=== PATIENT | male | born 1965 | race Caucasian/White ===

== ENCOUNTER 2018-03-23 08:33 | Day surgery (SDC) | payer OTHER, SELFPAY ==
--- NOTE | 2018-03-23 | COLBX_PTH ---
PATIENT: ROCKY COOLEY LOC: EN U#:[id number] AGE/SX: 52/M ROOM: RE03/23/[address]: Dr. Shade Toure MD : 1965 BED: DIS: 03/23/2018 SPEC #: [id number] RECD: 03/23/18 12:02 STATUS: ESTEE DARLYN #: [id number] STEFAN: 03/23/18 00:[address]: Shade Toure DEPT: SURGICAL PATHOLOGY RECD BY: Tyler Acharya ENTERED: 03/23/18 14:50 SP TYPE: COLON BX OTHR DR: Dr. Nnamdi Garcia MD Tissues: Rectum, NOS Procedures: Surgery Specimen Level IV HEADER OPERATION: Colonoscopy PRE-OP DIAGNOSIS: Screening TISSUE SUBMITTED: Rectal polyps (two) MICROSCOPIC DIAGNOSIS Rectal polyps, biopsy: Fragments of tubular adenoma. SJ:woody 03/29/18 MICROSCOPIC DESCRIPTION Slides are reviewed. GROSS DESCRIPTION Received in fixative is one container labeled with the patient's name and designated rectal polyps. The specimen consists of three irregular fragments of light power soft tissue that in aggregate measure 0.6 x 0.5 x 0.2 cm. The specimen is totally submitted in one cassette. / AM:woody 03/23/18 TC:1 CPT: 40226
[2018-03-23 09:01] VITALS: BP 133/85; PULSE 80; RESP 16; TEMP 36.7; O2SAT 99; BMI 31.1
--- NOTE | 2018-03-23 09:55 | H&P.OPEN ---
Past Medical/Surgical History - Planned Operation Planned Operative Procedure/s: cscope Date of Operative Procedure: 03/23/18 Permit Signed: No S.O.S: No Is This Patient Having a Total Joint: No - Previous Hospitalizations/Surgeries HX Hospitalizations: No HX of Surgeries: knee scope. vasectomy Any Problems With Anesthesia: No You/Your Family Experience Fever (Hyperthermia) With Anes: No Cholinesterase deficiency: No - Cardiovascular Hx Chest Pain within Last 2 months: No Hx of Irregular Heartbeat and/or Afib: Yes - pvc's occ Hx Heart Attack: No Hx Congestive Heart Failure: No Hx Rheumatic Fever: No Hx Hypertension: No Hx Internal Defibrillator: No Hx Pacemaker: No Hx Cardiac Catheterization: No Hx Cardiac Surgery/Stents/Etc.: No Hx Stress Test: No HX Edema: No Hx Pain in Legs when Walking/Leg Cramps: No - Respiratory Chronic Cough: No HX of Shortness of Breath: No Hoarseness: No Hx Chronic Obstructive Pulmonary Disease (COPD): No Hx Asthma: No Hx Emphysema: No Hx Sleep Apnea: Yes CPAP: Yes BIPAP: No Hx Oxygen Use at Home: No Hx Respiratory Tract Infection/Cold (presently): No Result (for STOP score): Positive Hx Smoking: No Smoking Status: Never smoker - Gastrointestinal Hx Gastroesophageal Reflux: No Hx Gastrointestinal Disorders: No Hx Gastrointestinal Bleed: No Hx Ulcer: No Hx Hiatal Hernia: No Difficulty Chewing/Swallowing: No Recent Onset of Swallowing Problems: No Special diet followed at home: No Hx Unplanned Weight Loss of 20#: No HX Unplanned Weight Gain of 20#: No - Neurological Hx Seizures: No HX Syncope/Blackout Spells/Unconsciousness: No Hx CVA/Stroke: No Hx Transient Ischemic Attacks (TIA): No Hx Multiple Sclerosis: No Hx Parkinson's Disease: No Hx Head/Neck Injury: No Hx Headaches: No Hx Back Injury/Pain: No Recent Onset of Speech Difficulty: No Restless Legs: Yes - occ Does patient have nerve stimulator: No Patient instructed to have device shut off: No Rep notified?: No - Blood Disorder Hx Leukemia: No Bleeding Tendencies: No Hx Deep Vein Thrombosis: No Hx High Cholesterol: Yes - on med Blood Transmitted Disease: No Hx Hepatitis: No Hx Cirrhosis: No Hx Anemia: No Hx Blood Disorders: No - Genitourinary Hx Renal Disease: No - Musculoskeletal Hx Arthritis: No Hx Rheumatoid Arthritis: No Hx Gout: No Recent Onset of an Orthopedic Problem: No - Endocrine Hx Diabetes: No Thyroid Disease: No Hx Steroid Therapy: No - Psycho/Social Hx Substance Use: No Hx Alcohol Use: Yes - socially Hx Anxiety: No Hx Depression: No Mental Illness: No Hx Dementia: No - Miscellaneous Hx Cancer: No Recent Exposure to Contagious Disease: No Active MRSA: No Hx of C-Diff: No Any Loose Teeth: No Allergies latex Allergy (Verified 03/20/18 14:47) Itching - Discharge Is Pt Admitted From a Assisted, or a Fpc: No Who Could Help: family After D/C, Where Do you Plan to Go: Return Home - Physical Exam General: Alert, Oriented x3, Cooperative Neck: No JVD Lungs: Normal air movement Cardiovascular: Regular rate, Regular Rhythm Abdomen: Soft, Non Tender, Non-Distended Vital Signs Temp Pulse Resp BP Pulse Ox 98.1 F 80 16 133/85 H 99 03/23/18 09:01 03/23/18 09:01 03/23/18 09:01 03/23/18 09:01 03/23/18 09:01 Oxygen Delivery Method Room Air Weight: 242 lb 15.19 oz Body Mass Index (BMI) 31.1 Assessment/Plan 52-year-old male for screening colonoscopy 1. Patient reports he has never had a colonoscopy in the past. He has no family history of colon cancer. He has no active issues at this time. He has no bleeding or abdominal pain. 2. I explained endoscopy in detail to the patient. I explained the risks including but not limited to stroke or heart attack with anesthesia, perforation of the GI tract, bleeding, infection. I explained that any of these could necessitate further emergency surgery. The patient understands and all questions were answered sufficiently. The patient wishes to proceed with procedure. Shade Toure MD Pager: [facility] [address] [place] [address] [address] [place] [address] Office: Surgery Risks - Colonoscopy Risks Include but are not Limited To: Risks include but are not limited to: Bleeding, perforation requiring further surgery, inability to complete colonoscopy requiring barium enema.
--- NOTE | 2018-03-23 10:28 | PCM.OPRPT ---
Problem List (1) Screen for colon cancer Status: Acute Report of Operation Date of Procedure: 03/23/18 Pre-Operative Diagnosis: Screening colon cancer Post-Operative Diagnosis: 2 rectal polyps Surgery/Procedure Performed:: Colonoscopy with snare polypectomy Description of Procedure: The major risks and benefits associated with the procedure were explained to the patient in detail. The patient verbalized understanding and agreement with the same. The patient was brought to the endoscopy suite. After adequate sedation was achieved, the patient was placed in the left lateral decubitus position and a digital rectal exam was performed. This examination was within normal limits. A well-lubricated colonoscope was then inserted into the rectum and advanced under direct visualization to the level of the cecum. The bowel prep was good. The cecum was identified by both visual and anatomic landmarks. A photograph was taken of the end of the cecum. The scope was then fully withdrawn while examining the color, texture, anatomy and integrity of the mucosa from the cecum to the anal canal. The patient did have 2 small polyps in the rectum. These were both removed with cautery snare. Hemostasis was good at both sites. Otherwise the findings were consistent with normal colonic mucosa. Over 6 minutes were taken to examine the colonic mucosa. Upon reaching the rectum the scope was retroflexed to examine the distal rectal vault. The scope was then straightened and was completely retrieved upon exiting the anal canal and the procedure was terminated. The patient was then transferred to the recovery room in stable condition. Recommendations for follow up: Dependent on pathology
[2018-03-23 10:31] VITALS: BP 133/85; BP 149/93; PULSE 86; RESP 18; TEMP 37.1; O2SAT 98
[2018-03-23 10:35] VITALS: BP 133/85; BP 143/100; PULSE 90; RESP 16; O2SAT 98
[2018-03-23 10:43] VITALS: BP 133/85; BP 137/94; PULSE 87; RESP 16; O2SAT 96
[2018-03-23 10:47] VITALS: BP 133/85; BP 153/92; PULSE 81; RESP 18; O2SAT 96
[2018-03-23 11:10] VITALS: BP 133/85
== END 2018-03-23 11:12 | disposition home or self-care (01) ==
LOC: EN 08:34
PROVIDERS: Family Provider Family Medicine; PCP Family Medicine; Visit Provider Surgery
PROC: 0DJD8ZZ Inspection of Lower Intestinal Tract, Via Natural or Artificial Opening Endoscopic (ICD-10-PCS; CPT 45378; principal; 2018-03-23 09:40)
DX: Z12.11 Encounter for screening for malignant neoplasm of colon (principal); D12.8 Benign neoplasm of rectum; Z79.899 Other long term (current) drug therapy; G47.30 Sleep apnea, unspecified; G25.81 Restless legs syndrome; E78.00 Pure hypercholesterolemia, unspecified
CPT/HCPCS: 45385; 88305; J7120

== ENCOUNTER → 2019-02-25 08:40 | Outpatient (CLI) | payer OTHER, SELFPAY ==
[2019-02-25 11:23] LABS: ALB/GLOB Ratio 1.4 RATIO (0.9-2.4); AST(SGOT) 20 U/L (15-37); Alanine Aminotransfer ALT/SGPT 28 U/L (16-61); Albumin, Serum 4.2 g/dL (3.2-5.0); Alkaline Phosphatase 42 U/L (45-117); Anion Gap 7 (5-15); BUN 14 mg/dL (7-18); BUN/Creat Ratio 14.5 RATIO (10-20); Chloride 108 mmol/L (98-107); Creatinine, Serum 0.96 mg/dL (0.70-1.30); EST Glomerular Filtration Rate 87 mL/min (>60); Est Glom Filt Rate - Afr Amer 105 mL/min (>60); Glucose 91 mg/dL (74-106); Potassium 4.6 mmol/L (3.5-5.1); Protein, Total 7.2 g/dL (6.4-8.2); Sodium Level 142 mmol/L (136-145)
== END ==
PROVIDERS: Family Provider Family Medicine; PCP Family Medicine; Referring Provider Family Medicine; Visit Provider Family Medicine
DX: E78.2 Mixed hyperlipidemia (principal)
CPT/HCPCS: 36415; 80053

== ENCOUNTER → 2019-05-17 12:13 | Outpatient (CLI) | payer OTHER, SELFPAY ==
[2019-05-17 15:58] LABS: Absolute Neutrophil Count 3.4 X10^3/uL (2.0-7.7); Basophil# 0.05 X10^3/uL; Basophil% 0.9 % (0-1); Eosinophil# 0.03 X10^3/uL; Eosinophils% 0.5 % (0-5); Hematocrit 44.6 % (40-54); Hemoglobin 15.1 g/dL (13.0-16.5); Lymphocyte % 32.4 % (19-41); Mean Corp Hgb Conc 33.9 g/dL (32-36); Mean Corpuscular Hgb 30.3 pg (27.0-32.0); Mean Corpuscular Volume 89.4 fL (80-94); Mean Platelet Vol. 10.9 fl (6.2-12.0); Monocyte# 0.52 X10^3/uL; Monocyte% 8.9 % (0-10); NRBC Flagged by Analyzer 0 % (0-5); Neutrophil # 3.36 X10^3/uL (2.7-7.7); Neutrophil % 57.1 % (47-70); Platelet Count 224 K/mm3 (150-450); RBC Distribution Width CV 12.2 % (11.6-14.6); RBC Distribution Width SD 39.8 fl (35.1-43.9); Red Blood Count 4.99 M/mm3 (4.6-6.2); White Blood Count 5.9 K/mm3 (4.4-11.0)
[2019-05-17 16:11] LABS: ALB/GLOB Ratio 1.5 RATIO (0.9-2.4); AST(SGOT) 14 U/L (15-37); Alanine Aminotransfer ALT/SGPT 27 U/L (16-61); Albumin, Serum 4.4 g/dL (3.2-5.0); Alkaline Phosphatase 45 U/L (45-117); Anion Gap 9 (5-15); BUN 12 mg/dL (7-18); Calcium,Total 9.2 mg/dL (8.5-10.1); Chloride 107 mmol/L (98-107); EST Glomerular Filtration Rate 83 mL/min (>60); Est Glom Filt Rate - Afr Amer 101 mL/min (>60); Globulin 2.9 g/dL (2.2-4.2); Glucose 90 mg/dL (74-106); Lipase 212 U/L (73-393); Potassium 4.6 mmol/L (3.5-5.1); Protein, Total 7.3 g/dL (6.4-8.2); Sodium Level 142 mmol/L (136-145)
== END ==
PROVIDERS: Family Provider Family Medicine; PCP Family Medicine; Referring Provider Family Medicine; Visit Provider Family Medicine
DX: R10.9 Unspecified abdominal pain (principal)
CPT/HCPCS: 36415; 80053; 83690; 85025

== ENCOUNTER → 2019-09-30 10:14 | Outpatient (CLI) | payer OTHER, SELFPAY ==
[2019-09-26 07:55] VITALS: BMI 31.1
--- NOTE | 2019-09-30 10:17 | US_ITS ---
STUDY: ABDOMINAL ULTRASOUND - RIGHT UPPER QUADRANT REASON FOR VISIT: Male, 53 years old abdominal pain. Right upper quadrant pain. TECHNIQUE: Ultrasound evaluation of the right upper quadrant was performed with real-time and static puente-scale imaging. TECHNICAL QUALITY: Adequate. COMPARISON: None. FINDINGS: Liver: The liver measures 16.5 cm. There is normal echogenicity of the liver. The bile ducts are within normal limits. There is hepatic color flow. The direction of portal flow is hepatopetal. There is no demonstrated mass lesion. Gallbladder: Normal distended gallbladder. The gallbladder wall measures 3 mm. There is a negative sonographic Rain''s sign. There is no pericholecystic fluid. There are no gallstones. Common Bile Duct (C.B.D.): The common bile duct measures 4 mm. Pancreas: Normal size of the head, body and tail of the pancreas. There is normal echogenicity of the pancreas. There is no demonstrated pancreatic mass or cyst. Right Kidney: Normal size of the right kidney. The right kidney measures 12.1 cm. Normal renal cortex. The right cortex measures 1.3 cm. There is no demonstrated renal mass or cyst. There is no right hydronephrosis. US/Abdomen Limited IMPRESSION: Normal right upper quadrant ultrasound examination. Electronically Signed: Leonid Naylor DO at 18:25 EST Tel [phone], Service support ,
== END ==
PROVIDERS: Family Provider Family Medicine; PCP Family Medicine; Referring Provider Surgery; Visit Provider Surgery
DX: R10.9 Unspecified abdominal pain (principal)
CPT/HCPCS: 76705

== ENCOUNTER 2019-10-08 05:22 | Day surgery (SDC) | payer OTHER, SELFPAY ==
[2019-09-26 07:55] VITALS: BMI 31.1
[2019-10-08] VITALS (7 sets, daily range): BP systolic 137–169; BP diastolic 75–104; PULSE 89–102; RESP 16; TEMP 36.3–37.4; O2SAT 95–100; BMI 31.9
--- NOTE | 2019-10-08 | IMM_PTH ---
PATIENT: ROCKY COOLEY LOC: [facility] U#:[id number] AGE/SX: 53/M ROOM: RE10/08/[address]: Dr. Sherman uHff MD : 1965 BED: DIS: 10/08/2019 SPEC #: [id number] RECD: 10/09/19 13:57 STATUS: ESTEE REQ #: [id number] STEFAN: 10/08/19 00:[address]: Sherman Huff DEPT: IMMUNOHISTOCHEMISTRY RECD BY: Cherry Lennon ENTERED: 10/09/19 13:57 SP TYPE: IMMUNO OTHR DR: Dr. Nnamdi Garcia MD Tissues: B - Stomach, NOS Procedures: P53 (initial) PHYSICIAN & INSTITUTION [place] [address] SPECIMEN INFORMATION: Tissue Source: B - Antral nodule, biopsy Clinical Info: Epigastric pain Specimen Number: [id number] CPT code: 17633 METHODOLOGY: Deparaffinized sections of prefer/formalin-fixed tissue or PAP/DQ stained slides are incubated with monoclonal/polyclonal antibodies/oligonucleotide probes. Localization is made via biotin free immunoperoxidase method. Appropriate controls are performed and reacted as expected. Results on target cell population are indicated in the following table: RESULTS: ANTIBODY / CLONE RESULT Block B P53 (DO-7) negative These tests were developed and their performance characteristics determined by [facility]. They may not have been cleared or approved by the U.S. Food and Drug Administration. The FDA has determined that such clearance or approval is not necessary. The above immunohistochemical/dualISH markers are ordered and reviewed by the Pathologist. INTERPRETATION: B. Antral nodule, biopsy: No evidence of dysplasia. SJ:woody 10/10/19
--- NOTE | 2019-10-08 | COLBX_PTH ---
PATIENT: ROCKY COOLEY LOC: EN U#:[id number] AGE/SX: 53/M ROOM: RE10/08/[address]: Dr. Sherman Huff MD : 1965 BED: DIS: 10/08/2019 SPEC #: [id number] RECD: 10/08/19 13:21 STATUS: ESTEE DARLYN #: [id number] STEFAN: 10/08/19 00:[address]: Sherman Huff DEPT: SURGICAL PATHOLOGY RECD BY: Saul Bell ENTERED: 10/08/19 13:22 SP TYPE: COLON BX OTHR DR: Dr. Nnamdi Garcia MD Tissues: A - Duodenum, NOS B - Gastric mucous membrane C - Esophagus, NOS D - Esophagus, NOS Procedures: Special Stain Group II Surgery Specimen Level IV Alcian Blue/PAS (control) HEADER OPERATION: EGD (MOD) PRE-OP DIAGNOSIS: Epigastric pain TISSUE SUBMITTED: A - Duodenal biopsy, B - Antral nodule biopsy, C - Distal esophageal biopsy, D - Mid esophageal biopsy MICROSCOPIC DIAGNOSIS A. Duodenum, biopsy: No pathologic change. B. Gastric antrum, biopsy: Mild chronic inflammation. Focal intestinal metaplasia. No evidence of dysplasia. See comment. C. Distal esophagus, biopsy: Fragments of benign squamous mucosa. No evidence of inflammation. D. Mid esophagus, biopsy: Fragments of benign squamous mucosa with changes of reflux. AM:woody 10/09/19 COMMENT B. Alcian blue/PAS stain with matched control supports the above diagnosis. Immunohistochemistry ([id number]) supports the above diagnosis. MICROSCOPIC DESCRIPTION Slides are reviewed. GROSS DESCRIPTION A - Received in fixative is one container labeled with the patient's name and designated duodenal biopsy. The specimen consists of one irregular fragment of light power soft tissue that measures 0.4 x 0.3 x 0.1 cm. The specimen is totally submitted in one cassette. B - Received in fixative is one container labeled with the patient's name and designated antral nodule biopsy. The specimen consists of multiple irregular fragments of light power soft tissue that in aggregate measure 1 x 0.3 x 0.1 cm. The specimen is totally submitted in one cassette. C - Received in fixative is one container labeled with the patient's name and designated distal esophageal biopsy. The specimen consists of multiple irregular fragments of light power soft tissue that in aggregate measure 1 x 0.3 x .1 cm. The specimen is totally submitted in one cassette. D - Received in fixative is one container labeled with the patient's name and designated mid esophageal biopsy. The specimen consists of two irregular fragments of light power soft tissue that in aggregate measure 0.8 x 0.2 x 0.1 cm. The specimen is totally submitted in one cassette. / SJ:rg 10/08/19 TC:3 CPT: 27861 x4, 14129
--- NOTE | 2019-10-08 05:51 | HP.PCM_ITS ---
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 Required: No Is patient in pain?: No Allergies latex Allergy (Verified 09/26/19 07:53) Itching Medications Loratadine [Claritin] 10 mg PO DAILY 03/20/18 [History Confirmed 09/26/19] Multivitamin [Multiple Vitamins] 1 ea PO DAILY 03/20/18 [History Confirmed 09/26/19] Pitavastatin Calcium [Livalo] 4 mg PO DAILY 03/20/18 [History Confirmed 09/26/19] amitriptyline 25 mg tablet PO #90 tab 09/26/19 [History Confirmed 09/26/19] omega-3 fatty acids 1,000 mg capsule 1,000 mg PO DAILY 09/26/19 [History Confirmed 09/26/19] omeprazole 40 mg capsule,delayed release PO #90 cap 09/26/19 [History Confirmed 09/26/19] [facility] Medical History (Updated 09/26/19 @ 08:11 by Sherman Huff MD) Epigastric pain (Acute) Anxiety (Acute) GERD (gastroesophageal reflux disease) (Acute) Sleep apnea (Acute) Surgical History (Updated 09/26/19 @ 07:50 by Alexandrea Boudreaux) History of colonoscopy (Acute ~2017) History of vasectomy (Acute) Family History (Updated 09/26/19 @ 07:51 by Alexandrea Boudreaux) Father Heart disease Myocardial infarction Cancer pancreas Mother Diabetes Social History (Updated 09/26/19 @ 08:13 by Sherman Huff MD) Smoking Status: Never smoker alcohol intake: current HPI HPI HPI: ROCKY COOLEY, is a 53 M who presents to the office today for surgical consultation regarding epigastric pain with radiation to the back and bloating. The patient was referred by Dr. Maynor Fine and his primary care physician is Dr. Nnamdi Garcia. Written copy of my consult will be returned to them. Since April the patient has been having this trouble. He occasionally has nausea as well. More recently had. Pizza watching a Monday football game and then for actually several days later did not feel well. Had increased bloating nausea epigastric pain some radiation of pain to the back. He strictly denies having any reflux symptoms. He has been placed on omeprazole 40 mg daily and he thought that that improved his condition. However when he dropped back to 20 mg a day his symptoms seem to worsen. In April he was taking a significant amount of ibuprofen and Aleve but that now has stopped. He utilizes acetaminophen for other discomforts. He had laboratory obtained May 17, 2019 at the [facility]. A complete metabolic profile was not remarkable. AST slightly low at 14. White blood cell count was 5.9 with a hemoglobin 15.1 radha tocrit 44.6 with a count 224,000 with a normal shift. He thought he ran a slight fever this past weekend. 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 HPI HPI HPI: ROCKY COOLEY, is a 53 M who presents to the office today for ROS General General: No weight change, appetite, fatigue, colon cancer, breast cancer or weakness HEENT HEENT: No difficulty swallowing, eye injury, eye surgery, swollen glands or hoarseness Endo Endocrine: No thyroid disease, diabetes mellitus, thyroid cancer, Hair loss, heat intolerance or cold intolerance Cardio Cardiovascular: No murmur, pacemaker, heart disease, atrial fibrillation, high blood pressure, heart attack, heart stent, palpitations, shortness of breat with exertion or chest pain Psych Psychiatric: Yes anxiety; no depression or hearing voices Resp Respiratory: No shortness of breath, Yes sleep apnea, No cough, No COPD, No asthma, No emphysema, No wheezing Gastro Gastrointestinal: Yes abdominal pain, No nausea or vomiting, No diarrhea, No constipation, No blood in stool, Yes acid reflux, No hemorrhoids, No ulcers, No gallbladder problem, No black,tarry stools Radha Hematologic: No blood thinners, No blood disorders, No bleeding, No anemia, No blood clots Neuro Neurologic: No weakness Exam Const General: cooperative, healthy appearing, comfortable Nutritional Appearance: obese Orientation: alert, awake [facility] Head: normal to inspection Chest Chest palpation & inspection: normal inspection of the chest Resp Effort & Inspection: normal respiratory effort Auscultation: clear to auscultation bilaterally Cardio Rate: regular rate Rhythm: regular rhythm Heart Sounds: no murmurs GI Palpation: soft, no hepatosplenomegaly Auscultation: normal bowel sounds Skin General: no rashes or lesions noted Neuro Cognition: normal cognition Extrem General: no calf tenderness bilaterally Psych Affect: normal affect Assessment & Plan Problems 1. Epigastric pain R10.13 Plan 53-year-old gentleman with postprandial epigastric pain. He absolutely denies reflux or heartburn symptoms. He was improved on omeprazole but symptoms worsened upon decreasing the dosage. His most recent episode occurred after eating pizza and beer. His symptoms then lingered for several days. He has had laboratory drawn April 2019 which did not demonstrate any liver function test abnormality. I proposed for him a gallbladder ultrasound. If that is notable for stones that I would suggest probable biliary colic, chronic cholecystitis, cholelithiasis. If that is unremarkable with a possible peptic ulcer disease and would recommend a esophagogastroduodenoscopy with appropriate matthew biopsies. If that was unremarkable then would pursue a third testing with hepatobiliary imaging. He has had an opportunity to ask and have questions answered. He is comfortable with starting with a noninvasive approach. We will schedule and proceed at his discretion. I very much appreciate the kind opportunity of assisting with surgical care. CC: Dr Maynor Gonzalez and Dr. Nnamdi Huff M.D., F.A.C.S. Orders Orders: Gallbladder Today R10.9 Coding Level of Care Code 81983 Diagnoses Epigastric pain R10.13 09/26/19 0814 <Electronically signed by Sherman gore MD> Date _ Sherman Huff MD I have re-examined the patient. There are no clinical changes since date of exam. The patient's gallbladder ultrasound was interpreted as normal. We will proceed with esophagogastroduodenoscopy with possible biopsy or polypectomy as noted above. Sherman Huff M.D., F.A.C.S.
[2019-10-08] MEDS: Lactated Ringers 1,000 ML 100 ML IV (06:07)
--- NOTE | 2019-10-08 06:50 | OP.EGD_ITS ---
Patient Name: Jose G Davila Procedure Date: 10/08/2019 6:12 AM Date of : 1965 Age: 53 Procedure: Upper GI endoscopy Indications: Epigastric abdominal pain Providers: Sherman Huff MD Referring MD: Sherman Huff MD Medicines: Midazolam 3.5 mg IV, Meperidine 100 mg IV Complications: No immediate complications. Procedure: Pre-Anesthesia Assessment: - Prior to the procedure, a History and Physical was performed, and patient medications and allergies were reviewed. The patient's tolerance of previous anesthesia was also reviewed. The risks and benefits of the procedure and the sedation options and risks were discussed with the patient. All questions were answered, and informed consent was obtained. Prior Anticoagulants: The patient has taken no previous anticoagulant or antiplatelet agents. ASA Grade Assessment: II - A patient with mild systemic disease. After reviewing the risks and benefits, the patient was deemed in satisfactory condition to undergo the procedure. After obtaining informed consent, the endoscope was passed under direct vision. Throughout the procedure, the patient's blood pressure, pulse, and oxygen saturations were monitored continuously. The gastroscope was introduced through the mouth, and advanced to the second part of duodenum. The upper GI endoscopy was accomplished without difficulty. The patient tolerated the procedure well. Moderate Sedation: Moderate (conscious) sedation was personally administered by the endoscopist. The following parameters were monitored: oxygen saturation, heart rate, blood pressure, and response to care. Total physician intraservice time was 15 minutes. Scope In: 6:33:30 AM Scope Out: 6:40:59 AM Total Procedure Duration Time 0 hours 7 minutes 29 seconds Findings: A medium-sized hiatal hernia was present. Biopsies were taken with a cold forceps for histology. Biopsies were taken with a cold forceps in the middle third of the esophagus for histology. Diffuse mildly erythematous mucosa without bleeding was found in the gastric antrum. There was a small lipoma, 10 mm in diameter, in the prepyloric region of the stomach. Biopsies were taken with a cold forceps for histology. The examined duodenum was normal. Biopsies were taken with a cold forceps for histology. Impression: - Medium-sized hiatal hernia. Biopsied. Z line at 43cm - Erythematous mucosa in the antrum with suspected gastric lipoma. Biopsied. - Normal examined duodenum. Biopsied. - Biopsies were taken with a cold forceps for histology in the middle third of the esophagus. Recommendation: - Discharge patient to home. - Resume previous diet. - Continue present medications. - Telephone my office for pathology results in 1 week. Findings do not correlated with significant abdominal pain. If patient remains improved then no further testing. If symptoms persist then will consider a HIDA scan Procedure Code(s): --- Professional --- 81489, Esophagogastroduodenoscopy, flexible, transoral; with biopsy, single or multiple 86022, 59, Moderate sedation services provided by the same physician or other qualified health healthcare network consultant performing the diagnostic or therapeutic service that the sedation supports, requiring the presence of an independent trained observer to assist in the monitoring of the patient's level of consciousness and physiological status; initial 15 minutes of intraservice time, patient age 5 years or older Diagnosis Code(s): --- Professional --- K44.9, Diaphragmatic hernia without obstruction or gangrene K31.89, Other diseases of stomach and duodenum D17.5, Benign lipomatous neoplasm of intra-abdominal organs R10.13, Epigastric pain CPT copyright 2017 [employer]. All rights reserved. The codes documented in this report are preliminary and upon pressure tank operator review may be revised to meet current compliance requirements. Sherman Huff MD 10/08/2019 6:49:24 AM This report has been signed electronically. Number of Addenda: 0 Note Initiated On: 10/08/2019 6:12 AM
== END 2019-10-08 07:41 | disposition home or self-care (01) ==
LOC: EN 05:23 → AC 05:24
PROVIDERS: Family Provider Family Medicine; PCP Family Medicine; Referring Provider Surgery; Visit Provider Surgery
PROC: (CPT 43239; principal; 2019-10-08 06:25)
DX: D17.5 Benign lipomatous neoplasm of intra-abdominal organs (principal); K21.9 Gastro-esophageal reflux disease without esophagitis; K44.9 Diaphragmatic hernia without obstruction or gangrene; K31.89 Other diseases of stomach and duodenum; G47.30 Sleep apnea, unspecified; F41.9 Anxiety disorder, unspecified; Z79.899 Other long term (current) drug therapy; Z91.040 Latex allergy status
CPT/HCPCS: 43239; 88305; 88313; 88342; 99152; 99153; J7120

== ENCOUNTER → 2019-10-17 07:52 | Outpatient (CLI) | payer OTHER, SELFPAY ==
[2019-10-08 05:42] VITALS: BMI 31.9
--- NOTE | 2019-10-17 07:52 | CT_ITS ---
STUDY: CT ABDOMEN AND PELVIS WITH CONTRAST REASON FOR EXAM: Male, 53 years old. Upper abdomen pain x years, worse in recent months, bloating. No prior surgery. RADIATION DOSAGE (If Supplied By Facility): CTDIvol = ( 21.10 ) mGy, DLP = ( 1241.63 ) mGycm TECHNIQUE: Transaxial images were obtained from the dome of the diaphragm to the symphysis pubis with oral contrast. Readi-CAT and amp; 100mL Isovue-300 was administered. Sagittal and coronal images were reconstructed. Individualized dose optimization techniques were used for this CT. COMPARISON: Ultrasound 09/30/2019 FINDINGS: The visualized lung bases are unremarkable. The visualized portions of the heart are within normal limits. Normal liver. Normal gallbladder and extrahepatic biliary system. Normal spleen. Normal pancreas. Normal bilateral adrenal glands. Nonrotated right kidney which is a normal variant. Normal left kidney. Normal visualized stomach. Normal small intestine. Normal colon. The appendix is visualized and appears normal. Normal abdominal aorta. Normal inferior vena cava. Normal retroperitoneum. Normal urinary bladder. Normal abdominal wall. Normal osseous structures. CT/Abdomen/Pelvis WITH Contrast IMPRESSION: Normal enhanced CT of the abdomen and pelvis. Electronically Signed: Tyler Bellamy MD at 8:55 EST Tel , Service support ,
== END ==
PROVIDERS: Family Provider Family Medicine; PCP Family Medicine; Referring Provider Surgery; Visit Provider Surgery
DX: R10.9 Unspecified abdominal pain (principal)
CPT/HCPCS: 74177; Q9967

== ENCOUNTER → 2019-12-03 09:53 | Outpatient (CLI) | payer OTHER, SELFPAY ==
[2019-10-22 10:35] VITALS: BMI 31.9
[2019-12-03 14:58] LABS: Free T3 3.1 pg/mL (2.18-3.98); T4 Free Direct 1.12 ng/dL (0.76-1.46); Thyroid Stim Hormone (TSH) 1.64 uIU/mL (0.358-3.74)
== END ==
PROVIDERS: PCP Family Medicine; Visit Provider Family Medicine
DX: Z13.29 Encounter for screening for other suspected endocrine disorder (principal)
CPT/HCPCS: 36415; 84439; 84443; 84481

== ENCOUNTER → 2020-02-28 08:40 | Outpatient (CLI) | payer OTHER, SELFPAY ==
[2019-10-22 10:35] VITALS: BMI 31.9
[2020-02-28 10:54] LABS: ALB/GLOB Ratio 1.3 RATIO (0.9-2.4); AST(SGOT) 15 U/L (15-37); Alanine Aminotransfer ALT/SGPT 30 U/L (16-61); Albumin, Serum 4.1 g/dL (3.2-5.0); Alkaline Phosphatase 43 U/L (45-117); Anion Gap 7 (5-15); BUN 14 mg/dL (7-18); BUN/Creat Ratio 13.9 RATIO (10-20); Calcium,Total 9.1 mg/dL (8.5-10.1); Chloride 109 mmol/L (98-107); Creatinine, Serum 1.01 mg/dL (0.70-1.30); EST Glomerular Filtration Rate 82 mL/min (>60); Est Glom Filt Rate - Afr Amer 99 mL/min (>60); Globulin 3.2 g/dL (2.2-4.2); Glucose 93 mg/dL (74-106); Potassium 4.5 mmol/L (3.5-5.1); Protein, Total 7.3 g/dL (6.4-8.2); Sodium Level 139 mmol/L (136-145)
== END ==
PROVIDERS: PCP Family Medicine; Visit Provider Family Medicine
DX: E78.5 Hyperlipidemia, unspecified (principal)
CPT/HCPCS: 36415; 80053

== ENCOUNTER → 2020-07-23 09:10 | Outpatient (CLI) | payer OTHER, SELFPAY ==
[2020-07-09 15:26] VITALS: BMI 31.1
[2020-07-23 10:15] LABS: AST(SGOT) 15 U/L (15-37); Alanine Aminotransfer ALT/SGPT 28 U/L (16-61); Alkaline Phosphatase 41 U/L (45-117); Bilirubin, Direct 0.13 mg/dL (0.00-0.30); Cholesterol 220 mg/dL (200); Globulin 3.7 g/dL (2.2-4.2); High Density Lipoprotein 52 mg/dL; Protein, Total 7.7 g/dL (6.4-8.2); Triglycerides 181 mg/dL; Very Low Density Lipoprotein 36 mg/dL (5-40)
== END ==
PROVIDERS: PCP Family Medicine; Referring Provider Internal Medicine Cardiovascular Disease; Visit Provider Internal Medicine Cardiovascular Disease
DX: E78.00 Pure hypercholesterolemia, unspecified (principal)
CPT/HCPCS: 36415; 80061; 80076

== ENCOUNTER 2020-08-17 08:43 | Outpatient (RCR) | payer OTHER, SELFPAY ==
[2020-07-09 15:26] VITALS: BMI 31.1
== END 2020-08-22 23:59 ==
LOC: NS 08:43
PROVIDERS: PCP Family Medicine; Visit Provider Internal Medicine Cardiovascular Disease
DX: Z71.3 Dietary counseling and surveillance (principal); E66.9 Obesity, unspecified; E78.00 Pure hypercholesterolemia, unspecified
CPT/HCPCS: 97802

== ENCOUNTER 2020-09-29 13:53 | Outpatient (RCR) | payer OTHER, SELFPAY ==
[2020-07-09 15:26] VITALS: BMI 31.1
== END 2020-10-22 23:59 ==
LOC: NS 13:53
PROVIDERS: PCP Family Medicine; Visit Provider Internal Medicine Cardiovascular Disease
DX: Z71.3 Dietary counseling and surveillance (principal); E66.9 Obesity, unspecified; E78.00 Pure hypercholesterolemia, unspecified
CPT/HCPCS: 97803

== ENCOUNTER 2020-11-16 13:30 | Outpatient (RCR) | payer OTHER, SELFPAY ==
[2020-07-09 15:26] VITALS: BMI 31.1
== END 2020-11-22 23:59 ==
LOC: NS 13:30
PROVIDERS: PCP Family Medicine; Visit Provider Internal Medicine Cardiovascular Disease
DX: Z71.3 Dietary counseling and surveillance (principal); E66.9 Obesity, unspecified; E78.00 Pure hypercholesterolemia, unspecified
CPT/HCPCS: 97803

== ENCOUNTER 2020-11-30 13:02 | Outpatient (RCR) | payer OTHER, SELFPAY ==
[2020-07-09 15:26] VITALS: BMI 31.1
== END 2020-12-20 23:59 ==
LOC: NS 13:02
PROVIDERS: PCP Family Medicine; Visit Provider Internal Medicine Cardiovascular Disease
DX: Z71.3 Dietary counseling and surveillance (principal); E66.9 Obesity, unspecified; E78.00 Pure hypercholesterolemia, unspecified
CPT/HCPCS: 97803

== ENCOUNTER 2020-12-28 14:52 | Outpatient (RCR) | payer OTHER, SELFPAY ==
[2020-07-09 15:26] VITALS: BMI 31.1
== END 2021-01-20 23:59 ==
LOC: NS 14:52
PROVIDERS: PCP Family Medicine; Visit Provider Internal Medicine Cardiovascular Disease
DX: Z71.3 Dietary counseling and surveillance (principal); E66.9 Obesity, unspecified; E78.00 Pure hypercholesterolemia, unspecified
CPT/HCPCS: 97803

== ENCOUNTER 2021-01-25 13:13 | Outpatient (RCR) | payer OTHER, SELFPAY ==
[2020-07-09 15:26] VITALS: BMI 31.1
== END 2021-01-25 23:59 | disposition home or self-care (01) ==
LOC: NS 13:13
PROVIDERS: PCP Family Medicine; Visit Provider Internal Medicine Cardiovascular Disease
DX: Z71.3 Dietary counseling and surveillance (principal); E66.9 Obesity, unspecified; Z68.30 Body mass index [BMI] 30.0-30.9, adult; E78.00 Pure hypercholesterolemia, unspecified
CPT/HCPCS: 97803

== ENCOUNTER → 2021-06-08 09:04 | Outpatient (CLI) | payer OTHER, SELFPAY ==
[2021-02-26 09:16] VITALS: BMI 30.9
[2021-06-08 11:00] LABS: AST(SGOT) 16 U/L (15-37); Alanine Aminotransfer ALT/SGPT 25 U/L (16-61); Alkaline Phosphatase 46 U/L (45-117); Bilirubin, Direct 0.12 mg/dL (0.00-0.30); Cholesterol 178 mg/dL (200); Globulin 3.8 g/dL (2.2-4.2); High Density Lipoprotein 67 mg/dL; Protein, Total 7.8 g/dL (6.4-8.2); Triglycerides 121 mg/dL; Very Low Density Lipoprotein 24 mg/dL (5-40)
== END ==
PROVIDERS: PCP Family Medicine; Referring Provider Internal Medicine Cardiovascular Disease; Visit Provider Internal Medicine Cardiovascular Disease
DX: I25.10 Atherosclerotic heart disease of native coronary artery without angina pectoris (principal); I25.84 Coronary atherosclerosis due to calcified coronary lesion; E78.00 Pure hypercholesterolemia, unspecified
CPT/HCPCS: 36415; 80061; 80076

== ENCOUNTER 2021-11-30 08:09 | Outpatient (CLI) | payer OTHER, SELFPAY ==
[2021-11-30 10:23] LABS: AST(SGOT) 15 U/L (15-37); Alanine Aminotransfer ALT/SGPT 30 U/L (16-61); Albumin, Serum 3.8 g/dL (3.2-5.0); Alkaline Phosphatase 47 U/L (45-117); Bilirubin, Direct 0.12 mg/dL (0.00-0.30); Cholesterol 194 mg/dL (200); Globulin 3.7 g/dL (2.2-4.2); High Density Lipoprotein 45 mg/dL; Protein, Total 7.5 g/dL (6.4-8.2); Triglycerides 249 mg/dL; Very Low Density Lipoprotein 50 mg/dL (5-40)
== END 2021-11-30 23:59 | disposition home or self-care (01) ==
LOC: MTLAB 08:09
PROVIDERS: PCP Family Medicine; Referring Provider Internal Medicine Cardiovascular Disease; Visit Provider Internal Medicine Cardiovascular Disease
DX: E78.00 Pure hypercholesterolemia, unspecified (principal)
CPT/HCPCS: 36415; 80061; 80076

== ENCOUNTER → 2022-03-01 | Outpatient (CLI) | payer OTHER, SELFPAY ==
[2022-03-01 10:51] LABS: AST(SGOT) 15 U/L (15-37); Alanine Aminotransfer ALT/SGPT 29 U/L (16-61); Alkaline Phosphatase 41 U/L (45-117); Anion Gap 8 (5-15); BUN 14 mg/dL (7-18); BUN/Creat Ratio 12.4 RATIO (10-20); Bilirubin, Direct 0.11 mg/dL (0.00-0.30); Calcium,Total 9.1 mg/dL (8.5-10.1); Chloride 107 mmol/L (98-107); Cholesterol 190 mg/dL (200); Creatinine, Serum 1.13 mg/dL (0.70-1.30); EST Glomerular Filtration Rate 72 mL/min (>60); Est Glom Filt Rate - Afr Amer 87 mL/min (>60); Globulin 3.5 g/dL (2.2-4.2); Glucose 109 mg/dL (74-106); High Density Lipoprotein 55 mg/dL; Potassium 4.4 mmol/L (3.5-5.1); Protein, Total 7.5 g/dL (6.4-8.2); Sodium Level 141 mmol/L (136-145); Triglycerides 154 mg/dL; Very Low Density Lipoprotein 31 mg/dL (5-40)
== END | disposition home or self-care (01) ==
LOC: MTLAB 08:31
PROVIDERS: Internal Medicine Cardiovascular Disease; PCP Family Medicine; Referring Provider Family Medicine; Visit Provider Family Medicine
DX: I10 Essential (primary) hypertension (principal)
CPT/HCPCS: 36415; 80048; 80061; 80076

== ENCOUNTER → 2022-07-20 | Outpatient (CLI) | payer OTHER, SELFPAY ==
[2022-07-20 10:26] LABS: Cholesterol 233 mg/dL (200); High Density Lipoprotein 56 mg/dL; Triglycerides 249 mg/dL; Very Low Density Lipoprotein 50 mg/dL (5-40)
== END | disposition home or self-care (01) ==
LOC: MTLAB 08:51
PROVIDERS: PCP Family Medicine; Referring Provider Family Medicine; Visit Provider Family Medicine
DX: E78.2 Mixed hyperlipidemia (principal)
CPT/HCPCS: 36415; 80061

== ENCOUNTER → 2022-09-30 | Outpatient (CLI) | payer OTHER, SELFPAY ==
[2022-09-30 10:30] LABS: AST(SGOT) 19 U/L (15-37); Alanine Aminotransfer ALT/SGPT 37 U/L (16-61); Alkaline Phosphatase 42 U/L (45-117); Bilirubin, Direct 0.12 mg/dL (0.00-0.30); Cholesterol 188 mg/dL (200); Globulin 3.2 g/dL (2.2-4.2); High Density Lipoprotein 45 mg/dL; Protein, Total 7.2 g/dL (6.4-8.2); Triglycerides 176 mg/dL; Very Low Density Lipoprotein 35 mg/dL (5-40)
== END | disposition home or self-care (01) ==
LOC: MTLAB 09:20
PROVIDERS: PCP Family Medicine; Referring Provider Internal Medicine Cardiovascular Disease; Visit Provider Internal Medicine Cardiovascular Disease
DX: E78.00 Pure hypercholesterolemia, unspecified (principal)
CPT/HCPCS: 36415; 80061; 80076

== ENCOUNTER 2022-10-04 11:45 | Inpatient (IN) | payer OTHER, SELFPAY ==
[2022-10-04] VITALS (9 sets, daily range): BP systolic 124–135; BP diastolic 75–85; PULSE 77–91; RESP 16–18; TEMP 36.4–37.2; O2SAT 93–98; BMI 31.1
--- NOTE | 2022-10-04 10:38 | ECHOD_ITS ---
Reason For Study: ARRYTHMIA Procedure This was a 2D Doppler, Color Flow transthoracic echocardiogram. The study was technically difficult. Exam performed portable in patient room. Left Ventricle Normal LV size. Apical false tendon noted. Left ventricular systolic function is normal. The estimated ejection fraction is 60 %. No evidence for diastolic dysfunction. No regional wall motion abnormalities noted. Right Ventricle Normal RV size. Normal systolic function. Atria Normal left atrium. Normal right atrium. No doppler evidence for ASD. Mitral Valve There is no mitral annular calcification. Normal mitral valve. Trivial mitral valve insufficiency. Tricuspid Valve Normal tricuspid valve. Trivial tricuspid valve insufficiency. Unable to estimate RV systolic pressure/pulmonary artery pressure due to technically difficult study. Aortic Valve Trisinus/trileaflet aortic valve. Mild focal aortic valve calcification. Pulmonic Valve The pulmonic valve is not well visualized. Great Vessels Normal sized aortic root. Pericardium/Pleural No pericardial effusion. MMode/2D Measurements & Calculations LVIDd: 5.0 cm IVSd: 0.76 cm Ao root diam: 3.1 cm LVIDs: 3.8 cm LVPWd: 1.1 cm RVDd: 3.0 cm FS: 24.3 % LAV(MOD-bp): 38.2 ml LVAd ap4: 24.2 cm2 SV(MOD-sp4): 31.1 ml LAV(MOD-bp) Indexed: 16.6 ml/m2 LVLd ap4: 7.5 cm LAV(MOD-sp2): 42.5 ml EDV(MOD-sp4): 63.7 ml LAV(MOD-sp4): 33.1 ml EDV(sp4-el): 65.9 ml LVAs ap4: 15.9 cm2 LVLs ap4: 6.5 cm ESV(MOD-sp4): 32.6 ml ESV(sp4-el): 32.7 ml EF(MOD-sp4): 48.8 % EF(sp4-el): 50.3 % SV(sp4-el): 33.2 ml LA A4 area: 14.8 cm2 LA dimension(2D): 4.1 cm RA A4 area: 17.7 cm2 Time Measurements MV dec time: 0.25 sec Doppler Measurements & Calculations MV E max horace: 74.4 cm/sec Lat Peak E' Horace: 8.0 cm/sec Med Peak E' Horace: 7.9 cm/sec MV A max horace: 63.2 cm/sec E/E' lat: 9.3 E/E' med: 9.5 MV E/A: 1.2 MV V2 max: 77.3 cm/sec Ao V2 max: 150.4 cm/sec MV max P.4 mmHg MV dec slope: 372.9 cm/sec2 Ao max P.1 mmHg MV V2 mean: 47.8 cm/sec Ao V2 mean: 100.7 cm/sec MV mean P.0 mmHg Ao mean P.8 mmHg MV V2 VTI: 18.4 cm Ao V2 VTI: 26.6 cm AV (velocity ratio): 0.69 LV V1 max: 100.0 cm/sec PA V2 max: 104.2 cm/sec LV V1 max P.0 mmHg PA V2 mean: 81.1 cm/sec LV V1 mean P.3 mmHg LV V1 mean: 70.2 cm/sec LV V1 VTI: 18.4 cm ECHO/Echo Complete Interpretation Summary The study was technically difficult. Left ventricular systolic function is normal. The estimated ejection fraction is 60 %. Apical false tendon noted. Trivial mitral valve insufficiency. Trivial tricuspid valve insufficiency. Mild focal aortic valve calcification. Unable to estimate RV systolic pressure/pulmonary artery pressure due to techni rene difficult study. No evidence for diastolic dysfunction. Ordering Physician: Jolynn Fu Referring Physician: Nnamdi Garcia Performed By: Jesenia Márquez RCS
--- NOTE | 2022-10-04 10:43 | HP.PCM.HOS_ITS ---
HPI - General General Date of Admission: 10/04/22 Date of Service: 10/04/22 Chief Complaint: Palpitations HPI Narrative ROCKY COOLEY, is a 56 M with a past medical history as outlined who presents as a transfer from outside hospital ED where he presented with a complaint of palpitations. Patient started having palpitations on the day of admission he said it woke him up from sleep. Palpitations did not seem to improve. He denied any associated chest pain or chest pressure, any shortness of breath, nausea or vomiting, dizziness or lightheadedness. He had not had palpitations like this in the past. Review of symptoms otherwise negative. When he arrived other outside hospital he was found to be in SVT and required several doses of adenosine. However SVT persisted so he was started on Cardizem drip and transferred to [facility]. On arrival at [facility], I reviewed patient. His was at his bedside. Palpitations had resolved and he said he had been taken off of the Cardizem drip after he arrived at the hospital. He denied any chest pain, palpitations, dizziness, nausea, vomiting or diarrhea. Review of symptoms otherwise negative. CBC and BMP were ordered. [facility] Medical History Anxiety Borderline systolic HTN Coronary artery calcification Epigastric pain Gastric mass GERD (gastroesophageal reflux disease) Pure hypercholesterolemia Sleep apnea Home Medications loratadine 10 mg tablet 10 mg PO DAILY Allergies 03/20/18 [History Last Taken 10/07/19] multivitamin 1 ea PO DAILY Supplement 03/20/18 [History Last Taken 10/07/19] amitriptyline 25 mg tablet 25 mg PO QHS 07/09/20 [History Last Taken Unknown] ascorbic acid (vitamin C) 500 mg tablet 500 mg PO DAILY 07/09/20 [History Last Taken Unknown] aspirin 81 mg tablet,delayed release (Adult Low Dose Aspirin) 81 mg PO DAILY 07/09/20 [History Last Taken Unknown] cholecalciferol (vitamin D3) 125 mcg (5,000 unit) capsule 125 mcg PO DAILY 07/09/20 [History Last Taken Unknown] magnesium 250 mg tablet 250 mg PO DAILY Supplement 07/09/20 [History Last Taken Unknown] dupilumab 300 mg/2 mL subcutaneous pen injector (ZappliixBib + Tuck) 300 mg subcut Q2W eczema 09/06/21 [History Last Taken Unknown] vitamin K2 100 mcg capsule 100 mcg PO DAILY Supplement 03/08/22 [History Last Taken Unknown] amlodipine 5 mg tablet 5 mg PO DAILY 10/04/22 [History Last Taken Unknown] evolocumab 140 mg/mL subcutaneous pen injector (Wanda ContrerasSydaily) 140 mg subcut Q2W Cholestrol 10/04/22 [History Last Taken Unknown] gemfibrozil 600 mg tablet 600 mg PO BID triglycerides 10/04/22 [History Last Ta kandice Unknown] pitavastatin calcium 4 mg tablet (Livalo) 4 mg PO DAILY Cholestrol 10/04/22 [History Last Taken Unknown] Allergy/AdvReac Type Severity Reaction Status Date / Time latex Allergy Itching Verified 03/08/22 09:03 atorvastatin AdvReac Severe Myalgias Verified 03/08/22 09:03 simvastatin AdvReac Severe myalgias Verified 03/08/22 09:03 lisinopril AdvReac Intermediate cough Verified 03/08/22 09:03 Family History Father Heart disease Myocardial infarction Cancer pancreas Mother Diabetes Cardiac pacemaker in situ Heart valve disorder Surgical History History of arthroscopy of left knee History of colonoscopy (~2018) History of vasectomy Social History Smoking Status: Former smoker how long ago did patient quit smokin alcohol intake: current alcohol intake frequency: a few times a week substance use type: does not use caffeine: Yes Type: coffee Number of servings: 3 ROS Review of Systems ROS Unobtainable: Denies due to encephalopathy Constitutional Constitutional: Denies anorexia, chills, fatigue, fever(s), malaise or weakness Eyes Eyes: Denies change in vision ENT HEENT: Denies dysphagia, headache(s) or sore throat Cardiovascular Cardiovascular: Reports palpitations and rapid heart rate; Denies chest pain, dyspnea on exertion, edema, lightheadedness, orthopnea, paroxysmal nocturnal dyspnea or syncope Respiratory/Chest Respiratory/Chest: Denies cough, dyspnea, productive cough, shortness of breath at rest, shortness of breath with exertion or wheezing Gastrointestinal Gastrointestinal: Denies abdominal pain, constipation, nausea or vomiting Genitourinary Genitourinary: Denies burning urination or dysuria Musculoskeletal Musculoskeletal: Denies arthralgias or back pain Neurologic Neurologic: Denies confusion, dizziness, focal weakness, headache(s), seizures, syncope or tingling Psychiatric Psychiatric: Denies anxiety Endocrine Endocrinology: Denies change in body appearance Hematologic/Lymphatic Hematologic/Lymphatic: Denies anemia Vital Signs Vital Signs Vital Signs: 10/04/22 09:56 Temperature 97.5 F L Temperature Source Temporal Pulse Rate 91 Respiratory Rate 16 Blood Pressure 130/85 H Blood Pressure Mean 100 Blood Pressure Source Monitor Blood Pressure Position Semi-Fowlers Blood Pressure Location Left Arm Pulse Ox 95 Oxygen Delivery Method Room Air Weight Weight: 236 lb Body Mass Index (BMI) 31.1 Physical Exam Const alert, oriented x3 and no apparent distress General Appearance: cooperative HEENT normocephalic, head/scalp atraumatic, hearing grossly normal bilaterally and moist oral mucous membranes Mouth: oral and palatal mucosa normal Eyes PERRL, EOMs intact bilaterally and conjunctivae normal Neck no lymphadenopathy, supple and no JVD Resp normal respiratory effort, no retractions, no use of accessory muscles and clear to auscultation bilaterally Cardio regular rate, regular rhythm, S1 normal heart sound, S2 normal heart sound and no murmurs GI normal to inspection, nondistended, normoactive bowel sounds, soft to palpation, non-tender and non-distended Extremity normal to inspection, full ROM and no clubbing, cyanosis or edema Neuro oriented x3, CN's II-XII intact bilaterally and moves all extremities Sensorium / Orientation: awake and alert Motor Exam: strength 5/5 throughout Psych affect normal Results Lab / Micro Data Result Diagrams: 10/04/22 10:45 10/04/22 10:45 Assessment & Plan Assessment/Plan (1) SVT (supraventricular tachycardia): PLAN: Plan #SVT * Was in normal sinus rhythm at time of review. He had been weaned off of Cardizem drip after he arrived at [facility]. * CBC and BMP showed no abnormalities. * TSH was 1.62 and free T4 was 1.25. Initial troponin was 109 and trended down slightly to 107. This may be due to troponin leak from SVT. * Cardiology consulted. Will benefit from p.o. Cardizem or beta-shon. Will defer to cardiology. * 2D echo ordered. * Potassium and magnesium within normal limits. * #Hyperlipidemia: On statin and evolocumab injection #Hypertension: On amlodipine History of eczema: On dupilumab subcu injection every 2 weekly. #History of anxiety: On amitriptyline DVT prophylaxis: Lovenox CODE STATUS: Full code * Patient and counseled extensively about different types of CODE STATUS including full code, DNR CCA and DNR CCA. Patient elects to be full code. * Total [id number]-[id number] time 17 minutes. Charges/Coding Visit Charges Inpatient E&M: 60431 Init Hosp L3 Procedures Hospitalists Procedures: 91080 Advncd Care Plan 30 Min
[2022-10-04 11:00] LABS: Hematocrit 44.8 % (40-54); Mean Corp Hgb Conc 35.7 g/dL (32-36); Mean Corpuscular Volume 86.8 fL (80-94); Mean Platelet Vol. 9.8 fl (6.2-12.0); Platelet Count 257 K/mm3 (150-450); RBC Distribution Width CV 11.6 % (11.6-14.6); RBC Distribution Width SD 37.2 fl (35.1-43.9); Red Blood Count 5.16 M/mm3 (4.6-6.2); White Blood Count 7.5 K/mm3 (4.4-11.0)
[2022-10-04 11:17] LABS: Anion Gap 5 (5-15); BUN 13 mg/dL (7-18); BUN/Creat Ratio 14.1 RATIO (10-20); Calcium,Total 9.1 mg/dL (8.5-10.1); Chloride 112 mmol/L (98-107); Creatinine, Serum 0.92 mg/dL (0.70-1.30); EST Glomerular Filtration Rate 90 mL/min (>60); Est Glom Filt Rate - Afr Amer 109 mL/min (>60); Estimated Creatinine Clearance 102.53 ml/min; Glucose 109 mg/dL (74-106); Magnesium 2.5 mg/dL (1.6-2.6); Potassium 4.2 mmol/L (3.5-5.1); Sodium Level 141 mmol/L (136-145)
[2022-10-04 11:30] LABS: T4 Free Direct 1.25 ng/dL (0.76-1.46); Thyroid Stim Hormone (TSH) 1.62 uIU/mL (0.358-3.74)
[2022-10-04 11:34] LABS: Troponin-I HS 109 pg/mL (3.0-78.0)
[2022-10-04 13:31] LABS: Troponin-I HS 107 pg/mL (3.0-78.0)
--- NOTE | 2022-10-04 14:37 | EKG12_ITS ---
Test Reason : ADMISSION Blood Pressure : / mmHG Vent. Rate : 092 BPM Atrial Rate : 092 BPM P-R Int : 174 ms QRS Dur : 106 ms QT Int : 364 ms P-R-T Axes : 042 046 049 degrees QTc Int : 450 ms Normal sinus rhythm Incomplete right bundle branch block Borderline ECG Confirmed by EZEQUIEL HEART, ERNESTINE ([id number]), art editor OFELIA BARRIENTOS ([id number]) on 10/05/2022 11:16:36 AM Referred By: Confirmed By:ERNESTINE NIEVES MD
--- NOTE | 2022-10-04 14:40 | PCM.CONS.C ---
Assessment & Plan Assessment/Plan (1) SVT (supraventricular tachycardia): PLAN: The patient appears to demonstrate evidence compatible with an SVT. 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 It is unclear whether this is been triggered by his recent respiratory illness and use of [id number] decongestants. At the present time he is currently in sinus rhythm. His cardiac rhythm will be monitored as well as his electrocardiogram. He is already undergone additional noninvasive cardiovascular evaluation with a transthoracic echocardiogram. It may not be unreasonable to place him on medical therapy in the interim such as a beta-shon. He can also be considered for future EP evaluation for EPS/RFA. (2) Abnormal cardiac enzyme level: PLAN: The patient does have abnormal cardiac enzyme levels. These enzyme levels do not demonstrate a traditional peak and decline associated with an acute coronary syndrome event. These enzyme levels may be secondary to his SVT and subsequently be a type II non-ST segment elevation MA related event secondary to supply demand mismatch. At the present time it would not be unreasonable to further screen the patient for any obvious evidence of underlying CAD or myocardial ischemia. This would include an exercise tolerance test/imaging study barring a change in the patient's clinical course, etc. Depending upon his evaluation he may or may not need further evaluation in the cardiac catheterization laboratory. (3) Coronary artery calcification: PLAN: The patient has a previous abnormal coronary calcium score performed at an outside hospital stating his LAD calcium score was 1.89. The remainder of his vessels had a calcium score of 0. According to that report his annual risk was 0.4%. He has continued risk factor evaluation and care. He will undergo evaluation and care as noted above. (4) Pure hypercholesterolemia: PLAN: He does have a history of hyperlipidemia. He has been on medical management. His lipid labs will be followed. (5) Borderline systolic HTN: PLAN: There has been a concern of hypertension. He will continue antihypertensive therapy with adjustment as deemed appropriate. Addt'l Comments The above was discussed and reviewed with the patient with his spouse present. This note was generated using a voice recognition system and there may be incorrect words, spelling or punctuation that were not noted when reviewing the office note prior to saving. HPI Consult Data Date of Consult: 10/04/22 HPI Narrative HPI Narrative: ROCKY COOLEY, is a 56 year old white male who presents for cardiovascular consultation based upon concerns of SVT and abnormal cardiac enzymes superimposed upon a history of hyperlipidemia,hypertension, coronary artery calcification, and [place] treated with CPAP. He states that he recently has been recuperating from the flu . He notes that he has had coughing episodes and congestion with this. Yesterday evening he used Afrin nasal spray, which he states he has done in the past, as well as Mucinex to help relieve his congestion so that he could sleep with his CPAP device. He states he awoke early this morning as he did not feel well. He subsequently had his spouse take him to the [facility] emergency department in [place], [place]. There he was found to be in what was recorded as an SVT. He subsequently underwent evaluation with laboratory studies, ECGs, and chest x-rays. While there he was treated with IV adenosine. Initially the first dose of 6 mg was reported as unsuccessful. The second dose of 12 mg was reported as successful although only transiently. According to the medical records available for review it appears that he was going in and out of his SVT at ventricular rates in excess of 200 bpm. He received multiple doses of IV adenosine and was subsequently treated with IV diltiazem. He was to be admitted to their facility for further inpatient evaluation and care, however, they reported no beds available. Thus, he was subsequently transferred to [facility] for further evaluation and care. By the time he arrived at [facility] he had been noted to spontaneously return to sinus rhythm. His IV diltiazem infusion was subsequently discontinued. He states that he knows when he has a PVC because it leads to a cough. He notes this was a different sensation. It was a different sensation in his chest. He states when he arrived at the emergency department he felt transiently lightheaded. He did not lose consciousness. He states prior to his recent illness he had been feeling fine. He does not recall any other forms of chest discomfort or difficulty breathing. He has not had orthopnea or PND or peripheral pitting edema. He denies any history of syncope. At the present time he appears to be resting comfortably. His cardiac rhythm has remained sinus rhythm. He has undergone evaluation with cardiac enzymes. He has had 2 high-sensitivity troponin I levels that have been mildly elevated and without significant change with respect to an increase/decrease. He also underwent evaluation with a transthoracic echocardiogram. The results are as noted. He has not undergone any other cardiovascular testing in the past such as exercise tolerance test/imaging studies or diagnostic cardiac catheterization. [facility] Medical History Anxiety Borderline systolic HTN Coronary artery calcification Epigastric pain Gastric mass GERD (gastroesophageal reflux disease) Pure hypercholesterolemia Sleep apnea Home Medications loratadine 10 mg tablet 10 mg PO DAILY Allergies 03/20/18 [History Last Taken 10/07/19] multivitamin 1 ea PO DAILY Supplement 03/20/18 [History Last Taken 10/07/19] amitriptyline 25 mg tablet 25 mg PO QHS 07/09/20 [History Last Taken Unknown] ascorbic acid (vitamin C) 500 mg tablet 500 mg PO DAILY 07/09/20 [History Last Taken Unknown] aspirin 81 mg tablet,delayed release (Adult Low Dose Aspirin) 81 mg PO DAILY 07/09/20 [History Last Taken Unknown] cholecalciferol (vitamin D3) 125 mcg (5,000 unit) capsule 125 mcg PO DAILY 07/09/20 [History Last Taken Unknown] magnesium 250 mg tablet 250 mg PO DAILY Supplement 07/09/20 [History Last Taken Unknown] dupilumab 300 mg/2 mL subcutaneous pen injector (Dupixent) 300 mg subcut Q2W eczema 09/06/21 [History Last Taken Unknown] vitamin K2 100 mcg capsule 100 mcg PO DAILY Supplement 03/08/22 [History Last Taken Unknown] amlodipine 5 mg tablet 5 mg PO DAILY 10/04/22 [History Last Taken Unknown] evolocumab 140 mg/mL subcutaneous pen injector (Repatha SureSyick) 140 mg subcut Q2W Cholestrol 10/04/22 [History Last Taken Unknown] gemfibrozil 600 mg tablet 600 mg PO BID triglycerides 10/04/22 [History Last Taken Unknown] pitavastatin calcium 4 mg tablet (Livalo) 4 mg PO DAILY Cholestrol 10/04/22 [History Last Taken Unknown] Allergy/AdvReac Type Severity Reaction Status Date / Time latex Allergy Itching Verified 03/08/22 09:03 atorvastatin AdvReac Severe Myalgias Verified 03/08/22 09:03 simvastatin AdvReac Severe myalgias Verified 03/08/22 09:03 lisinopril AdvReac Intermediate cough Verified 03/08/22 09:03 Family History Father Heart disease Myocardial infarction Cancer pancreas Mother Diabetes Cardiac pacemaker in situ Heart valve disorder Surgical History History of arthroscopy of left knee History of colonoscopy (~2018) History of vasectomy Social History Smoking Status: Former smoker how long ago did patient quit smokin alcohol intake: current alcohol intake frequency: a few times a week substance use type: does not use caffeine: Yes Type: coffee Number of servings: 3 ROS Constitutional Constitutional: Reports as per HPI Eyes Eyes: Reports as per HPI ENT HEENT: Reports as per HPI Cardiovascular Cardiovascular: Reports chest pain, lightheadedness and palpitations Respiratory/Chest Respiratory/Chest: Reports chest congestion and cough Gastrointestinal Gastrointestinal: Reports as per HPI Genitourinary Genitourinary: Reports as per HPI Musculoskeletal Musculoskeletal: Reports as per HPI Integumentary Integumentary: Reports as per HPI Neurologic Neurologic: Reports as per HPI Physical Exam Const alert, oriented x3, no apparent distress and healthy appearing Orientation / Consciousness: awake HEENT normocephalic, head/scalp atraumatic and hearing grossly normal bilaterally Eyes PERRL, EOMs intact bilaterally, conjunctivae normal and no scleral icterus Neck full ROM, supple and no JVD Carotids: normal carotid upstroke Chest inspection of chest normal Resp normal respiratory effort and clear to auscultation bilaterally Cardio regular rate, regular rhythm, S1 normal heart sound and S2 normal heart sound GI normal to inspection, nondistended, normoactive bowel sounds Extremity full ROM and no pedal edema Skin no rashes or lesions noted Psych mental status grossly normal Risk Stratification Risk Stratification Applicable: Yes Age >/= 65: No >/= 3 CAD Risk Factors (HTN, HLD, DM, family hx of CAD, or current smoker): Yes Aspirin Use in the Past 7 Days: Yes Severe Angina (>/= episodes in 24 hours): No EKG ST Changes >/= 0.5mm: Yes Positive Cardiac Marker: Yes DEBRA Risk Stratification Score: 4 DEBRA % Risk: 20% Risk Procedure Criteria Type of Procedure Procedure Type: Elective Elective Risks - COVID COVID Risk Discussion: The surgeon/proceduralist and patient have discussed in detail the risk of exposure to and/or potential harm posed by the COVID-19 virus with having a surgery/procedure at this time versus the risk of delaying the surgery/procedure. It is not possible to know either the risk of delaying the surgery or procedure or chance of getting an infection with perfect accuracy, but a joint decision was made between the patient and the surgeon/proceduralist to proceed at this time with the scheduled surgery/procedure as indicated on the consent form. Objective Data Vital Signs: Vital Signs Temp Pulse Resp BP Pulse Ox O2 Del Method 97.5 F L 80 16 130/85 H 95 Room Air 10/04/22 09:56 10/04/22 11:31 10/04/22 09:56 10/04/22 09:56 10/04/22 09:56 10/04/22 09:56 Oxygen Delivery Method Room Air Weight: 236 lb Body Mass Index (BMI) 31.1 Lab / Micro Data Result Diagrams: 10/04/22 10:45 10/04/22 10:45 Labs: Laboratory Results - last 24 hr 10/04/22 10:45: TSH 1.62, Free T4 1.25 10/04/22 10:45: WBC 7.5, RBC 5.16, Hgb 16.0, Hct 44.8, MCV 86.8, MCH 31.0, MCHC 35.7, RDW Std Deviation 37.2, RDW Coeff of Reji 11.6, Plt Count 257, MPV 9.8 10/04/22 10:45: Sodium 141, Potassium 4.2, Chloride 112 H, Carbon Dioxide 24.0, Anion Gap 5, BUN 13, Creatinine 0.92, Estim Creat Clear Calc 102.53, Est GFR (MDRD) Af Amer 109, Est GFR (MDRD) Non-Af 90, BUN/Creatinine Ratio 14.1, Glucose 109 H, Calcium 9.1, Magnesium 2.5 10/04/22 10:45: Troponin I High Sens 109 H 10/04/22 12:45: Troponin I High Sens 107 H Cardiology Labs/Tests 10/04/22 10:45: WBC 7.5, RBC 5.16, Hgb 16.0, Hct 44.8, MCV 86.8, MCH 31.0, MCHC 35.7, Plt Count 257, MPV 9.8 10/04/22 10:45: Sodium 141, Potassium 4.2, Chloride 112 H, Carbon Dioxide 24.0, Anion Gap 5, BUN 13, Creatinine 0.92, Est GFR (MDRD) Af Amer 109, Est GFR (MDRD) Non-Af 90, BUN/Creatinine Ratio 14.1, Glucose 109 H, Calcium 9.1, Magnesium 2.5 Rhythm: Sinus rhythm EKG: Sinus rhythm; incomplete right bundle branch block; nonspecific ST/T wave abnormality ECHO: As noted below Radiography Diagnostic Testing: Radiology Impression Echocardiogram 10/04/22 10:38 Interpretation Summary The study was technically difficult. Left ventricular systolic function is normal. The estimated ejection fraction is 60 %. Apical false tendon noted. Trivial mitral valve insufficiency. Trivial tricuspid valve insufficiency. Mild focal aortic valve calcification. Unable to estimate RV systolic pressure/pulmonary artery pressure due to technically difficult study. No evidence for diastolic dysfunction. Ordering Physician: Jolynn Fu Referring Physician: Nnamdi Garcia Performed By: Jesenia Márquez RCS
[2022-10-04] MEDS: Metoprolol Tartrate 50 MG Tablet PO ×2 (15:10→21:07)
[2022-10-04 16:57] LABS: Troponin-I HS 87 pg/mL (3.0-78.0)
[2022-10-04] MEDS: Gemfibrozil 600 MG Tablet PO (18:35)
[2022-10-04] MEDS: Amitriptyline 25 MG Tablet PO (21:07)
[2022-10-04] MEDS: 0.9% Saline Lock 10 ML Syringe IV (21:07)
[2022-10-05] VITALS (9 sets, daily range): BP systolic 111–125; BP diastolic 70–85; PULSE 61–91; RESP 16; TEMP 36.4–36.7; O2SAT 93–98
[2022-10-05 05:12] LABS: Absolute Lymphocyte Count 3.45 X10^3/uL (0.83-4.51); Absolute Neutrophil Count 2.9 X10^3/uL (2.0-7.7); Basophil# 0.03 X10^3/uL; Basophil% 0.4 % (0-1); Eosinophil# 0.08 X10^3/uL; Eosinophils% 1.1 % (0-5); Hematocrit 46.4 % (40-54); Hemoglobin 15.8 g/dL (13.0-16.5); Lymphocyte # 3.45 X10^3/ul (0.83-4.51); Lymphocyte % 48.5 % (19-41); Mean Corp Hgb Conc 34.1 g/dL (32-36); Mean Corpuscular Hgb 30.7 pg (27.0-32.0); Mean Corpuscular Volume 90.1 fL (80-94); Mean Platelet Vol. 9.9 fl (6.2-12.0); Monocyte# 0.65 X10^3/uL; Monocyte% 9.1 % (0-10); NRBC Flagged by Analyzer 0 % (0-5); Neutrophil # 2.87 X10^3/uL (2.7-7.7); Neutrophil % 40.5 % (47-70); Platelet Count 273 K/mm3 (150-450); RBC Distribution Width CV 11.7 % (11.6-14.6); RBC Distribution Width SD 38.7 fl (35.1-43.9); Red Blood Count 5.15 M/mm3 (4.6-6.2); White Blood Count 7.1 K/mm3 (4.4-11.0)
[2022-10-05 05:37] LABS: Anion Gap 5 (5-15); BUN 13 mg/dL (7-18); BUN/Creat Ratio 12.7 RATIO (10-20); Calcium,Total 9.1 mg/dL (8.5-10.1); Chloride 109 mmol/L (98-107); Cholesterol 177 mg/dL (200); Creatinine, Serum 1.02 mg/dL (0.70-1.30); EST Glomerular Filtration Rate 80 mL/min (>60); Est Glom Filt Rate - Afr Amer 97 mL/min (>60); Estimated Creatinine Clearance 92.48 ml/min; Glucose 101 mg/dL (74-106); High Density Lipoprotein 42 mg/dL; Magnesium 2.6 mg/dL (1.6-2.6); Potassium 4.3 mmol/L (3.5-5.1); Sodium Level 139 mmol/L (136-145); Triglycerides 274 mg/dL; Very Low Density Lipoprotein 55 mg/dL (5-40)
--- NOTE | 2022-10-05 05:55 | EKG12_ITS ---
Test Reason : AM EKG Blood Pressure : / mmHG Vent. Rate : 075 BPM Atrial Rate : 075 BPM P-R Int : 174 ms QRS Dur : 110 ms QT Int : 392 ms P-R-T Axes : 058 071 057 degrees QTc Int : 437 ms Normal sinus rhythm Incomplete right bundle branch block Confirmed by EZEQUIEL HEART, ERNESTINE ([id number]), news videotape editor OFELIA BARRIENTOS ([id number]) on 10/05/2022 11:14:53 AM Referred By: Confirmed By:ERNESTINE NIEVES MD
[2022-10-05] MEDS: Aspirin E.C. 81 MG Tablet PO (05:59)
--- NOTE | 2022-10-05 08:35 | PN.CARD_ITS ---
Subjective Subjective The patient is awake and alert. He denies any ongoing concerns of chest discomfort, difficulty breathing, or palpitations. He states he slept well last night and has been resting comfortably. Objective Data Vital Signs: Vital Signs Temp Pulse Resp BP Pulse Ox O2 Del Method 97.7 F L 90 16 111/76 93 Room Air 10/05/22 05:56 10/05/22 07:00 10/05/22 05:56 10/05/22 05:56 10/05/22 05:56 10/05/22 05:56 Oxygen Delivery Method Room Air Weight: 236 lb Body Mass Index (BMI) 31.1 Lab / Micro Data Result Diagrams: 10/05/22 05:04 10/05/22 05:04 Labs: Laboratory Results - last 24 hr 10/04/22 10:45: TSH 1.62, Free T4 1.25 10/04/22 10:45: WBC 7.5, RBC 5.16, Hgb 16.0, Hct 44.8, MCV 86.8, MCH 31.0, MCHC 35.7, RDW Std Deviation 37.2, RDW Coeff of Reji 11.6, Plt Count 257, MPV 9.8 10/04/22 10:45: Sodium 141, Potassium 4.2, Chloride 112 H, Carbon Dioxide 24.0, Anion Gap 5, BUN 13, Creatinine 0.92, Estim Creat Clear Calc 102.53, Est GFR (MDRD) Af Amer 109, Est GFR (MDRD) Non-Af 90, BUN/Creatinine Ratio 14.1, Glucose 109 H, Calcium 9.1, Magnesium 2.5 10/04/22 10:45: Troponin I High Sens 109 H 10/04/22 12:45: Troponin I High Sens 107 H 10/04/22 16:17: Troponin I High Sens 87 H 10/05/22 05:04: WBC 7.1, RBC 5.15, Hgb 15.8, Hct 46.4, MCV 90.1, MCH 30.7, MCHC 34.1, RDW Std Deviation 38.7, RDW Coeff of Reji 11.7, Plt Count 273, MPV 9.9, Immature Gran % (Auto) 0.400, Neut % (Auto) 40.5 L, Lymph % (Auto) 48.5 H, [place] % (Auto) 9.1, Eos % (Auto) 1.1, Baso % (Auto) 0.4, Absolute Neuts (auto) 2.9, Absolute Lymphs (auto) 3.45, Nucleated RBC % 0 10/05/22 05:04: Sodium 139, Potassium 4.3, Chloride 109 H, Carbon Dioxide 25.0, Anion Gap 5, BUN 13, Creatinine 1.02, Estim Creat Clear Calc 92.48, Est GFR (MDRD) Af Amer 97, Est GFR (MDRD) Non-Af 80, BUN/Creatinine Ratio 12.7, Glucose 101, Calcium 9.1, Magnesium 2.6, Triglycerides 274 H, Cholesterol 177, LDL C holesterol 80, VLDL Cholesterol 55 H, HDL Cholesterol 42 Cardiology Labs/Tests 10/04/22 10:45: WBC 7.5, RBC 5.16, Hgb 16.0, Hct 44.8, MCV 86.8, MCH 31.0, MCHC 35.7, Plt Count 257, MPV 9.8 10/04/22 10:45: Sodium 141, Potassium 4.2, Chloride 112 H, Carbon Dioxide 24.0, Anion Gap 5, BUN 13, Creatinine 0.92, Est GFR (MDRD) Af Amer 109, Est GFR (MDRD) Non-Af 90, BUN/Creatinine Ratio 14.1, Glucose 109 H, Calcium 9.1, Magnesium 2.5 10/05/22 05:04: WBC 7.1, RBC 5.15, Hgb 15.8, Hct 46.4, MCV 90.1, MCH 30.7, MCHC 34.1, Plt Count 273, MPV 9.9, Immature Gran % (Auto) 0.400, Neut % (Auto) 40.5 L , Lymph % (Auto) 48.5 H, [place] % (Auto) 9.1, Eos % (Auto) 1.1, Baso % (Auto) 0.4, Absolute Neuts (auto) 2.9, Nucleated RBC % 0 10/05/22 05:04: Sodium 139, Potassium 4.3, Chloride 109 H, Carbon Dioxide 25.0, Anion Gap 5, BUN 13, Creatinine 1.02, Est GFR (MDRD) Af Amer 97, Est GFR (MDRD) Non-Af 80, BUN/Creatinine Ratio 12.7, Glucose 101, Calcium 9.1, Magnesium 2.6, Triglycerides 274 H, Cholesterol 177, LDL Cholesterol 80, VLDL Cholesterol 55 H, HDL Cholesterol 42 Rhythm: Sinus rhythm EKG: Sinus rhythm; no acute ECG changes Radiography Diagnostic Testing: Radiology Impression Echocardiogram 10/04/22 10:38 Interpretation Summary The study was technically difficult. Left ventricular systolic function is normal. The estimated ejection fraction is 60 %. Apical false tendon noted. Trivial mitral valve insufficiency. Trivial tricuspid valve insufficiency. Mild focal aortic valve calcification. Unable to estimate RV systolic pressure/pulmonary artery pressure due to technically difficult study. No evidence for diastolic dysfunction. Ordering Physician: Jolynn Fu Referring Physician: Nnamdi Garcia Performed By: Jesenia Márquez RCS Physical Exam Const alert, oriented x3, no apparent distress and healthy appearing Orientation / Consciousness: awake HEENT normocephalic, head/scalp atraumatic and hearing grossly normal bilaterally Eyes PERRL, EOMs intact bilaterally, conjunctivae normal and no scleral icterus Neck full ROM, supple and no JVD Carotids: normal carotid upstroke Chest inspection of chest normal Resp normal respiratory effort and clear to auscultation bilaterally Cardio regular rate, regular rhythm, S1 normal heart sound and S2 normal heart sound GI normal to inspection, nondistended, normoactive bowel sounds Extremity full ROM and no pedal edema Skin no rashes or lesions noted Psych mental status grossly normal Assessment & Plan Assessment/Plan (1) SVT (supraventricular tachycardia): PLAN: The patient appears to demonstrate evidence compatible with an SVT. 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 It is unclear whether this is been triggered by his recent respiratory illness and use of [id number] decongestants. At the present time he is currently in sinus rhythm. His follow-up ECG is demonstrated no acute changes. He has been started on beta-shon therapy without any obvious adverse event. He is continuing his noninvasive evaluation at this time. Over time he will be considered for EP consultation for EPS/RFA. (2) Abnormal cardiac enzyme level: PLAN: The patient does have abnormal cardiac enzyme levels. His initial 2 troponin I levels were without significant change. His third level has declined. These enzyme levels may be secondary to his SVT and subsequently be a type II non-ST segment elevation [place] related event secondary to supply demand mismatch. He will continue his noninvasive evaluation at this time. Depending upon the findings he may or may not need further invasive evaluation with respect to his coronary anatomy. (3) Coronary artery calcification: PLAN: The patient has a previous abnormal coronary calcium score performed at an outside hospital stating his LAD calcium score was 1.89. The remainder of his vessels had a calcium score of 0. According to that report his annual risk was 0.4%. He has continued risk factor evaluation and care. He will undergo evaluation and care as noted above. (4) Pure hypercholesterolemia: PLAN: He does have a history of hyperlipidemia. 3 His lipid labs were reviewed. His total cholesterol was 177 with an LDL of 80 and an HDL of 42. His triglycerides were 274 (of note they have been higher in the past). At the present time he will continue dietary therapy, exercise, and medical therapy. (5) Borderline systolic HTN: PLAN: There has been a concern of hypertension. He will continue antihypertensive therapy with adjustment as deemed appropriate. Addt'l Comments The patient's case has been discussed and reviewed with the patient with his spouse present. This note was generated using a voice recognition system and there may be incorrect words, spelling or punctuation that were not noted when reviewing the office note prior to saving. Procedure Criteria Type of Procedure Procedure Type: Elective Elective Risks - COVID COVID Risk Discussion: The surgeon/proceduralist and patient have discussed in detail the risk of exposure to and/or potential harm posed by the COVID-19 virus with having a surgery/procedure at this time versus the risk of delaying the surgery/procedure. It is not possible to know either the risk of delaying the surgery or procedure or chance of getting an infection with perfect accuracy, but a joint decision was made between the patient and the surgeon/proceduralist to proceed at this time with the scheduled surgery/procedure as indicated on the consent form.
--- NOTE | 2022-10-05 10:26 | STRESSREP_ITS ---
Stress Test Report Date: 10-05-2022 Procedure: Exercise tolerance test/imaging study Indications: Chest discomfort; SVT; abnormal cardiac enzymes Consent: Per the patient Procedure: The patient exercised on a Gian protocol for 8 minutes completing Stage II and 2 minutes of Stage III achieving a peak heart rate of 150 bpm (90% predicted maximal heart rate) with resting blood pressure of 122/84 mmHg and a peak blood pressure 178/72 mmHg and a peak MET capacity of 9 METs. The baseline ECG demonstrated normal sinus rhythm; incomplete right bundle branch block. The peak exercise ECG demonstrated no obvious ECG changes. There were no cardiac dysrhythmias pretest, during exercise, or recovery. The functional capacity was considered good. There was mild chest discomfort at peak exercise. The examination was discontinued secondary to mild chest discomfort and dyspnea. Impression: 1. Technically adequate (percent predicted maximal heart rate greater than 85%) exercise tolerance test 2. Peak exercise ECG with no obvious ECG change 3. There were no cardiac dysrhythmias pretest, during exercise, or recovery 4. Nuclear images pending Myocardial perfusion imaging study: Technique: The patient was injected with 14.9 mCi of technetium 99m Cardiolite and subsequently rest SPECT Cardiolite nuclear imaging was obtained in the horizont al long, vertical long, and short axis views. The patient exercised on a Gian protocol for 8 minutes completing Stage II and 2 minutes of Stage III achieving a peak heart rate of 150 bpm (90% predicted maximal heart rate) with resting blood pressure of 122/84 mmHg and a peak blood pressure 178/72 mmHg and a peak MET capacity of 9 METs. The patient was injected with 44.8 mCi of technetium 99m Cardiolite and subsequently stress SPECT Cardiolite nuclear imaging was obtained in the horizontal long, vertical long, and short axis views. A gated Cardiolite study at peak stress was obtained. Interpretation: Rest and stress SPECT Cardiolite nuclear imaging status post realignment, normalization, and attenuation correction, demonstrates a small area of subtle diminished tracer uptake near the apical segments without significant change between rest and stress. There is end systolic thickening and brightening. The gated Cardiolite study demonstrates myocardial thickening and inward wall thelma on. The reported LVEF is 66%. Impression: 1. Rest and stress SPECT Cardiolite nuclear imaging demonstrate a small area of subtle diminished tracer uptake near the apical segments without significant change between rest and stress appearing compatible with physiologic apical thinning with no myocardial perfusion changes considered diagnostic for associated stress-induced myocardial ischemia. 2. The gated Cardiolite study reports an LVEF of 66%. This note was generated with [employer] software. It may contain incorrect words, spelling, and punctuation that were not noted in checking the note before signing.
[2022-10-05] MEDS: Gemfibrozil 600 MG Tablet PO (11:04)
[2022-10-05] MEDS: Enoxaparin 40 MG/0.4 ML Syringe SC (11:04)
[2022-10-05] MEDS: Magnesium Chloride 64 MG Delay Rel.Tablet 128 MG PO (11:05)
[2022-10-05] MEDS: Cholecalciferol (Vit D3) 125 MCG CAPSULE (5,000 UNITS) PO (11:05)
[2022-10-05] MEDS: Ascorbic Acid 500 MG Tablet PO (11:05)
[2022-10-05] MEDS: amLODIPine 5 MG Tablet PO (11:05)
[2022-10-05] MEDS: Multivitamins,Therapeutic Tablet 1 TABLET PO (11:05)
[2022-10-05] MEDS: Metoprolol Tartrate 50 MG Tablet PO (11:05)
[2022-10-05] MEDS: Loratadine 10 MG Tablet PO (11:05)
--- NOTE | 2022-10-05 11:17 | DS.PCM_ITS ---
Providers Date of Admission: 10/04/22 Date of Discharge: 10/05/22 Primary Care Physician: Dr. Nnamdi Garcia MD Consultations 10/04/22 10:35 Consult: Cardiology Routine Consulting Provider: Nnamdi Maya Reason for Consult: SVT EMERGENT Consult: No MD Notified: Yes Date Notified: 10/04/22 Time Notified: 10:38 Method of Notification: Text Reason For Visit: SVT Diagnosis Discharge Diagnosis (1) SVT (supraventricular tachycardia): Status: Acute Code(s): I47.1 - Supraventricular tachycardia (2) Abnormal cardiac enzyme level: Status: Acute Code(s): R74.8 - Abnormal levels of other serum enzymes (3) Coronary artery calcification: Status: Acute Code(s): I25.10 - Atherosclerotic heart disease of [place] coronary artery without angina pectoris; I25.84 - Coronary atherosclerosis due to calcified coronary lesion (4) Pure hypercholesterolemia: Status: Chronic Code(s): E78.00 - Pure hypercholesterolemia, unspecified (5) Borderline systolic HTN: Status: Acute Code(s): R03.0 - Elevated blood-pressure reading, without diagnosis of hypertension Plan #SVT * Was in normal sinus rhythm at time of review. He had been weaned off of Cardizem drip after he arrived at [facility]. * CBC and BMP showed no abnormalities. * TSH was 1.62 and free T4 was 1.25. Initial troponin was 109 and trended down slightly to 107. This may be due to troponin leak from SVT. * Cardiology consulted. Will benefit from p.o. Cardizem or beta-shon. Will defer to cardiology. * 2D echo ordered. * Potassium and magnesium within normal limits. * #Hyperlipidemia: On statin and evolocumab injection #Hypertension: On amlodipine History of eczema: On dupilumab subcu injection every 2 weekly. #History of anxiety: On amitriptyline DVT prophylaxis: Lovenox CODE STATUS: Full code * Patient and counseled extensively about different types of CODE STATUS including full code, DNR CCA and DNR CCA. Patient elects to be full code. * Total [id number] time 17 minutes. Medications at Discharge Home Medications loratadine 10 mg tablet 10 mg PO DAILY Allergies 03/20/18 multivitamin 1 ea PO DAILY Supplement 03/20/18 amitriptyline 25 mg tablet 25 mg PO QHS 07/09/20 ascorbic acid (vitamin C) 500 mg tablet 500 mg PO DAILY 07/09/20 aspirin 81 mg tablet,delayed release (Adult Low Dose Aspirin) 81 mg PO DAILY 07/09/20 cholecalciferol (vitamin D3) 125 mcg (5,000 unit) capsule 125 mcg PO DAILY 07/09/20 magnesium 250 mg tablet 250 mg PO DAILY Supplement 07/09/20 dupilumab 300 mg/2 mL subcutaneous pen injector (Dupixent) 300 mg subcut Q2W eczema 09/06/21 vitamin K2 100 mcg capsule 100 mcg PO DAILY Supplement 03/08/22 amlodipine 5 mg tablet 5 mg PO DAILY 10/04/22 evolocumab 140 mg/mL subcutaneous pen injector (Repatha SureClick) 140 mg subcut Q2W Cholestrol 10/04/22 gemfibrozil 600 mg tablet 600 mg PO BID triglycerides 10/04/22 pitavastatin calcium 4 mg tablet (Livalo) 4 mg PO DAILY Cholestrol 10/04/22 metoprolol tartrate 50 mg tablet 50 mg PO BID #60 tabs 10/05/22 Hospital Course Operations None Procedures 2-D Echocardiogram and Stress test Summary of Care Provided Minutes Spent on Discharge: 45 Hospital Course: ROCKY COOLEY, is a 56 M with a past medical history as outlined who presents as a transfer from outside hospital ED where he presented with a complaint of palpitations.? Patient started having palpitations on the day of admission he said it woke him up from sleep.? Palpitations did not seem to improve.? He denied any associated chest pain or chest pressure, any shortness of breath, nausea or vomiting, dizziness or lightheadedness.? He had not had palpitations like this in the past.? Review of symptoms otherwise negative.? When he arrived other outside hospital he was found to be in SVT and required several doses of adenosine.? However SVT persisted so he was started on Cardizem drip and transferred to [facility]. On arrival at [facility], I reviewed patient.? His was at his bedside.? Palpitations had resolved and he said he had been taken off of the Cardizem drip after he arrived at the hospital.? He denied any chest pain, palpitations, dizziness, nausea, vomiting or diarrhea.? Review of symptoms other alvarez negative.? CBC and BMP didnt show any abnormalities. He was admitted and managed for SVT. Cardiology was consulted. He was started on metoprolol. He had a 2D echo which showed EF of 60%, with normal LVSF and no diastolic dysfunction and false apical tendon. He had a stress test on 10/05/2022 which showed no evidence of ischemia. He remained stable and was discharged home on 10/05/2022 on PO metoprolol. He is to follow up with cardiology for outpatient referral to [facility] electrophysiology for ablation. Patient seen and examined prior to discharge. He had no active complaints and had an uneventful night. Review of systems is otherwise negative. Labs and vitals reviewed, home meds reviewed and reconciled. Of note, thyroid function tests were WNL. Patient improved much more quickly than expected and was discharged home on 10/05/2022. Physical Exam Const alert, oriented x3 and no apparent distress General Appearance: cooperative and comfortable Orientation / Consciousness: awake Exam Limitations: no limitations HEENT normocephalic, head/scalp atraumatic, hearing grossly normal bilaterally and moist oral mucous membranes Eyes PERRL, EOMs intact bilaterally and conjunctivae normal Neck no lymphadenopathy, supple and no JVD Resp normal respiratory effort, no retractions, no use of accessory muscles and clear to auscultation bilaterally Cardio regular rate, regular rhythm, S1 normal heart sound, S2 normal heart sound and no murmurs GI normal to inspection, nondistended, normoactive bowel sounds, soft to palpation, non-tender and non-distended Extremity normal to inspection, full ROM and no clubbing, cyanosis or edema Neuro oriented x3, CN's II-XII intact bilaterally and moves all extremities Sensorium / Orientation: awake and alert Motor Exam: strength 5/5 throughout Psych affect normal Weight / BMI Weight Weight: 236 lb Body Mass Index (BMI) 31.1 ABG / Lab / Microbiology Data Result Diagrams: 10/05/22 05:04 10/05/22 05:04 Laboratory: Laboratory Results - last 24 hr 10/04/22 10:45: TSH 1.62, Free T4 1.25 10/04/22 10:45: Sodium 141, Potassium 4.2, Chloride 112 H, Carbon Dioxide 24.0, Anion Gap 5, BUN 13, Creatinine 0.92, Estim Creat Clear Calc 102.53, Est GFR (MDRD) Af Amer 109, Est GFR (MDRD) Non-Af 90, BUN/Creatinine Ratio 14.1, Glucose 109 H, Calcium 9.1, Magnesium 2.5 10/04/22 10:45: Troponin I High Sens 109 H 10/04/22 12:45: Troponin I High Sens 107 H 10/04/22 16:17: Troponin I High Sens 87 H 10/05/22 05:04: WBC 7.1, RBC 5.15, Hgb 15.8, Hct 46.4, MCV 90.1, MCH 30.7, MCHC 34.1, RDW Std Deviation 38.7, RDW Coeff of Reji 11.7, Plt Count 273, MPV 9.9, Immature Gran % (Auto) 0.400, Neut % (Auto) 40.5 L, Lymph % (Auto) 48.5 H, [place] % (Auto) 9.1, Eos % (Auto) 1.1, Baso % (Auto) 0.4, Absolute Neuts (auto) 2.9, Absolute Lymphs (auto) 3.45, Nucleated RBC % 0 10/05/22 05:04: Sodium 139, Potassium 4.3, Chloride 109 H, Carbon Dioxide 25.0, Anion Gap 5, BUN 13, Creatinine 1.02, Estim Creat Clear Calc 92.48, Est GFR (MDRD) Af Amer 97, Est GFR (MDRD) Non-Af 80, BUN/Creatinine Ratio 12.7, Glucose 101, Calcium 9.1, Magnesium 2.6, Triglycerides 274 H, Cholesterol 177, LDL Cholesterol 80, VLDL Cholesterol 55 H, HDL Cholesterol 42 Radiography Diagnostic Testing: Radiology Impression Echocardiogram 10/04/22 10:38 Interpretation Summary The study was technically difficult. Left ventricular systolic function is normal. The estimated ejection fraction is 60 %. Apical false tendon noted. Trivial mitral valve insufficiency. Trivial tricuspid valve insufficiency. Mild focal aortic valve calcification. Unable to estimate RV systolic pressure/pulmonary artery pressure due to technically difficult study. No evidence for diastolic dysfunction. Ordering Physician: Joylnn Fu Referring Physician: Nnamdi Garcia Performed By: Jesenia Márquez RCS D/C Instructions Discharge Diet: Low fat / Low cholesterol Discharge Activity: Return to Normal Activity Weight Bearing Status: Weight bearing as tolerated Call your doctor if you observe: Fever of 101 or Higher, Shortness of breath, Dizziness, Swelling in the ankles, Chest pain and Increased palpitations (irregular heartbeat) Meaningful Use Info Meaningful Use Diagnoses (Choose all that apply): None applicable Discharge Plan Admission Admit Date/Time: 10/04/22 11:45 Primary Reason for Your Visit: SVT Attending Provider: Jolynn Fu Primary Care Provider: Nnamdi Garcia Consulting Providers: Nnamdi Maya Instructions Patient Instructions: Supraventricular Tachycardia Discharge Orders/Prescriptions Prescriptions: New metoprolol tartrate 50 mg Tablet 50 mg PO BID Qty: 60 2RF Continued aspirin [Adult Low Dose Aspirin] 81 mg tablet,delayed release (DR/EC) 81 mg PO DAILY ascorbic acid (vitamin C) 500 mg tablet 500 mg PO DAILY magnesium 250 mg tablet 250 mg PO DAILY cholecalciferol (vitamin D3) 125 mcg (5,000 unit) capsule 125 mcg PO DAILY amitriptyline 25 mg tablet 25 mg PO QHS Dupixent Pen 300 mg/2 mL pen injector 300 mg subcut Q2W vitamin K2 100 mcg capsule 100 mcg PO DAILY multivitamin 1 EACH tablet 1 ea PO DAILY loratadine 10 MG tablet 10 mg PO DAILY amlodipine 5 mg tablet 5 mg PO DAILY Label Comments: TAKE 1 TABLET BY MOUTH EVERY DAY gemfibrozil 600 mg tablet 600 mg PO BID Livalo 4 mg tablet 4 mg PO DAILY Repatha SureClick 140 mg/mL pen injector 140 mg subcut Q2W Referrals / Follow Up: Nnamdi Maya MD [Med Staff - Active Staff] - Within 2 Weeks Nnamdi Garcia MD [Primary Care Provider] - Within 2 Weeks Disposition Disposition (needs filled in before D/C Order can be placed): Home, Self Care Charges/Coding Visit Charges Inpatient E&M: 00922 Disch Hosp
--- NOTE | 2022-10-05 11:41 | CASEMGMT ---
RN?CM?RN PRIMARY CARE?CM?to room to meet with patient for initial transition planning/care coordination?assessment.?RN?CM?introduced self and role at [facility].? Pt voices understanding and consents to?assessment?at this time.? Pt resting in bed in no distress at this time.? @ bedside. Pt is A/O at this time and answers all questions appropriately.?? Care providers, pharmacy, and demographics verified/updated at this time. PCP: Dr Garcia Specialists:Dr Maya-cardiology, Dr Rojas-dermatology, Dr Mora-pulmonology for [place] Preferred Pharmacy:[facility] Insurance: MMO til end of year. Then switching to different insurance. Prescription Benefit:?Yes Living Will/HPOA:?Has LW and HCPOA, who is his , Zenaida LNOK: , Zenaida Living Arrangements: Lives w/ in split-level home w/one step to enter. Independent. Transportation:?Pt states drives self and states no transportation concerns at this time.? also drives. DME: ?CPAP HHC/SNF: No hx of either. No needs identified. Pt wishes to return home and states has no concerns with going home at time of discharge.? Pt and voice no concerns/needs at this time.? PLAN:??[employer] BSN?RN?CM
== END 2022-10-05 12:48 | disposition home or self-care (01) | DRG 310 ==
PROVIDERS: Admitting Provider Student in an Organized Health Care Education/Training Program; PCP Family Medicine; Visit Provider Student in an Organized Health Care Education/Training Program
DX: I47.1 Supraventricular tachycardia (principal); E78.00 Pure hypercholesterolemia, unspecified; I10 Essential (primary) hypertension; I25.10 Atherosclerotic heart disease of native coronary artery without angina pectoris; L30.9 Dermatitis, unspecified; G47.33 Obstructive sleep apnea (adult) (pediatric); K21.9 Gastro-esophageal reflux disease without esophagitis; F41.9 Anxiety disorder, unspecified; R77.8 Other specified abnormalities of plasma proteins; Z79.82 Long term (current) use of aspirin; Z79.899 Other long term (current) drug therapy; Z87.891 Personal history of nicotine dependence
CPT/HCPCS: 36415; 78452; 80048; 80061; 83735; 84439; 84443; 84484; 85025; 85027; 93005; 93017; 93306; A9500; A4216

== ENCOUNTER 2022-10-15 08:46 | Emergency (ER) | payer OTHER, SELFPAY ==
[2022-10-15] VITALS (14 sets, daily range): BP systolic 113–149; BP diastolic 69–116; PULSE 80–172; RESP 10–18; TEMP 36.1; O2SAT 94–99; BMI 31.5
[2022-10-15] MEDS: Adenosine 6 MG/2 ML Syringe IV (09:03)
[2022-10-15] MEDS: Adenosine 6 MG/2 ML Syringe 12 MG IV (09:08)
[2022-10-15 09:42] LABS: Prothrombin Time (Protime)PT. 12.7 SECONDS (11.7-14.9)
[2022-10-15 09:43] LABS: Absolute Lymphocyte Count 3.66 X10^3/uL (0.83-4.51); Absolute Neutrophil Count 4.7 X10^3/uL (2.0-7.7); Basophil# 0.04 X10^3/uL; Basophil% 0.4 % (0-1); Eosinophil# 0.05 X10^3/uL; Eosinophils% 0.5 % (0-5); Hematocrit 49.2 % (40-54); Hemoglobin 16.2 g/dL (13.0-16.5); Lymphocyte # 3.66 X10^3/ul (0.83-4.51); Lymphocyte % 39.2 % (19-41); Mean Corp Hgb Conc 32.9 g/dL (32-36); Mean Corpuscular Hgb 29.9 pg (27.0-32.0); Mean Corpuscular Volume 90.8 fL (80-94); Mean Platelet Vol. 10.8 fl (6.2-12.0); Monocyte# 0.86 X10^3/uL; Monocyte% 9.2 % (0-10); NRBC Flagged by Analyzer 0 % (0-5); Neutrophil # 4.69 X10^3/uL (2.7-7.7); Neutrophil % 50.4 % (47-70); Partial Thromboplast Time 31.7 Seconds (24.1-36.2); Platelet Count 337 K/mm3 (150-450); RBC Distribution Width CV 12.1 % (11.6-14.6); RBC Distribution Width SD 39.8 fl (35.1-43.9); Red Blood Count 5.42 M/mm3 (4.6-6.2); White Blood Count 9.3 K/mm3 (4.4-11.0)
[2022-10-15 09:45] LABS: Anion Gap 6 (5-15); BUN 14 mg/dL (7-18); BUN/Creat Ratio 13.1 RATIO (10-20); Chloride 111 mmol/L (98-107); Creatinine, Serum 1.07 mg/dL (0.70-1.30); EST Glomerular Filtration Rate 76 mL/min (>60); Est Glom Filt Rate - Afr Amer 92 mL/min (>60); Estimated Creatinine Clearance 88.16 ml/min; Glucose 120 mg/dL (74-106); Potassium 4.2 mmol/L (3.5-5.1); Sodium Level 142 mmol/L (136-145)
--- NOTE | 2022-10-15 09:50 | EX.ED.DYSGE1 ---
HPI History of Present Illness Chief Complaint: Palpitations Informant: patient and spouse/S.O. Narrative Narrative: Presents for recurrent SVT symptoms. Initial symptoms 11 days ago was admitted to the hospital here. He was initially seen at [facility] and then he states adenosine did not work he was placed on a Cardizem drip. He was transported over here for admission. Parent had a troponin leak. Stress test and echocardiogram negative he was sent home on metoprolol 50 mg twice daily. He has been compliant with it. He had flulike symptoms early September and then use Afrin that may have stimulated the symptoms. History of hypertension. He states earlier this morning recurrent symptoms he went back to [facility]. They did adenosine twice put on a Cardizem drip, he converted. There was discussion with cardiology over here, they gave him Cardizem 120 decrease his metoprolol to 25 mg. As soon as he returned home recurrent symptoms with lightheaded symptoms. No recent vomiting or diarrhea. He was scheduled to see electrophysiology down to [facility] this coming November with (Thuan). Reviewing records negative echo and negative stress test from 11 days ago. Prior similar symptoms: Yes PFSH [facility] Medical History Anxiety Borderline systolic HTN Coronary artery calcification Epigastric pain Gastric mass GERD (gastroesophageal reflux disease) Pure hypercholesterolemia Sleep apnea SVT (supraventricular tachycardia) Home Medications loratadine 10 mg tablet 10 mg PO DAILY Allergies 03/20/18 [History Last Taken 10/14/22] multivitamin 1 ea PO DAILY Supplement 03/20/18 [History Last Taken 10/14/22] amitriptyline 25 mg tablet 25 mg PO QHS 07/09/20 [History Last Taken 10/14/22] ascorbic acid (vitamin C) 500 mg tablet 500 mg PO DAILY 07/09/20 [History Last Taken 10/14/22] aspirin 81 mg tablet,delayed release (Adult Low Dose Aspirin) 81 mg PO DAILY 07/09/20 [History Last Taken Unknown] cholecalciferol (vitamin D3) 125 mcg (5,000 unit) capsule 125 mcg PO DAILY 07/09/20 [History Last Taken 10/14/22] magnesium 250 mg tablet 250 mg PO DAILY Supplement 07/09/20 [History Last Taken 10/14/22] dupilumab 300 mg/2 mL subcutaneous pen injector (Dupixent) 300 mg subcut Q2W eczema 09/06/21 [History Last Taken 10/11/22] vitamin K2 100 mcg capsule 100 mcg PO DAILY Supplement 03/08/22 [History Last Taken 10/14/22] amlodipine 5 mg tablet 5 mg PO DAILY 10/04/22 [History Last Taken 10/14/22] evolocumab 140 mg/mL subcutaneous pen injector (Repphillip Caceresick) 140 mg subcut Q2W Cholestrol 10/04/22 [History Last Taken 10/08/22] gemfibrozil 600 mg tablet 600 mg PO BID triglycerides 10/04/22 [History Last Taken 10/14/22] pitavastatin calcium 4 mg tablet (Livalo) 4 mg PO DAILY Cholestrol 10/04/22 [History Last Taken 10/14/22] metoprolol tartrate 50 mg tablet 50 mg PO BID #60 tabs 10/05/22 [Rx Last Taken 10/14/22] Allergy/AdvReac Type Severity Reaction Status Date / Time latex Allergy Itching Verified 03/08/22 09:03 atorvastatin AdvReac Severe Myalgias Verified 03/08/22 09:03 simvastatin AdvReac Severe myalgias Verified 03/08/22 09:03 lisinopril AdvReac Intermediate cough Verified 03/08/22 09:03 Family History Father Heart disease Myocardial infarction Cancer pancreas Mother Diabetes Cardiac pacemaker in situ Heart valve disorder Surgical History History of arthroscopy of left knee History of colonoscopy (~2017) History of vasectomy Social History Smoking Status: Former smoker how long ago did patient quit smokin alcohol intake: current alcohol intake frequency: a few times a week substance use type: does not use caffeine: Yes Type: coffee Number of servings: 3 ROS ROS ED Constitutional Constitutional ED: Denies chills, fever(s) or sweats Eyes Eyes: Denies change in vision ENT ENT ED: Denies dysphagia or sore throat Cardiovascular Cardiovascular: Reports palpitations and racing heartbeat; Denies chest pain or leg edema Respiratory/Chest Respiratory/Chest: Denies cough, dyspnea or dyspnea on exertion Gastrointestinal Gastrointestinal: Denies abdominal pain, diarrhea, nausea or vomiting Genitourinary Genitourinary ED: Denies dysuria, hematuria or urinary frequency Musculoskeletal Musculoskeletal: Denies back pain, extremity pain or neck pain Integumentary Denies rash or wounds Neurologic Neurologic: Denies headache(s), paresthesias or weakness EXAM Physical Exam Const Vital Signs: 10/15/22 08:46 10/15/22 08:46 10/15/22 09:09 Temperature 96.9 F L Temperature Source Temporal Pulse Rate 99 156 H Respiratory Rate 18 18 Respiratory Pattern Blood Pressure 120/98 H 146/116 H Blood Pressure Mean 105 126 Pulse Ox 99 98 Oxygen Delivery Method Room Air Room Air 10/15/22 09:28 10/15/22 09:39 10/15/22 09:39 Temperature Temperature Source Pulse Rate 164 H 129 H Respiratory Rate 18 18 Respiratory Pattern Normal Blood Pressure 126/92 H 126/92 H Blood Pressure Mean 103 103 Pulse Ox 96 97 Oxygen Delivery Method Room Air 10/15/22 09:59 10/15/22 10:05 10/15/22 10:44 Temperature Temperature Source Pulse Rate 86 172 H 82 Respiratory Rate 18 18 18 Respiratory Pattern Blood Pressure 133/69 H 119/81 H 113/81 H Blood Pressure Mean 90 93 91 Pulse Ox 96 97 96 Oxygen Delivery Method Room Air Room Air 10/15/22 11:27 10/15/22 13:33 Temperature Temperature Source Pulse Rate 84 80 Respiratory Rate 18 14 Respiratory Pattern Blood Pressure 133/78 H 115/75 Blood Pressure Mean 96 88 Pulse Ox 98 94 Oxygen Delivery Method Room Air Room Air Positive well nourished and well developed General Appearance ED: well developed and NAD HEENT Reports moist mucous membranes normocephalic and atraumatic Eyes PERRL, EOMs intact bilaterally and conjunctivae normal General Eye ED: Yes normal appearance of both eyes Neck no lymphadenopathy and supple General: Negative for tenderness Chest Wall Chest: Negative for tenderness Resp normal respiratory effort and normal air movement Effort and Inspection: symmetric chest movement; Negative for respiratory distress Cardio regular rhythm and no murmurs Rate: tachycardic Peripheral Pulses: pulses 2+ throughout GI normal to inspection, nondistended, normoactive bowel sounds and non-tender Palpation: Negative for guarding or rebound tenderness present Back/Spine no CVA tenderness and no thoracic nor lumbar tenderness Extremity normal to inspection General Extremety ED: Negative for edema or tenderness General Extremity: Negative for edema Neuro oriented x3 and no sensory deficits noted Sensorium / Orientation: awake and alert Skin no rashes or lesions noted and no wounds MDM MDM MDM Narrative Medical decision making narrative: Patient concerned for SVT blood pressure stable attempted Valsalva maneuvers bedside transient improvement went down to 120s however would recur. Adenosine tried twice with 6 mg and 12 mg noting again transient improvement lasting a few seconds with the 12 mg. He is started on a Cardizem drip with improvement however had intermittent runs of SVT. Labs are stable. I discussed with hvac installation technician Dr. Ramos who discussed with the outside facility with treatment plan. At this time with no EP coverage here recommended transferring to [facility] for electrophysiology evaluation for further management. Discussed with patient and spouse who understands. 1215: Sinus rhythm on the monitor rate in the 80s on Cardizem 10 mg/h. Intermittent runs of SVT up to the 130s. Blood pressure sonam stable. I spoke with [facility] transfer line. Awaiting discussion with [facility] hospital team. 1353: Patient accepted to [facility] under hospitalist service Lab Data Attestation: I reviewed the patient's lab results. Labs: Laboratory Results - last 24 hr 10/15/22 10/15/22 10/15/22 08:55 08:55 08:55 WBC 9.3 RBC 5.42 Hgb 16.2 Hct 49.2 MCV 90.8 MCH 29.9 MCHC 32.9 RDW Std Deviation 39.8 RDW Coeff of Reji 12.1 Plt Count 337 MPV 10.8 Immature Gran % (Auto) 0.300 Neut % (Auto) 50.4 Lymph % (Auto) 39.2 [place] % (Auto) 9.2 Eos % (Auto) 0.5 Baso % (Auto) 0.4 Absolute Neuts (auto) 4.7 Absolute Lymphs (auto) 3.66 Nucleated RBC % 0 PT 12.7 INR 1.0 APTT 31.7 Sodium 142 Potassium 4.2 Chloride 111 H Carbon Dioxide 25.0 Anion Gap 6 BUN 14 Creatinine 1.07 Estim Creat Clear Calc 88.16 Est GFR (MDRD) Af Amer 92 Est GFR (MDRD) Non-Af 76 BUN/Creatinine Ratio 13.1 Glucose 120 H Calcium 9.0 EKG Initial EKG: Attestation: I personally reviewed and interpreted this EKG as follows: Comments: SVT rate of 178, no ST or T wave changes QTC 413. Discharge Plan Triage Chief Complaint: Palpitations ED Provider: Brad Ridley Dx/Rx/DC Orders Clinical Impression: SVT (supraventricular tachycardia), Palpitation Prescriptions: No Action aspirin [Adult Low Dose Aspirin] 81 mg tablet,delayed release (DR/EC) 81 mg PO DAILY ascorbic acid (vitamin C) 500 mg tablet 500 mg PO DAILY magnesium 250 mg tablet 250 mg PO DAILY cholecalciferol (vitamin D3) 125 mcg (5,000 unit) capsule 125 mcg PO DAILY amitriptyline 25 mg tablet 25 mg PO QHS Dupixent Pen 300 mg/2 mL pen injector 300 mg subcut Q2W vitamin K2 100 mcg capsule 100 mcg PO DAILY multivitamin 1 EACH tablet 1 ea PO DAILY loratadine 10 MG tablet 10 mg PO DAILY amlodipine 5 mg tablet 5 mg PO DAILY Label Comments: TAKE 1 TABLET BY MOUTH EVERY DAY gemfibrozil 600 mg tablet 600 mg PO BID Livalo 4 mg tablet 4 mg PO DAILY Repatha SureClick 140 mg/mL pen injector 140 mg subcut Q2W metoprolol tartrate 50 mg Tablet 50 mg PO BID Qty: 60 2RF Primary Care Provider: Nnamdi Garcia Referrals: Nnamdi Garcia MD [Primary Care Provider] - Disposition Disposition: DC/Tx to Another Type of HCF
--- NOTE | 2022-10-15 10:41 | NURSING ---
WAS ON HOLD WITH [facility] TRANSFER LINE FOR 50 MIN. FAXED FACESHEET.
--- NOTE | 2022-10-15 11:09 | NURSING ---
CALLED [facility], LOREE IS TALKING TO DR CHRISTIAN
--- NOTE | 2022-10-15 13:33 | ED.RN ---
Per Dr. Ridley pt. can eat
--- NOTE | 2022-10-15 13:43 | NURSING ---
[facility] [id number] NURSE TO NURSE [phone]
--- NOTE | 2022-10-15 13:51 | NURSING ---
CALLED [facility], ETA IS 2.5 HRS
== END 2022-10-15 18:46 | disposition other institution (70) ==
PROVIDERS: Emergency Provider Emergency Medicine; PCP Family Medicine; Visit Provider Emergency Medicine
DX: I47.1 Supraventricular tachycardia (principal); I25.10 Atherosclerotic heart disease of native coronary artery without angina pectoris; I10 Essential (primary) hypertension; E78.00 Pure hypercholesterolemia, unspecified; Z79.82 Long term (current) use of aspirin; Z79.899 Other long term (current) drug therapy; Z87.891 Personal history of nicotine dependence
CPT/HCPCS: 80048; 85025; 85610; 85730; 93005; 96365; 96366; 96375; 99285; J7030; A4216; J0153

== ENCOUNTER → 2023-09-29 | Outpatient (CLI) | payer OTHER, SELFPAY ==
[2023-09-29 13:12] LABS: Vitamin D,25 Hydroxy 48.3 ng/mL
[2023-09-29 13:56] LABS: Anion Gap 5 (5-15); BUN 12 mg/dL (7-18); BUN/Creat Ratio 12.3 RATIO (10-20); Calcium,Total 8.9 mg/dL (8.5-10.1); Chloride 109 mmol/L (98-107); Cholesterol 168 mg/dL (200); Creatinine, Serum 0.98 mg/dL (0.70-1.30); EST Glomerular Filtration Rate 84 mL/min (>60); Est Glom Filt Rate - Afr Amer 102 mL/min (>60); Glucose 97 mg/dL (74-106); High Density Lipoprotein 56 mg/dL; Potassium 4.3 mmol/L (3.5-5.1); Sodium Level 137 mmol/L (136-145); Triglycerides 180 mg/dL; Very Low Density Lipoprotein 36 mg/dL (5-40)
== END | disposition home or self-care (01) ==
LOC: MFPLAB 10:14
PROVIDERS: PCP Family Medicine; Visit Provider Family Medicine
DX: I10 Essential (primary) hypertension (principal); E55.9 Vitamin D deficiency, unspecified
CPT/HCPCS: 36415; 80048; 80061; 82306

== ENCOUNTER 2023-10-05 09:32 | Emergency (ER) | payer OTHER, SELFPAY ==
[2023-10-05 09:32] VITALS: BP 146/102; PULSE 93; RESP 16; TEMP 36.3; O2SAT 99; BMI 32.0
--- NOTE | 2023-10-05 09:55 | EX.ED.VISEXT ---
HPI History of Present Illness HPI Narrative: Right right thumb approximately 1 week ago last Monday night. Chief Complaint: Bite Informant: patient Onset/Context/Timing Onset: Days Context: Sudden Onset Timing: Continuous Current Severity: Mild Maximum Severity: Mild Associated Symptoms Associated Symptoms: Negative for Parasthesia, Weakness or Loss of Funtion Narrative Narrative: 57-year-old male history of prior SVT with cardiac ablation. Was at an [employer]. There was a bat he and others were able to get it out of the building and he caught it in like a wash rag as he was taken outside he believes it may have bit him in his right thumb. This occurred about a week ago. No other complaints. No swelling or redness to his hand. Tetanus is up-to-date. Tetanus Immunization: 5-10 years Prior similar symptoms: No Recent Illness/Hospitalization: No ROS ROS ED ROS Narrative Denies recent illness. Review of Systems ROS Unobtainable: Denies due to encephalopathy Constitutional Constitutional ED: Denies chills or fever(s) Eyes Eyes: Denies blurry vision ENT ENT ED: Denies ear pain Cardiovascular Cardiovascular: Denies chest pain Respiratory/Chest Respiratory/Chest: Denies cough or dyspnea Gastrointestinal Gastrointestinal: Denies abdominal pain Genitourinary Genitourinary ED: Denies dysuria or hematuria Musculoskeletal Musculoskeletal: Denies arthralgias Integumentary Denies abscess Neurologic Neurologic: Denies headache(s) Psychiatric Psychiatric: Denies anxiety or depression Hematologic/Lymphatic Hematologic/Lymphatic: Denies easy bleeding or easy bruising Allergic/Immunologic Allergic/Immunologic ED: Denies mouth swelling, tongue swelling or urticaria PFSH PFSH Medical History Anxiety Borderline systolic HTN Coronary artery calcification Epigastric pain Gastric mass GERD (gastroesophageal reflux disease) Pure hypercholesterolemia Sleep apnea SVT (supraventricular tachycardia) Home Medications loratadine 10 mg tablet 10 mg PO DAILY Allergies 03/20/18 [History Last Taken 10/14/22] multivitamin 1 ea PO DAILY Supplement 03/20/18 [History Last Taken 10/14/22] amitriptyline 25 mg tablet 25 mg PO QHS 07/09/20 [History Last Taken 10/14/22] ascorbic acid (vitamin C) 500 mg tablet 500 mg PO DAILY 07/09/20 [History Last Taken 10/14/22] cholecalciferol (vitamin D3) 125 mcg (5,000 unit) capsule 125 mcg PO DAILY 07/09/20 [History Last Taken 10/14/22] dupilumab 300 mg/2 mL subcutaneous pen injector (Dupixent) 300 mg subcut Q2W eczema 09/06/21 [History Last Taken 10/11/22] apixaban 5 mg tablet 5 mg PO BID #180 tabs 12/08/22 [Rx Last Taken Unknown] metoprolol tartrate 50 mg tablet 25 mg PO BID 01/26/23 [History Last Taken Unknown] omega-3 fatty acids 1,000 mg capsule 1,000 mg PO DAILY 01/26/23 [History Last Taken Unknown] pitavastatin calcium 4 mg tablet (Livalo) 4 mg PO DAILY Prior Auth approved through 02/10/2024 #90 tabs 02/13/23 [Rx Last Taken Unknown] gemfibrozil 600 mg tablet See Rx Instructions .Route .COMPLEX #180 TABLETS 03/16/23 [Rx Last Taken Unknown] evolocumab 140 mg/mL subcutaneous syringe (Repatha Syringe) See Rx Instructions .Route .COMPLEX #2 mL 08/01/23 [Rx Last Taken Unknown] Allergy/AdvReac Type Severity Reaction Status Date / Time latex Allergy Itching Verified 10/05/23 09:32 atorvastatin AdvReac Severe Myalgias Verified 10/05/23 09:32 simvastatin AdvReac Severe myalgias Verified 10/05/23 09:32 lisinopril AdvReac Intermediate cough Verified 10/05/23 09:32 Family History Father Heart disease Myocardial infarction Cancer pancreas Mother Diabetes Cardiac pacemaker in situ Heart valve disorder Surgical History History of arthroscopy of left knee History of colonoscopy (~2018) History of vasectomy S/P ablation of atrial fibrillation Social History Smoking Status: Former smoker how long ago did patient quit smokin alcohol intake: current alcohol intake frequency: a few times a week substance use type: does not use caffeine: Yes Type: coffee Number of servings: 3 EXAM Physical Exam Narrative Exam Narrative: Well-appearing 57-year-old male. Vital signs stable afebrile. HEENT exam normal. Lungs clear. Heart regular rhythm no murmur. Chest wall nontender. Abdomen soft nontender. Moving all 4 extremities. Right thumb palmar aspect there does appear to be a small bite larry. No redness or warmth. No swelling or bleeding. Otherwise exam normal. Const Vital Signs: 10/05/23 09:32 Temperature 97.4 F L Temperature Source Temporal Pulse Rate 93 Respiratory Rate 16 Blood Pressure 146/102 H Blood Pressure Mean 116 Pulse Ox 99 Oxygen Delivery Method Room Air Positive well nourished and well developed; Negative for cachectic, contractures or unkempt General Appearance ED: well developed and NAD; Negative for unkempt, cachectic or contractures Nutritional Appearance: Negative for cachectic HEENT Reports moist mucous membranes normocephalic and atraumatic; Negative for trauma or tenderness Eyes PERRL and EOMs intact bilaterally General Eye ED: Negative for other Neck full ROM and no lymphadenopathy General: Negative for tenderness Resp normal respiratory effort and clear to auscultation bilaterally Effort and Inspection: Negative for other Auscultation: Negative for rales, rhonchi or wheezes Cardio regular rate, regular rhythm, S1 normal heart sound and S2 normal heart sound Jugular Venous Distention: Negative for other Rate: Negative for bradycardia or tachycardic Rhythm: Negative for abnormal rhythm GI non-tender, non-distended and no masses Inspection: Negative for abdominal distention Auscultation: normoactive bowel sounds Palpation: soft; Negative for tender or guarding no CVA tenderness Bladder / Kidney Exam: No CVA tenderness Back/Spine no CVA tenderness General Back: Negative for CVA tenderness Cervical Spine: Negative for cervical spine tenderness Thoracic Spine / Upper Back: Negative for thoracic spinal tenderness Lumbar Spine / Lower Back: Negative for lumbar spinal tenderness Extremity normal to inspection and full ROM Extremity Narrative: Small bite larry palmar aspect right mid thumb. No swelling nor redness. No pain. Normal range of motion. General Extremety ED: Negative for deformity, edema or tenderness General Extremity: Negative for deformity or edema Neuro oriented x3 and CN's II-XII intact bilaterally Sensorium / Orientation: alert, oriented to person, oriented to place and oriented to time; Negative for orientation impaired, confused, lethargic or stuporous Motor Exam: strength 5/5 throughout Psych mental status grossly normal and thought process normal Appearance: Negative for unkempt Attitude: No agitated Mood & Affect: Negative for anxious Skin skin turgor normal General Skin Exam: Negative for other Lesions: no lesions Rashes: no rashes Trauma: Negative for abrasion or laceration MDM MDM MDM Narrative Medical decision making narrative: 57-year-old male that bite right thumb about a week ago. He will be started on rabies vaccination series. Also given immunoglobulin. Discharged home. Discharge Plan Triage Chief Complaint: Bite ED Provider: Gavin Horton Dx/Rx/DC Orders Clinical Impression: Bat bite of finger Instructions: ED Animal Bite (General) Prescriptions: No Action ascorbic acid (vitamin C) 500 mg tablet 500 mg PO DAILY cholecalciferol (vitamin D3) 125 mcg (5,000 unit) capsule 125 mcg PO DAILY amitriptyline 25 mg tablet 25 mg PO QHS Dupixent Pen 300 mg/2 mL pen injector 300 mg subcut Q2W omega-3 fatty acids 1,000 mg capsule 1,000 mg PO DAILY metoprolol tartrate 50 mg tablet 25 mg PO BID multivitamin 1 EACH tablet 1 ea PO DAILY loratadine 10 MG tablet 10 mg PO DAILY apixaban 5 mg tablet 5 mg PO BID Qty: 180 3RF Livalo 4 mg tablet 4 mg PO DAILY Qty: 90 3RF gemfibrozil 600 mg tablet See Rx Instructions .ROUTE .COMPLEX Qty: 180 3RF Dose Instruction: TAKE 1 TABLET BY MOUTH TWICE A DAY Rx Instructions: TAKE 1 TABLET BY MOUTH TWICE A DAY Repatha Syringe 140 mg/mL syringe See Rx Instructions .ROUTE .COMPLEX Qty: 2 11RF Dose Instruction: ADMINISTER 1 ML UNDER THE SKIN EVERY 2 WEEKS Rx Instructions: ADMINISTER 1 ML UNDER THE SKIN EVERY 2 WEEKS Primary Care Provider: Nnamdi Garcia Referrals: Nnamdi Garcia MD [Primary Care Provider] - As Needed Activity Restrictions/Additional Instructions: Watch your thumb does not get in suspected. Such as redness, swelling or increasing pain. Follow-up to get the rest of the rabies vaccine series. Disposition Disposition: Home, Self Care
[2023-10-05] MEDS: Rabies Immune Globulin/PF 300 UNIT/ML, 5 ML VIAL 2200 UNIT IM (11:25)
[2023-10-05] MEDS: Rabies Vaccine,Human Diploid 2.5 UNITS Vial IM (11:30)
[2023-10-05 11:39] VITALS: BP 138/74; PULSE 62; RESP 15; O2SAT 98
== END 2023-10-05 11:42 | disposition home or self-care (01) ==
LOC: ED 10:02
PROVIDERS: Emergency Provider Emergency Medicine; PCP Family Medicine; Visit Provider Emergency Medicine
DX: S61.051A Open bite of right thumb without damage to nail, initial encounter (principal); I25.10 Atherosclerotic heart disease of native coronary artery without angina pectoris; E78.00 Pure hypercholesterolemia, unspecified; K21.9 Gastro-esophageal reflux disease without esophagitis; F41.9 Anxiety disorder, unspecified; G47.30 Sleep apnea, unspecified; Z79.899 Other long term (current) drug therapy; Z87.891 Personal history of nicotine dependence; W55.81XA Bitten by other mammals, initial encounter; Z23 Encounter for immunization
CPT/HCPCS: 90675; 96372; 99283; 90375

== ENCOUNTER 2023-10-08 10:40 | Outpatient (CLI) | payer OTHER, SELFPAY ==
[2023-10-08] MEDS: Rabies Vaccine,Human Diploid 2.5 UNITS Vial IM (11:22)
[2023-10-08 11:27] VITALS: BP 156/95; PULSE 103; RESP 16; O2SAT 98
== END 2023-10-08 11:20 | disposition home or self-care (01) ==
PROVIDERS: PCP Family Medicine
DX: Z23 Encounter for immunization (principal)
CPT/HCPCS: 90675; 96372

== ENCOUNTER 2023-10-12 07:29 | Outpatient (CLI) | payer OTHER, SELFPAY ==
[2023-10-12] MEDS: Rabies Vaccine,Human Diploid 2.5 UNITS Vial IM (07:46)
[2023-10-12 07:53] VITALS: BP 147/89; PULSE 96; RESP 18; TEMP 35.9; O2SAT 94
== END 2023-10-12 08:10 | disposition home or self-care (01) ==
PROVIDERS: PCP Family Medicine; Visit Provider Emergency Medicine
DX: Z23 Encounter for immunization (principal)
CPT/HCPCS: 90675; 96372

== ENCOUNTER 2023-10-19 08:40 | Outpatient (CLI) | payer OTHER, SELFPAY ==
[2023-10-19 08:42] VITALS: BP 149/88; PULSE 83; RESP 14; O2SAT 100
--- OUTSIDE RECORDS SUMMARY | 2023-10-19 09:07 | XMS RPT_ITS | CCD ---
Author Name Unknown Address [address] [place] [address] Organization [facility] Care Team Providers Care Senior Telecommunications Engineer Name Role Phone Nnamdi Garcia Primary Care Provider [phone] Tyler Whiteside Unavailable Unavailable Shin Johns Unavailable Nnamdi Garcia MD Primary Care Provider DO Tyler Whiteside Attending Unavailab Dr. Shin Torres Attending Unavail able Nnamdi Garcia MD Primary Care Provider Nnamdi Garcia MD Primary Care Provider MOODY CHRISTINE Admitting Unavailable MOODY CHRISTINE Attending Unavailable CONSULT, NEUROLOGY-STROKE ALERT Consulting Unavailable NNAMDI GARCIA Primary Care Unavailable SOL RASCON Referring Unavailable HELENA OLIVA Admitting Unavailable CONSULT, CARDIOLOGY - EP Consulting Unavail able NNAMDI GARCIA Primary Care Unavailable MARTY TURNER Attending Unavailable CAROL ENRIQUEZ Attending Unavailable NNAMDI GARCIA Referring Unavailable NNAMDI GARCIA Primary Care Unavailable NNAMDI GARCIA Primary Care Unavailable NNAMDI GARCIA Primary Care Unavailable NNAMDI GARCIA Primary Care Unavailable ABDIAZIZ BRYAN Attending Unavailable ABDIAZIZ BRYAN Referring Unavailable MOODY CHRISTINE Attending Unavailable MOODY CHRISTINE Referring Unavailable NNAMDI GARCIA Primary Care Unavailable NNAMDI GARCIA Primary Care Unavailable ELBA MALAVE Attending Unavailable NNAMDI GARCIA Referring Unavailable NNAMDI GARCIA Primary Care Unavailable NNAMDI MAYA Attending Unavailable NNAMDI MAYA Referring Unavailable NNAMDI GARCIA Primary Care Unavailable LIZ BLACK Referring Unavailable LIZ BLACK Attending Unavailable Allergies Allergy Classification Reported Allergen(s) Allergy Type Date of Onset Reaction(s) Facility (6 sources) atorvastatin Drug Allergy 2 Myalgia [facility] Work Phone: (8 sources) Latex; Translations: [LATEX] Propensity to adverse reactions to drug 0 Itching, Rash [facility] (6 sources) Lisinopril Drug Allergy 2 Cough [facility] (8 sources) Cat Dander; Translations: [CAT DANDER] Propensity to adverse reactions to drug 0 Intolerance [facility] (6 sources) *Seasonal Propensity to adverse reactions to substance 2 [facility] (2 sources) Grass pollen; Translations: [GRASS POLLEN] Drug Intolerance 0 Intolerance [facility] Work Phone: Medications Current Medications Medication Drug Class(es) Dates Sig (Normalized) Sig (Original) amLODIPine 5 mg oral tablet (6 sources) Dihydropyridine Calcium Channel Shon Start: 04-06-2023 amLODIPine 5 MG tablet Completed/Discontinued Medications Medication Drug Class(es) Dates Sig (Normalized) Sig (Original) acetaminophen 325 mg oral tablet (2 sources) Start: 01-09-2023 End: 01-09-2023 take 1 tablet by mouth every six hours as needed Acetaminophen (TYLENOL) tablet 325 mg Problems Active Problems Problem Classification Problem Date Documented Date Episodic/Chronic Anxiety disorders (2 sources) Anxiety; Translations: [Anxiety disorder, unspecified] Onset: 10-31-2019 10-31-2019 Chronic Cardiac dysrhythmias (20 sources) Ventricular premature beats; Translations: [Paroxysmal supraventricular tachycardia] Onset: 10-31-2019 10-31-2019 Chronic Cardiac dysrhythmias (2 sources) John rhythm disorder; Translations: [Other specified cardiac dysrhythmias] Onset: 10-15-2022 10-15-2022 Episodic Disorders of lipid metabolism (7 sources) Hypercholesterolemia; Translations: [Pure hypercholesterolemia, unspecified] Onset: 10-31-2019 10-31-2019 Chronic Essential hypertension (7 sources) Essential (primary) hypertension; Translations: [Essential hypertension] Onset: 10-15-2022 04-11-2023 Chronic Nonspecific chest pain (1 source) Other chest pain; Translations: [Other chest pain] Onset: 10-15-2022 Episodic Other aftercare (1 source) Other fci (current) drug therapy; Translations: [Other fci (current) drug therapy] Onset: 10-15-2022 Episodic Other disorders of stomach and duodenum (1 source) Other diseases of stomach and duodenum; Translations: [Submucosal lesion of stomach] Onset: 07-18-2023 Episodic Other nutritional; endocrine; and metabolic disorders (2 sources) Obesity; Translations: [Other obesity due to excess calories] Onset: 10-31-2019 10-31-2019 Chronic Other nutritional; endocrine; and metabolic disorders (3 sources) Obese class I; Translations: [Obesity, unspecified] Onset: 04-11-2023 04-11-2023 Chronic Residual codes; unclassified (2 sources) Obstructive sleep apnea syndrome; Translations: [Obstructive sleep apnea (adult) (pediatric)] Onset: 10-31-2019 10-31-2019 Chronic Residual codes; unclassified (4 sources) History of radiofrequency ablation operation for arrhythmia; Translations: [Other specified postprocedural states] Onset: 04-11-2023 04-11-2023 Episodic Unclassified (2 sources) INCREASED HR AND BP 10-04-2022 Past or Other Problems Problem Classification Problem Date Documented Da te Episodic/Chronic Other gastrointestinal disorders (2 sources) Mass of stomach; Translations: [Other diseases of stomach and duodenum] Onset: 10-31-2019 10-31-2019 Episodic Other infections; including parasitic (1 source) Personal history of other infectious and parasitic diseases; Translations: [History of 2019 novel coronavirus disease (COVID-19)] Onset: 10-13-2020 10-13-2020 Episodic Screening and history of mental health and substance abuse codes (3 sources) Ex-smoker; Translations: [Personal history of nicotine dependence] Onset: 10-31-2019 10-31-2019 Episodic Results Test Name Value Interpretation Reference Range Facil ity Vital Signs Date Time Vital Sign Value Performing Clinician Facility 04-11-2023 14:41-0400 Body height 185.4 cm Carol Enriquez APRN-SAMPLE COLLECTOR Work Phone: [facility] 04-11-2023 14:41-0400 Body mass index (BMI) [Ratio] 32.26 kg/m2 Carol Enriquez ROCK CRUSHER OPERATOR-SAMPLE COLLECTOR Work Phone: [facility] 04-11-2023 14:41-0400 Body weight 110.9 kg Carol Enriquez ROCK CRUSHER OPERATOR-SAMPLE COLLECTOR Work Phone: [facility] 04-11-2023 14:41-0400 Diastolic blood pressure 78 mm[Hg] Carol Enriquez ROCK CRUSHER OPERATOR-SAMPLE COLLECTOR Work Phone: [facility] 04-11-2023 14:41-0400 Heart rate 86 /min Carol Enriquez ROCK CRUSHER OPERATOR-SAMPLE COLLECTOR Work Phone: [facility] 04-11-2023 14:41-0400 Respiratory rate 20 /min Carol Enriquez ROCK CRUSHER OPERATOR-SAMPLE COLLECTOR Work Phone: [facility] 04-11-2023 14:41-0400 Systolic blood pressure 132 mm[Hg] Carol Enriquez ROCK CRUSHER OPERATOR-SAMPLE COLLECTOR Work Phone: [facility] 04-11-2023 10:54-0400 Body mass index (BMI) [Ratio] 31.8 kg/m2 Nnamdi Maya MD Work Phone: [facility] 04-11-2023 10:54-0400 Body weight 109.32 kg Nnamdi Maya MD Work Phone: [facility] 04-11-2023 10:54-0400 Diastolic blood pressure 78 mm[Hg] Nnamdi Maya MD Work Phone: [facility] 04-11-2023 10:54-0400 Heart rate 73 /min Nnamdi Maya MD Work Phone: [facility] 04-11-2023 10:54-0400 Respiratory rate 14 /min Nnamdi Maya MD Work Phone: [facility] 04-11-2023 10:54-0400 SaO2% (BldA) [Mass fraction] 98 % Nnamdi Maya MD Work Phone: [facility] 04-11-2023 10:54-0400 Systolic blood pressure 134 mm[Hg] Nnamdi Maya MD Work Phone: [facility] 01-09-2023 14:30-0400 Heart rate 86 /min Moody Christine MD Work Phone: [facility] 01-09-2023 14:30-0400 Respiratory rate 21 /min oMody Christine MD Work Phone: [facility] 01-09-2023 14:15-0400 Diastolic blood pressure 66 mm[Hg] Moody Christine MD Work Phone: [facility] 01-09-2023 14:15-0400 SaO2% (BldA) [Mass fraction] 97 % Moody Christine MD Work Phone: [facility] 01-09-2023 14:15-0400 Systolic blood pressure 108 mm[Hg] Moody Christine MD Work Phone: [facility] 01-09-2023 10:24-0400 Body temperature 96.69 [degF] Moody Christine MD Work Phone: [facility] 01-09-2023 06:07-0400 Body height 185.4 cm Moody Christine MD Work Phone: [facility] 01-09-2023 06:07-0400 Body mass index (BMI) [Ratio] 31.66 kg/m2 Moody Christine MD Work Phone: [facility] 01-09-2023 06:07-0400 Body weight 108.86 kg Moody Christine MD Work Phone: [facility] 01-06-2023 10:36-0400 Body height 185.4 cm Whitlock Irvin MBBS Work Phone: [facility] 01-06-2023 10:36-0400 Diastolic blood pressure 83 mm[Hg] Whitlock Irvin MBBS Work Phone: [facility] 01-06-2023 10:36-0400 Heart rate 84 /min Whitlock Irvin MBBS Work Phone: [facility] 01-06-2023 10:36-0400 Systolic blood pressure 137 mm[Hg] Whitlock Irvin MBBS Work Phone: [facility] 10-18-2022 17:27-0500 Body temperature 98.01 [degF] Marty Turner DO, MPH Work Phone: [facility] 10-18-2022 17:27-0500 Diastolic blood pressure 73 mm[Hg] Marty Turner DO, MPH Work Phone: [facility] 10-18-2022 17:27-0500 Heart rate 66 /min Marty Turner DO, MPH Work Phone: [facility] 10-18-2022 17:27-0500 Respiratory rate 18 /min Marty Turner DO, MPH Work Phone: [facility] 10-18-2022 17:27-0500 SaO2% (BldA) [Mass fraction] 96 % Marty Turner DO, MPH Work Phone: [facility] 10-18-2022 17:27-0500 Systolic blood pressure 115 mm[Hg] Marty Turner DO, MPH Work Phone: [facility] 10-18-2022 07:40-0500 Body height 185.4 cm Marty Turner DO, MPH Work Phone: [facility] 10-18-2022 07:40-0500 Body mass index (BMI) [Ratio] 31.27 kg/m2 Marty Turnre DO, MPH Work Phone: [facility] 10-18-2022 07:40-0500 Body weight 107.5 kg Marty Turner DO, MPH Work Phone: [facility] 10-15-2022 08:30-0500 Diastolic blood pressure 92 mm[Hg] Shin Johns Other Phone: [facility] 10-15-2022 08:30-0500 Systolic blood pressure 122 mm[Hg] Shin Johns Other Phone: [facility] 10-15-2022 08:23-0500 Heart rate 98 /min Shin Johns Other Phone: [facility] 10-15-2022 08:23-0500 Respiratory rate 18 /min Shin Johns Other Phone: [facility] 10-15-2022 08:23-0500 SaO2% (BldA) [Mass fraction] 98 % Shin Johns Other Phone: [facility] 10-15-2022 04:00-0500 Body height 185.4 cm Shin Johns Other Phone: [facility] 10-15-2022 04:00-0500 Body temperature 95.9 [degF] Shin Johns Other Phone: [facility] 10-15-2022 04:00-0500 Body weight 107 kg Shin Johns Other Phone: [facility] 10-04-2022 10:58-0500 Diastolic blood pressure 89 mm[Hg] Tyler Whiteside [facility] 10-04-2022 10:58-0500 Heart rate 88 /min Tyler Whiteside [facility] 10-04-2022 10:58-0500 Respiratory rate 18 /min Tyler Whiteside [facility] 10-04-2022 10:58-0500 SaO2% (BldA) [Mass fraction] 98 % Tyler Whiteside [facility] 10-04-2022 10:58-0500 Systolic blood pressure 128 mm[Hg] Tyler Whiteside [facility] 10-04-2022 04:45-0500 Body height 185.4 cm Tyler Whiteside [facility] 10-04-2022 04:45-0500 Body temperature 98.96 [degF] Tyler Whiteside [facility] 10-04-2022 04:45-0500 Body weight 108 kg Tyler Whiteside [facility] Encounters Encounter Date Encounter Type Care Provider Facility Start: 07-18-2023 ambulatory [facility] Facility :[facility] Start: 04-12-2023 Telephone encounter Arely Guan RN [facility] [place] Procedures Date Procedure Procedure Detail Performing Clinician Start: 01-09-2023 Ephys evl trnsptl tx atrial fib isolat pulm vein Moody Christine MD Work Phone: Start: 01-09-2023 ACT* LOW RANGE, POC Yehuda Christine MD Work Phone: Start: 01-09-2023 End: 01-09-2023 ACT* LOW RANGE, POC Moody Christine MD Work Phone: Start: 01-09-2023 Prothrombin time Padma Morin ROCK CRUSHER OPERATOR-SAMPLE COLLECTOR Work Phone: Start: 01-06-2023 Ct heart contrast ev al cardiac structure&morph Abdiaziz RAHMAN Work Phone: Start: 10-18-2022 Cv strs tst xers&/or rx cont ecg trcg only Chris Ziegler MD Work Phone: Start: 10-18-2022 CONTINUOUS CARDIAC MONITORING STRIP Other Other Start: 10-18-2022 Assay of magnesium Benj poncho Quan MD Work Phone: Start: 10-17-2022 CONTINUOUS CARDIAC MONITORING STRIP Other Other Start: 10-17-2022 Assay of magnesium Benj poncho Quan MD Work Phone: Start: 10-17-2022 Hepatic function panel Chris Ziegler MD Work Phone: Start: 10-16-2022 CONTINUOUS CARDIAC MONITORING STRIP Other Other Start: 10-16-2022 Assay of magnesium Benj poncho Quan MD Work Phone: Start: 10-16-2022 CONTINUOUS CARDIAC MONITORING STRIP Other Other Start: 10-15-2022 Bilirubin direct Benjam raj Quan MD Work Phone: Start: 10-15-2022 CBC AND ELECTRONIC DIFF Juan Quan MD Work Phone: Start: 10-15-2022 Complete blood count with white cell differential, automated Juan Quan MD Work Phone: Start: 10-15-2022 End: 10-15-2022 EKG impression Shin Johns Start: 10-04-2022 End: 10-04-2022 EKG impression Tyler Whiteside Plan of Treatment Date Care Activity Detail Author Start: 02-24-2031 Tetanus vaccination TETANUS [facility] Start: 12-28-2023 End: 12-28-2023 Patient encounter procedure 12/28/2023 1:30 PM EST Office Visit [facility] [address] [place] [phone] Moody Christine MD [address] [place] [phone] [facility] Start: 04-18-2023 End: 04-18-2023 Patient encounter procedure 04/18/2023 Office Visit Electrophysiology Radha Emery APRN-MARILEE [address] [place] [phone] [facility] [place] Start: 02-20-2023 End: 01-10-2024 Cardiac telemetry MOBILE CARDIAC TELEMETRY ECG Routine Paroxysmal atrial fibrillation Expected: 02/20/2023, Expires: 01/10/2024 [facility] Payers Date Payer Category Payer Private Health Insurance [id number] 2021 Private Health Insurance [id number] 2019 Unknown MMO MMO [employer] [id number] 2019-Present PPO [id number] 2019 Unknown 2019 Unknown [id number] 1966 Unknown [id number] 1966 Unknown [id number] 069 1966 Unknown [id number] 94 1966 Unknown [id number] 94 1966 Unknown [id number] 94 1966 Unknown [id number] 94 1966 Unknown [id number] 94 1966 Unknown [id number] 94 1966 Unknown [id number] 94 1966 Unknown [id number] 94 1966 Unknown [id number] 94 1966 Unknown [id number] 94 Social History Date Type Detail Facility Start: 11-01-2019 End: 01-09-2023 Tobacco smoking status NHIS Former smoker [facility] End: 10-23-2004 History of tobacco use Current smoker [facility] End: 10-23-2004 History of tobacco use Cigarette Smoker [facility] Start: 11-01-2019 End: 04-11-2023 Cigarettes smoked current (pack per day) - Reported [facility] Start: 11-01-2019 End: 01-09-2023 Tobacco use and exposure Never used [facility] Start: 11-01-2019 End: 04-11-2023 Alcohol intake Current drinker of alcohol (finding) [facility] Start: 10-31-2019 End: 11-01-2019 History SDOH Alcohol Frequency 4 [facility] Start: 10-31-2019 End: 11-01-2019 History SDOH Alcohol Std Drinks 2 [facility] Start: 10-31-2019 End: 11-01-2019 History SDOH Alcohol Binge 3 [facility] Start: 1965 Sex Assigned At Not on file C [facility] Tobacco smoking consumption unknown [facility] Start: 10-15-2022 Alcohol Comment couple drinks daily (wine/beer/ or bourbon) [facility] Start: 10-05-2022 End: 01-09-2023 Exposure to SARS-CoV-2 (event) Not sure [facility] Start: 10-13-2020 Alcohol Comment maybe 3 drinks a day 3 times a week [facility] Start: 12-21-2022 End: 12-31-2022 Exposure to SARS-CoV-2 (event) Unable to assess [facility] Start: 04-11-2023 Tobacco use panel [facility] Clinical Notes 10-15-2022 to 04-11-2023 Carol Enriquez APRN-MARILEE - 04/11/2023 2:30 PM EDTPatient InstructionsAddendum Note - Avani Santiago RN - 04/11/2023 2:30 PM EDTAddendum Note - Christal Abreu RN - 04/11/2023 2:30 PM EDTAttachments Note Date & Type Note Facility 04-11-2023 History of Present illness Narrative It was my pleasure to see Jose G Davila for consultation on 04/11/2023. He presents with a history of HTN, HLD, PVC, MONROE on CPAP, SVT, and pAF s/p AF ablation on January 09, 2023. Follow up event monitor following ablation does not show any recurrent atrial fibrillation. He stopped his flecainide 2 weeks post ablation and continues on Eliquis for a [id number] score of 1 (HTN). He is feeling well, and has occasional palpitations. He monitors his HR with a (brand?) watch, and on some nights has an elevated HR in the 170's, but no strips are available for these episodes. Overall he feels well. He is compliant with his CPAP. He is working on his diet and exercise. ASSESSMENT/PLAN: Mr. Davila has done well post AF ablation on January 09, 2023. After a long discussion with he and his , he has decided to remain on Eliquis. He notes some anxiety around recurrence of tachycardia in the middle of the night, and I talked with him about the possibility of an ILR. He is going to think about this and follow up with in 1 year. He will contiue his CPAP compliance and diet/exercise regimen to lose weight. Once again, it was my pleasure to participate in the care of your patient Jose G Davila. Please feel free to contact me if any questions or problems arise. Sincerely, Carol Enriquez CNP Nurse Practitioner, Electrophysiology Service [facility] [address] [place] [address] [phone] Cardiac Testing Reviewed: EP procedure January 09, 2023 ECG Treadmill 10/18/22 Overall, stress ecg is non-diagnostic for assessing ischemia since patient did not achieve 85% of maximal predicted heart rate. No significant QRS widening with exercise. Resting baseline ECG is normal sinus rhythm. Patient exercised using Gian protocol. No chest pain with exercise. Incomplete RBBB. QRS at rest ~115 ms. On exercise, there are no diagnostic ECG changes. No significant QRS widening with stress. Normal heart rate and blood pressure response to stress. Good exercise capacity for age and gender. Patient achieved 79% of maximal predicted heart rate. Max METS: 10.1. Overall, the stress ECG is negative for ischemia. No chief complaint on file. Past Medical History: Diagnosis Date Anxiety and depression Arrhythmia Chronic eczema Gastric mass following with GI; monitoring (next EGD 10/2022) GERD (gastroesophageal reflux disease) High triglycerides HLD (hyperlipidemia) HTN (hypertension) Irritable bowel syndrome with constipation MONROE (obstructive sleep apnea) PVC's (premature ventricular contractions) S/P AV john ablation SVT (supraventricular tachycardia) Past Surgical History: Procedure Laterality Date AV NODE ABLATION 01/09/2023 ARTHROSCOPY KNEE W/ MENISCUS REPAIR Left 2005 Family History Problem Relation Age of Onset Other - Specify Mother valve replacement Diabetes Mother Coronary Artery Disease Father CABG, multiple stents Cancer- Other Father Current Outpatient Medications Medication Sig Amitriptyline 25 MG tablet Take 1 tablet by mouth At bedtime. amLODIPine 5 MG tablet apixaban 5 MG tablet Take 1 tablet by mouth every 12 hours. Dupilumab (Dupixent) 300 MG/2ML Solution Pen-injector Inject under the skin. Every 2 weeks injections- for eczema Evolocumab (Repatha) 140 MG/ML Solution Prefilled Syringe injection Inject under the skin. Every 2 weeks injections- high cholesterol Gemfibrozil 600 MG tablet Take 1 tablet by mouth 2 times daily. Loratadine 10 MG capsule Take by mouth. Metoprolol 50 MG tab regular release Take 0.5 tablets by mouth 2 times daily. Decreased dose Multiple Vitamins-Minerals (Complete) tablet Take 1 tablet by mouth daily. Pitavastatin Calcium 4 MG tablet Take by mouth. Review of Systems - General ROS: negative for - chills, fever. Positive for fatigue. Psychological ROS: negative for - anxiety or depression ENT ROS: negative for - headaches or sore throat Endocrine ROS: negative for - malaise/lethargy Respiratory ROS: no cough, shortness of breath, or wheezing Cardiovascular ROS: no chest pain or dyspnea on exertion Gastrointestinal ROS: negative for - abdominal pain or nausea/vomiting Musculoskeletal ROS: negative for - muscular weakness Neurological ROS: no TIA or stroke symptoms Dermatological ROS: negative for - rash Physical Exam ECG SR VR85 bpm BP 132/78 (BP Location: Left arm, BP Position: Sitting) Pulse 86 Resp 20 Ht 1.854 m (6' 1 ) Wt 110.9 kg (244 lb 8 oz) BMI 32.26 kg/m Smoking Status Former General appearance: alert, cooperative, appears stated age Head: Normocephalic, without obvious abnormality Eyes: conjunctivae/corneas clear. EOM's intact. Nose: Nares normal. Mucosa normal. Neck: supple, symmetrical, trachea midline, no adenopathy, thyroid: not enlarged, symmetric, no tenderness/mass/nodules, no carotid bruit and no JVD Lungs: clear to auscultation bilaterally Heart: RRR Abdomen: soft, non-tender. Bowel sounds normal. No masses, no organomegaly Extremities: extremities normal, atraumatic, no cyanosis or edema Pulses: 2+ and symmetric Skin: Skin color, texture, turgor normal. No rashes or lesions. Neurologic: Grossly normal documented in this encounter [facility] 04-11-2023 Instructions Avani Santiago RN - 04/11/2023 2:30 PM EDT Continue current medications Follow-up appointment may be scheduled/determined in December with Dr. Christine Thank you for choosing [facility] for your Heart Care. [employer] is an available tool to securely access your online medical information. Please ask to enroll during any [facility] appointment. Once enrolled, your MD reviewed test results will be available for you to review at your convenience. [facility] messaging is reserved for non urgent messages and responses may take a few days. Call the [facility] at [phone] option 6, option 3 for urgent EP questions/concerns M-F 8 to 4:00 Call Scheduling for any appointment/procedure verification or changes [phone] If we are sending you an Event monitor and you have not received it when expected, please call the office. For any questions/problems with your monitor please call Scott at [phone]. [facility] testing and procedure patient Instructions may be obtained at: [email or web address] Insurance Concerns: [email or web address] documented in this encounter [facility] 04-11-2023 Miscellaneous Notes Addended by: AVANI SANTIAGO on: 04/12/2023 03:33 PM Modules accepted: Orders Addended by: BARBIE ABREU on: 04/12/2023 05:05 PM Modules accepted: Orders documented in this encounter [facility] 04-11-2023 Note Addended by: AVANI SANTIAGO on: 04/12/2023 03:33 PM Modules accepted: Orders [facility] 04-11-2023 Note Addended by: Ade ABREU on: 04/12/2023 05:05 PM Modules accepted: Orders [facility] 04-11-2023 Evaluation + Plan note Associated Problem(s): Hyperlipidemia The patient has a history of hyperlipidemia. He states his recent lipid labs demonstrated his lipids to be under reasonably good control. He is on multiple lipid-lowering medications at this time which have included gemfibrozil at 600 mg p.o. b.i.d., had a vast a statin at 4 mg p.o. q.day, and evolocumab/repatha at 140 milligram/mL subcutaneous twice monthly. At the present time he will continue his current medical regimen. He is continuing to follow with his primary care physician with his lipid labs. [facility] 04-11-2023 Evaluation + Plan note Associated Problem(s): Essential hypertension The patient has a history of hypertension. At the moment he will continue his current medical therapy. He was asked to monitor his blood pressure at home for any concerns that would warrant further adjustment of his antihypertensive regimen. [facility] 04-11-2023 Miscellaneous Notes Associated Problem(s): Hyperlipidemia The patient has a history of hyperlipidemia. He states his recent lipid labs demonstrated his lipids to be under reasonably good control. He is on multiple lipid-lowering medications at this time which have included gemfibrozil at 600 mg p.o. b.i.d., had a vast a statin at 4 mg p.o. q.day, and evolocumab/repatha at 140 milligram/mL subcutaneous twice monthly. At the present time he will continue his current medical regimen. He is continuing to follow with his primary care physician with his lipid labs. Associated Problem(s): Essential hypertension The patient has a history of hypertension. At the moment he will continue his current medical therapy. He was asked to monitor his blood pressure at home for any concerns that would warrant further adjustment of his antihypertensive regimen. Associated Problem(s): PVC (premature ventricular contraction) The patient has a history of PVC s. He states he still notes intermittent palpitations. At the present time he will continue to monitor for any significant concerns. He will continue his low-dose beta-shon therapy with his metoprolol tartrate at 25 mg p.o. b.i.d.. Associated Problem(s): SVT (supraventricular tachycardia) The patient does have a history of SVT. His SVT was noninducible during his EPS study. He states he is still concerned about the possibility of recurrent SVT. Thus at the moment he will continue his medical therapy with his beta-shon unless otherwise directed by electrophysiology. If he has recurrent episodes of his tachycardia then he may need additional evaluation in attempt to correlate recurrent cardiac dysrhythmia such as SVT with his symptoms. This could, in the form of continued outpatient ambulatory monitoring or potentially an implantable loop recorder. Associated Problem(s): Paroxysmal atrial fibrillation The patient has a history of atrial fibrillation. He has undergone evaluation and care as noted. He presents for outpatient cardiovascular follow-up. He is pending outpatient electrophysiology follow-up as well. At the present time he is going to continue his current medical management. Depending upon his electrophysiology follow-up consideration will be given as to whether or not he will remain on his beta-shon therapy and his anticoagulant therapy. As noted above he may choose to remain on his beta-shon therapy based upon its positive impact on his concerns of his palpitations related to PVCs and his elevated heart rate. documented in this encounter [facility] 04-11-2023 Evaluation + Plan note Associated Problem(s): PVC (premature ventricular contraction) The patient has a history of PVC s. He states he still notes intermittent palpitations. At the present time he will continue to monitor for any significant concerns. He will continue his low-dose beta-shon therapy with his metoprolol tartrate at 25 mg p.o. b.i.d.. [facility] 04-11-2023 Evaluation + Plan note Associated Problem(s): SVT (supraventricular tachycardia) The patient does have a history of SVT. His SVT was noninducible during his EPS study. He states he is still concerned about the possibility of recurrent SVT. Thus at the moment he will continue his medical therapy with his beta-shon unless otherwise directed by electrophysiology. If he has recurrent episodes of his tachycardia then he may need additional evaluation in attempt to correlate recurrent cardiac dysrhythmia such as SVT with his symptoms. This could, in the form of continued outpatient ambulatory monitoring or potentially an implantable loop recorder. [facility] 04-11-2023 Evaluation + Plan note Associated Problem(s): Paroxysmal atrial fibrillation The patient has a history of atrial fibrillation. He has undergone evaluation and care as noted. He presents for outpatient cardiovascular follow-up. He is pending outpatient electrophysiology follow-up as well. At the present time he is going to continue his current medical management. Depending upon his electrophysiology follow-up consideration will be given as to whether or not he will remain on his beta-shon therapy and his anticoagulant therapy. As noted above he may choose to remain on his beta-shon therapy based upon its positive impact on his concerns of his palpitations related to PVCs and his elevated heart rate. [facility] 04-11-2023 History of Present illness Narrative Referring provider: Nnamdi Garcia MD (General) Primary care provider: Nnamdi Garcia MD (General) Dear Dr. Garcia, I had the pleasure of seeing your patient, Jose G Davila, at the [facility] on 04/11/2023. As you recall, you referred this 57 y.o. male to our attention for a new outpatient cardiovascular visit regarding a history of atrial fibrillation status post EPS/RFA, SVT, PVC s, superimposed on a history of hypertension hyperlipidemia.. I have personally reviewed pertinent outpatient and inpatient medical records available for review at this time regarding this patient. Chief Complaint Patient presents with Establish Care Previous pt. Would like to discuss SVT and previous treatments. Pt had an Ablation 01/09/2023 HPI: This is a 57-year-old white male who had been previously evaluated in both [place], [place] and [place] for concerns of palpitations and rapid heart rate being diagnosed with concerns of atrial fibrillation and SVT superimposed on a history of PVCs. He had been treated medically during those evaluations in the emergency department in both [place], [place] and [place] with agents such as adenosine and IV diltiazem. He had been placed on medical management with beta-shon therapy. However based upon recurrent concerns and a recurrent emergency department evaluation he was subsequently transferred to [facility] for further evaluation and care. He subsequently underwent inpatient evaluation which included an exercise tolerance test and medical management with the addition of an antiarrhythmic agent-flecainide/Tambocor. He was released home for continued outpatient follow-up with plans to return to electrophysiology. He did return for an electrophysiology evaluation during which she underwent an EP study. He underwent EPS/RFA for concerns of atrial fibrillation. He also underwent further evaluation in attempt to induce SVT by the administration of isoproterenol. The SVT was not inducible. He was released home for continued outpatient follow-up. He states as part of his outpatient follow-up he has subsequently undergone additional evaluation with an outpatient ambulatory event monitor. The results of the monitor are noted below. They were reviewed with him during his outpatient visit. He states overall he continues to note intermittent episodes of palpitations that he believes is compatible with his PVCs. He does note at times his heart rate does increase. He believes his heart rate does go above and beyond 100 beats per minute. There has been no documented recurrence of his atrial fibrillation or SVT. He states he otherwise remains active. He has had no other ongoing concerns of chest discomfort or difficulty breathing. He has had no near-syncope or syncope. He does have a follow-up appointment later this day with electrophysiology. At that time consideration may be given depending upon his clinical course as to whether not he needs to remain on his medical therapy with respect to his beta-shon and his anticoagulant. He states that he may want to remain on his beta-shon based upon its ability to assist with his PVCs and his heart rate. Separately, he states he has been following with his PCP. He states he has undergone further laboratory studies with respect to his lipid labs. His understanding is that his lipid labs are under good control. His laboratory studies are unavailable at this time for review. Historical information was reviewed in the medical record, as noted above. The following historical elements were reviewed by a provider in the specific [facility] and updated as appropriate: Review of Systems Cardiovascular: Positive for palpitations. Negative for chest pain, dyspnea on exertion, leg swelling, near-syncope, orthopnea, paroxysmal nocturnal dyspnea and syncope. Outpatient Medications Prior to Visit Medication Sig Dispense Refill Amitriptyline 25 MG tablet Take 1 tablet by mouth At bedtime. amLODIPine 5 MG tablet apixaban 5 MG tablet Take 1 tablet by mouth every 12 hours. 60 tablet 1 Dupilumab (Dupixent) 300 MG/2ML Solution Pen-injector Inject under the skin. Every 2 weeks injections- for eczema Evolocumab (Repatha) 140 MG/ML Solution Prefilled Syringe injection Inject under the skin. Every 2 weeks injections- high cholesterol Gemfibrozil 600 MG tablet Take 1 tablet by mouth 2 times daily. Loratadine 10 MG capsule Take by mouth. Metoprolol 50 MG tab regular release Take 0.5 tablets by mouth 2 times daily. Decreased dose 30 tablet 3 Multiple Vitamins-Minerals (Complete) tablet Take 1 tablet by mouth daily. Pitavastatin Calcium 4 MG tablet Take by mouth. aspirin 81 MG Chew Tab chewable tablet Chew 1 tablet daily. Take for 1 month and then stop (Patient not taking: Reported on 04/11/2023) Flecainide 100 MG tablet Take 1 tablet by mouth every 12 hours. Take for two weeks and then stop (Patient not taking: Reported on 04/11/2023) 60 tablet 1 methylPREDNIsolone 4 MG Tab Therapy Pack tablet Take 1 tablet by mouth See admin instructions. follow package directions (Patient not taking: Reported on 04/11/2023) 21 tablet 0 Pantoprazole [address] tablet DR Take 1 tablet by mouth daily. Take for 30 days and then stop. (Patient not taking: Reported on 04/11/2023) 30 tablet 0 No facility-administered medications prior to visit. Allergies Allergen Reactions Atorvastatin Myalgia Cat Dander Grass [*Seasonal] pollen Latex Lisinopril Cough Past Medical History: Diagnosis Date Anxiety and depression Arrhythmia Chronic eczema Gastric mass following with GI; monitoring (next EGD 10/2022) GERD (gastroesophageal reflux disease) High triglycerides HLD (hyperlipidemia) HTN (hypertension) Irritable bowel syndrome with constipation [place] (obstructive sleep apnea) PVC's (premature ventricular contractions) S/P AV john ablation SVT (supraventricular tachycardia) Past Surgical History: Procedure Laterality Date AV NODE ABLATION 01/09/2023 ARTHROSCOPY KNEE W/ MENISCUS REPAIR Left 2005 Family History Problem Relation Age of Onset Other - Specify Mother valve replacement Diabetes Mother Coronary Artery Disease Father CABG, multiple stents Cancer- Other Father Social History Socioeconomic History Marital status: Spouse name: Not on file Number of children: Not on file Years of education: Not on file Highest education level: Not on file Occupational History Not on file Tobacco Use Smoking status: Former Types: Cigarettes Quit date: 10/23/2004 Years since quittin.4 Smokeless tobacco: Never Vaping Use Vaping Use: Never used Substance and Sexual Activity Alcohol use: Yes Alcohol/week: 4.0 standard drinks of alcohol Types: 2 Glasses of wine, 2 Cans of beer per week Comment: couple drinks daily (wine/beer/ or bourbon) Drug use: Not Currently Sexual activity: Not on file Other Topics Concern Not on file Social History Narrative Not on file Social Determinants of Health Financial Resource Strain: Not on file Food Insecurity: Not on file Transportation Needs: Not on file Physical Activity: Not on file Stress: Not on file Social Connections: Not on file Intimate Partner Violence: Not on file Housing Stability: Not on file On physcial exam today, the vital signs are as follows: BP 134/78 (BP Location: Left arm, BP Position: Sitting) Pulse 73 Resp 14 Ht (P) 1.854 m (6' 1 ) Wt 109.3 kg (241 lb) SpO2 98% BMI (P) 31.80 kg/m Smoking Status Former Body mass index is 31.8 kg/m (pended).. Physical Exam Constitutional: Appearance: Normal appearance. HENT: Head: Normocephalic and atraumatic. Cardiovascular: Rate and Rhythm: Normal rate and regular rhythm. Pulses: Radial pulses are 2+ on the right side and 2+ on the left side. Posterior tibial pulses are 2+ on the right side and 2+ on the left side. Heart sounds: Normal heart sounds. No murmur heard. No friction rub. No gallop. Musculoskeletal: Cervical back: Normal range of motion and neck supple. Right lower leg: No edema. Left lower leg: No edema. Neurological: Mental Status: He is alert. Relevant diagnostic data includes the following: No results found for: CHOLESTEROL , TRIG , HDL , LDLCALC , LDLDIRECT , NHCHOL Lab Results Component Value Date SODIUM 142 01/06/2023 POTASSIUM 4.2 01/06/2023 CHLORIDE 105 01/06/2023 CO2 25 01/06/2023 BUN 15 01/06/2023 CREATSERUM 0.72 01/06/2023 GLUCOSE 97 10/18/2022 No results found for: HGBA1C I have reviewed each of the following unique test results as part of today's service: ECG: [facility] 10/17/2022 NSR Atrial Premature Beats Incomplete right bundle branch block Event Monitor: [facility] 02/23/2023 - 03/24/2023 Interpreting Physician: Electronically reviewed and confirmed by PALMA BAIN on 04/02/2023 2:32PM (CT). Physician Comments: sinus rhythm Summary: The patient's monitoring period was 02/23/2023 - 03/24/2023. Baseline sample showed Sinus Rhythm with a heart rate of 98.2 bpm. There were 0 critical, 0 serious, and 3 stable events that occurred. The report analysis of the critical, serious, stable and manually triggered events are listed below. Manually Detected Events: 1 Stable: Sinus Rhythm Flutter or Skipped Beats 1 Stable: Sinus Tachycardia w/Lead Loss None or Accidental Push Automatically Detected Events: 1 Stable: Sinus Rhythm Transthoracic Echocardiogram: [facility] 10/04/2022 Interpretation Summary: The study was technically difficult Left ventricular systolic function is normal. The estimated ejection fraction is 60%. Apical false tendon noted. Trivial mitral valve insufficiency. Trivial tricuspid valve insufficiency. Mild focal aortic valve calcification. Unable to estimated RV systolic pressure/pulmonary artery pressure due to technically difficult study. No evidence for diastolic dysfunction. Stress test: [facility] 10/05/2022 Nuc Stress 10/05/2022 Impression: 1. Technically adequate (percent predicted maximal heart rate greater than 85%) exercise tolerance test 2. Peak exercise ECG with no obvious ECG change 3. There were no cardiac dysrhythmias pretest, during exercise, or recovery 4. Nuclear images pending Myocardial Perfusion Study Impression: 1. Rest and stress SPECT Cardiolite nuclear imaging demonstrate a small area of subtle diminished tracer uptake near the apical segments without significant change between rest and stress appearing compatible with physiologic apical thinning with no myocardial perfusion changes considered diagnostic for associated stress-induced myocardial ischemia. 2. The gated Cardiolite study reports an LVEF of 66%. Stress Test: [facility] 10/18/2022 Interpretation Summary Overall, stress ecg is non-diagnostic for assessing ischemia since patient did not achieve 85% of maximal predicted heart rate. No significant QRS widening with exercise. Resting baseline ECG is normal sinus rhythm. Patient exercised using Gian protocol. No chest pain with exercise. Incomplete RBBB. QRS at rest ~115 ms. On exercise, there are no diagnostic ECG changes. No significant QRS widening with stress. Normal heart rate and blood pressure response to stress. Good exercise capacity for age and gender. Patient achieved 79% of maximal predicted heart rate. Max METS: 10.1. Overall, the stress ECG is negative for ischemia. EP Procedure - EPS/Ablation/Device: [facility] 01/09/2023 Conclusion FINDINGS: BASELINE NSR PROCEDURE: 1. AFIB ABLATION 2. ELECTROPHYSIOLOGY STUDY WITH AND WITHOUT DRUG INFUSION 3. INTRACARDIAC ECHOCARDIOGRAPHY ABLATION PROCEDURE: PATIENT UNDERWENT DOUBLE TRANSSEPTAL PUNCTURE UNDER ICE GUIDANCE WITH EXTENSIVE COMPLEX ELECTRO-ANATOMIC MAPPING OF THE PA, PV'S AND SVC. WE PERFORMED A SUCCESSFUL WIDE AREA CIRCUMFERENTIAL ABLATION (WACA) WITH CONFIRMATION OF PV ISOLATION WITH THE MULTIPOLAR MAPPING CATHETER. NO CHANGE IN PERICARDIAL SPACE PRE-, POST-PROCEDURE. CONFIRMATION OF LINES VIA PACING. ELECTROPHYSIOLOGY STUDY: 1. ABNORMAL SINUS NODE FUNCTION 2. NORMAL AVN AND INFRANODAL CONDUCTION 3. NORMAL DECREMENTAL-CONCENTRIC VA CONDUCTION WITHOUT AP CONDUCTION 4. INTACT ANTERGRADE CONDUCTION WITHOUT INDUCIBLE SVT ON ISUPREL. COMPLICATIONS: NONE RECOMMENDATIONS: 1. STOP FLECAINIDE IN TWO WEEKS 2. MEDROL DOSE ISABEL 3. NEXIUM FOR THIRTY DAYS 4. ROUTINE POST AF ABLATION FOLLOW UP 5. REMOVE SUTURES FROM GROIN IN 2 HOURS AND HOME TODAY IF MEETS CRITERIA In summary, Mr. Davila is managed today for the following issues: Paroxysmal atrial fibrillation The patient has a history of atrial fibrillation. He has undergone evaluation and care as noted. He presents for outpatient cardiovascular follow-up. He is pending outpatient electrophysiology follow-up as well. At the present time he is going to continue his current medical management. Depending upon his electrophysiology follow-up consideration will be given as to whether or not he will remain on his beta-shon therapy and his anticoagulant therapy. As noted above he may choose to remain on his beta-shon therapy based upon its positive impact on his concerns of his palpitations related to PVCs and his elevated heart rate. SVT (supraventricular tachycardia) The patient does have a history of SVT. His SVT was noninducible during his EPS study. He states he is still concerned about the possibility of recurrent SVT. Thus at the moment he will continue his medical therapy with his beta-shon unless otherwise directed by electrophysiology. If he has recurrent episodes of his tachycardia then he may need additional evaluation in attempt to correlate recurrent cardiac dysrhythmia such as SVT with his symptoms. This could, in the form of continued outpatient ambulatory monitoring or potentially an implantable loop recorder. PVC (premature ventricular contraction) The patient has a history of PVC s. He states he still notes intermittent palpitations. At the present time he will continue to monitor for any significant concerns. He will continue his low-dose beta-shon therapy with his metoprolol tartrate at 25 mg p.o. b.i.d.. Essential hypertension The patient has a history of hypertension. At the moment he will continue his current medical therapy. He was asked to monitor his blood pressure at home for any concerns that would warrant further adjustment of his antihypertensive regimen. Hyperlipidemia The patient has a history of hyperlipidemia. He states his recent lipid labs demonstrated his lipids to be under reasonably good control. He is on multiple lipid-lowering medications at this time which have included gemfibrozil at 600 mg p.o. b.i.d., had a vast a statin at 4 mg p.o. q.day, and evolocumab/repatha at 140 milligram/mL subcutaneous twice monthly. At the present time he will continue his current medical regimen. He is continuing to follow with his primary care physician with his lipid labs. I have ordered the following: No orders of the defined types were placed in this encounter. We will plan on Return in about 6 months (around 10/11/2023) for with me.. If I can be of any further assistance, please do not hesitate to contact me. Sincerely, Nnamdi Maya MD, [facility] Cardiovascular Medicine Patient has verified full name and . [facility] Note FINDINGS: BASELINE N SR PROCEDURE: 1. AFIB ABLATION 2. ELECTROPHYSIOLOGY STUDY WITH AND WITHOUT DRUG INFUSION 3. INTRACARDIAC ECHOCARDIOGRAPHY ABLATION PROCEDURE: PATIENT UNDERWENT DOUBLE TRANSSEPTAL PUNCTURE UNDER ICE GUIDANCE WITH EXTENSIVE COMPLEX ELECTRO-ANATOMIC MAPPING OF THE PA, PV'S AND SVC. WE PERFORMED A SUCCESSFUL WIDE AREA CIRCUMFERENTIAL ABLATION (WACA) WITH CONFIRMATION OF PV ISOLATION WITH THE MULTIPOLAR MAPPING CATHETER. NO CHANGE IN PERICARDIAL SPACE PRE-, POST-PROCEDURE. CONFIRMATION OF LINES VIA PACING. ELECTROPHYSIOLOGY STUDY: 1. ABNORMAL SINUS NODE FUNCTION 2. NORMAL AVN AND INFRANODAL CONDUCTION 3. NORMAL DECREMENTAL-CONCENTRIC VA CONDUCTION WITHOUT AP CONDUCTION 4. INTACT ANTERGRADE CONDUCTION WITHOUT INDUCIBLE SVT ON ISUPREL. COMPLICATIONS: NONE RECOMMENDATIONS: STOP FLECAINIDE IN TWO WEEKS 2. MEDROL DOSE ISABEL 3. NEXIUM FOR THIRTY DAYS 4. ROUTINE POST AF ABLATION FOLLOW UP 5. REMOVE SUTURES FROM GROIN IN 2 HOURS AND HOME TODAY IF MEETS CRITERIA Table formatting from the original result was not included. Images from the original result were not included. Jose G Davila EP Procedure - EPS/Ablation/Device Ordering Physician: MOODY CHRISTINE Order #: [id number] Study Date: 01/09/2023 Patient Information Name MRN Description Jose G Davila [id number] 57 y.o. male Physicians Panel Physicians Referring Physician Case Authorizing Physician Moody Christine MD (Primary) MD Marlin Toledo MD (Fellow) Procedures AFIB Ablation Pre Procedure Diagnosis Paroxysmal atrial fibrillation [I48.0] Post Procedure Diagnosis Paroxysmal atrial fibrillation [I48.0] Indications Paroxysmal atrial fibrillation [I48.0 (ICD-10-CM)] Conclusion FINDINGS: BASELINE NSR PROCEDURE: 1. AFIB ABLATION 2. ELECTROPHYSIOLOGY STUDY WITH AND WITHOUT DRUG INFUSION 3. INTRACARDIAC ECHOCARDIOGRAPHY ABLATION PROCEDURE: PATIENT UNDERWENT DOUBLE TRANSSEPTAL PUNCTURE UNDER ICE GUIDANCE WITH EXTENSIVE COMPLEX ELECTRO-ANATOMIC MAPPING OF THE PA, PV'S AND SVC. WE PERFORMED A SUCCESSFUL WIDE AREA CIRCUMFERENTIAL ABLATION (WACA) WITH CONFIRMATION OF PV ISOLATION WITH THE MULTIPOLAR MAPPING CATHETER. NO CHANGE IN PERICARDIAL SPACE PRE-, POST-PROCEDURE. CONFIRMATION OF LINES VIA PACING. ELECTROPHYSIOLOGY STUDY: 1. ABNORMAL SINUS NODE FUNCTION 2. NORMAL AVN AND INFRANODAL CONDUCTION 3. NORMAL DECREMENTAL-CONCENTRIC VA CONDUCTION WITHOUT AP CONDUCTION 4. INTACT ANTERGRADE CONDUCTION WITHOUT INDUCIBLE SVT ON ISUPREL. COMPLICATIONS: NONE RECOMMENDATIONS: STOP FLECAINIDE IN TWO WEEKS 2. MEDROL DOSE ISABEL 3. NEXIUM FOR THIRTY DAYS 4. ROUTINE POST AF ABLATION FOLLOW UP 5. REMOVE SUTURES FROM GROIN IN 2 HOURS AND HOME TODAY IF MEETS CRITERIA Consent The procedure was explained including the potential risks of infection, heart perforation, re-operation, and other risks pertinent to procedure. Informed consent and permission to proceed was given. Site Preparation On the day of the procedure, the patient was brought to the operating room and the groin prepped with chloraprep. Site prepped by Michelle Valdez RN. The patient was draped in the usual sterile manner. Site prepped by Naya Wilde RN. Atrial Pacing Atrial site studied: left atrium. Collection conditions: baseline. Longest SNRT: 1830 ms. Sinus cycle length: 600 ms. CSNRT: 1230 ms. AV Wenckebach interval: 400 ms. Atrial site studied: high right atrium. Collection conditions: post drug infusion. Drug administered: isoproterenol. AV Wenckebach interval: [address] cycle length: 500 ms. Fast pathway AVERP: 190 ms. Ventricular Pacing Site paced: left ventricle. Collection conditions: baseline. First Drive Cycle: Drive cycle length: 600 ms. S2 VERP: 350 ms. Site paced: right ventricle apex. Collection conditions: during drug infusion. Drug administered: isoproterenol. VA block cycle length: 400 ms. Ventriculoatrial dissociation. Ablation Ablation Site: pulmonary veins. Arrhythmia Type: atrial fibrillation. System used: [place] (3D). Catheter successful. Energy type: radio frequency. Irrigation method: open irrigation cool tip. The ablation procedure was successful. Intracardiac ultrasound was used. Transseptal puncture was used. Temperature achieved: 24 C. Energy delivered: 47 jim. Max jim: 52 jim. Impedance: 110 ohms. Duration of energy delivered: 1037 seconds. Num of energy applications: 81. There were no complications during the procedure. There is no junctional rhythm during energy delivery. ACT 01/09/23 0717--01/09/23 1023 before discharge Date/Time Type ACT Out of Range 01/09/23 08:32:01 Arterial ? yes ACT: Out of range. at 01/09/23 0832 01/09/23 08:55:08 Venous ? yes ACT: Out of range. at 01/09/23 0855 01/09/23 09:19:49 Venous ? yes ACT: Out of range. at 01/09/23 0919 01/09/23 09:43:35 Venous 347 seconds (more content not included)... [facility] 01-09-2023 Note Formatting of this n ote might be different from the original. Patient seen and examined. Right groin site stable after ambulation. Lungs CTA. Heart tones regular without rub. Voiding without difficulty. Pt provided with follow up video visit with Elba Vailefe tomorrow 01/10/2023 at 8:00 AM. Patient verbalized understanding of all discharge instructions. [facility] 01-09-2023 Miscellaneous Notes Patient seen and examined. Right groin site stable after ambulation. Lungs CTA. Heart tones regular without rub. Voiding without difficulty. Pt provided with follow up video visit with Elba Roderick tomorrow 01/10/2023 at 8:00 AM. Patient verbalized understanding of all discharge instructions. Arrived to patient bedside to assess patient post ablation. Patient sitting up in bed eating in no acute distress. Upon discussion of recovery progress, patient reported having a halo of light in his right peripheral field of vision. He denies additional symptoms including loss of vision, weakness, NEGRETE. Bedside neuro exam negative for acute deficit or change from baseline. Discussed with Dr. Christine. Neuro consult placed. 12:[address] Ospina with Neurology. 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 Patient reports resolution of symptoms with no additional questions or concerns. Patient to be discharged home for routine follow up. BRIGHT Contreras documented in this encounter [facility] 01-09-2023 Note Formatting of this n ote might be different from the original. Arrived to patient bedside to assess patient post ablation. Patient sitting up in bed eating in no acute distress. Upon discussion of recovery progress, patient reported having a halo of light in his right peripheral field of vision. He denies additional symptoms including loss of vision, weakness, NEGRETE. Bedside neuro exam negative for acute deficit or change from baseline. Discussed with Dr. Christine. Neuro consult placed. 12:[address] Ospina with Neurology. 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 Patient reports resolution of symptoms with no additional questions or concerns. Patient to be discharged home for routine follow up. BRIGHT Contreras [facility] 01-09-2023 Hospital Discharge instructions BRIGHT Mcmullen - 01/09/2023 7:12 AM EDT Post Ablation Activity Your activity is restricted only as indicated by your physician. Please refer to education for ablation and other care recommendations. - No driving for 24 hours - Keep incision dry - Limit bending at the waist for 48 hours - May resume regular activity in 1-2 weeks unless otherwise notified - Return to work in 1 week - No tub baths or hot tub for 2 weeks or until groin site is healed - No lifting greater than 10-15 pounds for 1 week. Rest for 24 hours after you are home. You should have someone with you to help you the first night you are home. DO NOT drive for 24 hours. DO NOT make any important decisions for 24 hours. DO NOT work around the stove, machinery or power equipment for 24 hours. BRIGHT Mcmullen - 01/09/2023 7:12 AM EDT Diet: Your doctor has recommended that you follow these diet instructions at home. Refer to the patient education materials you received during your hospital stay. If you would like more nutrition counseling, ask your doctor about making an appointment with an outpatient dietitian. Heart Healthy Diet to promote heart health. Choose healthy fats and oils such as canola or olive oil. Limit high cholesterol foods. Avoid added salt and caffeine in your foods. Controlled Carbohydrate Diet This diet controls carbohydrate intake to help manage and maintain consistent blood glucose levels. Simple sugars are limited and carbohydrate intake is balanced throughout the day. Avoid adding salt to your food and use heart healthy fats such as canola or olive oil. BRIGHT Mcmullen - 01/09/2023 7:12 AM EDT Images from the original note were not included. NOTIFY PHYSICIAN BLEEDING/BRUISING -If severe bleeding, apply pressure -Increased bleeding from site -Increased bruising or hematoma Chest pain or shortness of breath Respiratory Changes Call your doctor or nurse if you have shortness of breath that gets worse -Cough that gets worse -Coughing up blood Stroke Symptoms Call 911 if you suddenly have any of these signs of a stroke: -Numbness or muscle weakness -Trouble swallowing -Problems talking -Dizziness or feeling unsteady -Severe headache -Confusion SYMPTOMS OF DVT DVT = Deep Vein Thrombus, or Blood Clot -any tender, swollen, or reddened areas from your groin to your heels. -numbness or tingling in groin or calf -the skin on your leg looks pale or blue or it feels cold to touch -any shortness of breath -chest pain -fever or chills NAUSEA: When you are nauseated, you may feel weak and sweaty and notice a lot of saliva in your mouth. Nausea often leads to vomiting. Most of the time you do not need to worry about nausea and vomiting, but they can be signs of other illnesses. The doctor has checked you carefully, but problems can develop later. If you notice any problems or new symptoms, get medical treatment right away. Follow-up care is a lacey part of your treatment and safety. Be sure to make and go to all appointments, and call your doctor if you are having problems. It's also a good idea to know your test results and keep a list of the medicines you take. How can you care for yourself at home? To prevent dehydration, drink plenty of fluids, enough so that your urine is light yellow or clear like water. Choose water and other caffeine-free clear liquids until you feel better. If you have kidney, heart, or liver disease and have to limit fluids, talk with your doctor before you increase the amount of fluids you drink. Rest in bed until you feel better. When you are able to eat, try clear soups, mild foods, and liquids until all symptoms are gone for 12 to 48 hours. Other good choices include dry toast, crackers, cooked cereal, and gelatin dessert, such as Jell-O. When should you call for help? Call 911 anytime you think you may need emergency care. For example, call if: You passed out (lost consciousness) Call your doctor now or seek immediate medical care if: You have symptoms of dehydration, such as: Dry eyes and a dry mouth Passing only a little dark urine Feeling thirstier than usual You have new or worsening belly pain You have a new or higher fever You vomit blood or what looks like coffee grounds Watch closely for changes in your health, and be sure to contact your doctor if: You have on going nausea and vomiting Your vomiting gets worse Your vomiting last longer than 2 days You are not getting better as expected Where can you learn more? Go to https://www.[employer].net/osumych art. BRIGHT Mcmullen - 01/09/2023 7:12 AM EDT Catheter site care You can remove your bandages the day after the procedure. You may shower 24 to 48 hours after the procedure, if your doctor okays it. Pat the incision dry. Do not soak the catheter site until it is healed. Don't take a bath for 1 week, or until your doctor tells you it is okay. Watch for bleeding from the site. A small amount of blood (up to the size of a quarter) on the bandage can be normal. If you are bleeding, lie down and press on the area for 15 minutes to try to make it stop. If the bleeding does not stop, call your doctor or seek immediate medical care. documented in this encounter [facility] 01-09-2023 History and physical note Chief Complaint Afib JOSE Davila is a 57 y.o. male with history of SVT, PVCs, HTN, HLD, MONROE, gastric mass, IBS who was recently transferred to [facility] September 2022 for palpitations/recurrent SVT. Vagal maneuvers and adenosine were trialed which led to slowing of the tachycardia but not with complete resolution. EP was consulted and Flecainide was initiated at 100mg twice daily along with Apixaban for planned outpatient AF ablation. He presents today for planned procedure. He reports an episode of tachycardia about a week ago in HR 120s with no symptoms. Today he has no complaints, he denies CP, SOB, palpitations, lightheadedness, dizziness. Patient Active Problem List Diagnosis SVT (supraventricular tachycardia) Paroxysmal atrial fibrillation Past Medical History: Diagnosis Date Anxiety and depression Arrhythmia Chronic eczema Gastric mass following with GI; monitoring (next EGD 10/2022) GERD (gastroesophageal reflux disease) High triglycerides HLD (hyperlipidemia) HTN (hypertension) Irritable bowel syndrome with constipation MONROE (obstructive sleep apnea) PVC's (premature ventricular contractions) SVT (supraventricular tachycardia) Past Surgical History: Procedure Laterality Date ARTHROSCOPY KNEE W/ MENISCUS REPAIR Left 2005 Medications Prior to Admission Medication Sig Dispense Refill Last Dose Amitriptyline 25 MG tablet Take 1 tablet by mouth At bedtime. 01/08/2023 at 2014 apixaban 5 MG tablet Take 1 tablet by mouth every 12 hours. 60 tablet 1 01/08/2023 at 2014 Dupilumab (Dupixent) 300 MG/2ML Solution Pen-injector Inject under the skin. Every 2 weeks injections- for eczema Past Week Evolocumab (Repatha) 140 MG/ML Solution Prefilled Syringe injection Inject under the skin. Every 2 weeks injections- high cholesterol Past Month Flecainide 100 MG tablet Take 1 tablet by mouth every 12 hours. 60 tablet 1 01/08/2023 at 2014 Gemfibrozil 600 MG tablet Take 1 tablet by mouth 2 times daily. 01/08/2023 at 2014 Loratadine 10 MG capsule Take by mouth. 01/08/2023 at 2014 Metoprolol 50 MG tab regular release Take 1 tablet by mouth 2 times daily. 01/08/2023 at 2014 Multiple Vitamins-Minerals (Complete) tablet Take 1 tablet by mouth daily. 01/08/2023 at 2014 Pitavastatin Calcium 4 MG tablet Take by mouth. 01/08/2023 at 2015 Allergies Allergen Reactions Atorvastatin Myalgia Cat Dander Grass [*Seasonal] pollen Latex Lisinopril Cough Social History Socioeconomic History Marital status: Tobacco Use Smoking status: Former Types: Cigarettes Quit date: 10/23/2004 Years since quittin.2 Smokeless tobacco: Never Substance and Sexual Activity Alcohol use: Yes Alcohol/week: 4.0 standard drinks Types: 2 Glasses of wine, 2 Cans of beer per week Comment: couple drinks daily (wine/beer/ or bourbon) Drug use: Not Currently Family History Problem Relation Age of Onset Other - Specify Mother valve replacement Diabetes Mother Coronary Artery Disease Father CABG, multiple stents Cancer- Other Father Referring MD: Francesco PCP Nnamdi CHOU MD: Emmett Anticoagulation: Eliquis Has the patient missed any doses of anticoagulation. Held Eliquis this am as instructed When was the last dose taken. 01/08/2023 PM [id number]- Vasc score: 1 ( HTN) Previous antiarrythmic medications: Flecainide Reason stopped: currently taking Prior Cardiac testing: CT 01/06/2023 PULMONARY VEIN LEFT ATRIAL APPENDAGE: No Thrombus LEFT SIDE MEASUREMENTS UPPER DIMENSIONS: 1.5 cm UPPER DIMENSIONS (2): 1.1 cm LOWER DIMENSIONS: 1.6 cm LOWER DIMENSIONS (2): 0.8 cm RIGHT SIDE MEASUREMENTS UPPER DIMENSIONS: 1.6 cm UPPER DIMENSIONS (2): 1.3 cm LOWER DIMENSIONS: 2 cm LOWER DIMENSIONS (2): 1.6 cm Results for orders placed in visit on 12/28/22 ECHOCARDIOGRAM (OUTSIDE) (Final) 10/04/2022 LVEF 60% Normal valvular function LA normal Review of System Constitutional: Negative for fever, weight loss, weight gain and malaise/fatigue. Skin: Negative. HEENT: Negative. Cardiovascular: Negative for leg swelling. Negative for palpitations, chest pain, dyspnea, orthopnea, claudication, edema and PND. Negative for lightheadedness or syncope. Respiratory: Negative for cough. Is not experiencing shortness of breath currently. Gastrointestinal: Negative for abdominal pain, nausea, vomiting, diarrhea, melena, and constipation. Endocrine: Negative for polyuria, polydipsia, heat or cold intolerance. Genitourinary: Negative for frequency or burning with urination. Past history of BPH or difficult catheterization? NO. Neurological: Negative for dizziness and headaches. Psychiatric: Negative for depression, nervous/anxious and substance abuse. Telemetry/EKG: SR BP 146/83 (BP Location: Right arm, BP Position: Lying) Pulse 67 Temp 97.9 F (36.6 C) (Oral) Resp 24 Ht 1.854 m (6' 1 ) Wt 108.9 kg (240 lb) SpO2 97% BMI 31.66 kg/m Smoking Status Former Body mass index is 31.66 kg/m . Physical Exam General appearance - alert, LOC x 3, well appearing, and in no distress Neck - supple, no significant adenopathy, carotids upstroke normal bilaterally without bruits. Chest - lungs clear to auscultation, breath sounds equal and symmetric, no rhonchi, rales or wheezes Heart - regular rate and rhythm, S1 and S2 normal, no murmurs, clicks, gallops or rubs, normal bilateral carotid upstroke without bruits, no JVD Abdomen - soft, nontender, nondistended, no masses or organomegaly, bowel sounds present x 4 quadrants. Extremities - peripheral pulses normal, no pedal edema, no clubbing or cyanosis Skin - normal coloration and turgor, no rashes, no suspicious skin lesions noted Lab Results Component Value Date SODIUM 142 01/06/2023 POTASSIUM 4.2 01/06/2023 CHLORIDE 105 01/06/2023 CO2 25 01/06/2023 BUN 15 01/06/2023 CREATSERUM 0.72 01/06/2023 GLUCOSE 97 10/18/2022 Lab Results Component Value Date WBC 6.59 01/06/2023 HGB 16.1 01/06/2023 HCT 48.7 01/06/2023 PLATELET 289 01/06/2023 MCV 90.5 01/06/2023 INR Date Value Ref Range Status 01/09/2023 1.0 0.9 - 1.1 Final 10/15/2022 1.0 0.9 - 1.1 Final Assessment and Plan -Okay to proceed with AF ablation under anesthesia. -Patient has been NPO since midnight. -Labs stable -Last dose of Eliquis 01/08/2023 PM Associated attestation - Moody Christine MD - 01/09/2023 7:53 AM EDT Patient EP plan progressing well. I discussed plan with patient and answered questions. We discussed the procedure, alternatives and risks and the patient wishes to proceed in this direction. Physical Exam: Constitutional: Alert and oriented x 3 Eyes: Extraocular motions are normal. Musculoskeletal: No edema. Neurological: Nonfocal Skin: Skin is warm and dry. Psychiatric: Affect normal. I have independently seen and examined the patient and agree with the history, physicial, assessment and plan of the certified nurse practitioner as addended by me. Moody Christine MD01/09/2023 [facility] 01-09-2023 History and physical note Chief Complaint Afib HPI Jose G Davila is a 57 y.o. male with history of SVT, PVCs, HTN, HLD, MONROE, gastric mass, IBS who was recently transferred to [facility] September 2022 for palpitations/recurrent SVT. Vagal maneuvers and adenosine were trialed which led to slowing of the tachycardia but not with complete resolution. EP was consulted and Flecainide was initiated at 100mg twice daily along with Apixaban for planned outpatient AF ablation. He presents today for planned procedure. He reports an episode of tachycardia about a week ago in HR 120s with no symptoms. Today he has no complaints, he denies CP, SOB, palpitations, lightheadedness, dizziness. Patient Active Problem List Diagnosis SVT (supraventricular tachycardia) Paroxysmal atrial fibrillation Past Medical History: Diagnosis Date Anxiety and depression Arrhythmia Chronic eczema Gastric mass following with GI; monitoring (next EGD 10/2022) GERD (gastroesophageal reflux disease) High triglycerides HLD (hyperlipidemia) HTN (hypertension) Irritable bowel syndrome with constipation MONROE (obstructive sleep apnea) PVC's (premature ventricular contractions) SVT (supraventricular tachycardia) Past Surgical History: Procedure Laterality Date ARTHROSCOPY KNEE W/ MENISCUS REPAIR Left 2005 Medications Prior to Admission Medication Sig Dispense Refill Last Dose Amitriptyline 25 MG tablet Take 1 tablet by mouth At bedtime. 01/08/2023 at 2014 apixaban 5 MG tablet Take 1 tablet by mouth every 12 hours. 60 tablet 1 01/08/2023 at 2014 Dupilumab (Dupixent) 300 MG/2ML Solution Pen-injector Inject under the skin. Every 2 weeks injections- for eczema Past Week Evolocumab (Repatha) 140 MG/ML Solution Prefilled Syringe injection Inject under the skin. Every 2 weeks injections- high cholesterol Past Month Flecainide 100 MG tablet Take 1 tablet by mouth every 12 hours. 60 tablet 1 01/08/2023 at 2014 Gemfibrozil 600 MG tablet Take 1 tablet by mouth 2 times daily. 01/08/2023 at 2014 Loratadine 10 MG capsule Take by mouth. 01/08/2023 at 2014 Metoprolol 50 MG tab regular release Take 1 tablet by mouth 2 times daily. 01/08/2023 at 2014 Multiple Vitamins-Minerals (Complete) tablet Take 1 tablet by mouth daily. 01/08/2023 at 2014 Pitavastatin Calcium 4 MG tablet Take by mouth. 01/08/2023 at 2014 Allergies Allergen Reactions Atorvastatin Myalgia Cat Dander Grass [*Seasonal] pollen Latex Lisinopril Cough Social History Socioeconomic History Marital status: Tobacco Use Smoking status: Former Types: Cigarettes Quit date: 10/23/2004 Years since quittin.2 Smokeless tobacco: Never Substance and Sexual Activity Alcohol use: Yes Alcohol/week: 4.0 standard drinks Types: 2 Glasses of wine, 2 Cans of beer per week Comment: couple drinks daily (wine/beer/ or bourbon) Drug use: Not Currently Family History Problem Relation Age of Onset Other - Specify Mother valve replacement Diabetes Mother Coronary Artery Disease Father CABG, multiple stents Cancer- Other Father Referring MD: Francesco CHOU MD: Emmett Anticoagulation: Eliquis Has the patient missed any doses of anticoagulation. Held Eliquis this am as instructed When was the last dose taken. 01/08/2023 PM [id number]- Vasc score: 1 ( HTN) Previous antiarrythmic medications: Flecainide Reason stopped: currently taking Prior Cardiac testing: CT 01/06/2023 PULMONARY VEIN LEFT ATRIAL APPENDAGE: No Thrombus LEFT SIDE MEASUREMENTS UPPER DIMENSIONS: 1.5 cm UPPER DIMENSIONS (2): 1.1 cm LOWER DIMENSIONS: 1.6 cm LOWER DIMENSIONS (2): 0.8 cm RIGHT SIDE MEASUREMENTS UPPER DIMENSIONS: 1.6 cm UPPER DIMENSIONS (2): 1.3 cm LOWER DIMENSIONS: 2 cm LOWER DIMENSIONS (2): 1.6 cm Results for orders placed in visit on 12/28/22 ECHOCARDIOGRAM (OUTSIDE) (Final) 10/04/2022 LVEF 60% Normal valvular function LA normal Review of System Constitutional: Negative for fever, weight loss, weight gain and malaise/fatigue. Skin: Negative. HEENT: Negative. Cardiovascular: Negative for leg swelling. Negative for palpitations, chest pain, dyspnea, orthopnea, claudication, edema and PND. Negative for lightheadedness or syncope. Respiratory: Negative for cough. Is not experiencing shortness of breath currently. Gastrointestinal: Negative for abdominal pain, nausea, vomiting, diarrhea, melena, and constipation. Endocrine: Negative for polyuria, polydipsia, heat or cold intolerance. Genitourinary: Negative for frequency or burning with urination. Past history of BPH or difficult catheterization? NO. Neurological: Negative for dizziness and headaches. Psychiatric: Negative for depression, nervous/anxious and substance abuse. Telemetry/EKG: SR BP 146/83 (BP Location: Right arm, BP Position: Lying) Pulse 67 Temp 97.9 F (36.6 C) (Oral) Resp 24 Ht 1.854 m (6' 1 ) Wt 108.9 kg (240 lb) SpO2 97% BMI 31.66 kg/m Smoking Status Former Body mass index is 31.66 kg/m . Physical Exam General appearance - alert, LOC x 3, well appearing, and in no distress Neck - supple, no significant adenopathy, carotids upstroke normal bilaterally without bruits. Chest - lungs clear to auscultation, breath sounds equal and symmetric, no rhonchi, rales or wheezes Heart - regular rate and rhythm, S1 and S2 normal, no murmurs, clicks, gallops or rubs, normal bilateral carotid upstroke without bruits, no JVD Abdomen - soft, nontender, nondistended, no masses or organomegaly, bowel sounds present x 4 quadrants. Extremities - peripheral pulses normal, no pedal edema, no clubbing or cyanosis Skin - normal coloration and turgor, no rashes, no suspicious skin lesions noted Lab Results Component Value Date SODIUM 142 01/06/2023 POTASSIUM 4.2 01/06/2023 CHLORIDE 105 01/06/2023 CO2 25 01/06/2023 BUN 15 01/06/2023 CREATSERUM 0.72 01/06/2023 GLUCOSE 97 10/18/2022 Lab Results Component Value Date WBC 6.59 01/06/2023 HGB 16.1 01/06/2023 HCT 48.7 01/06/2023 PLATELET 289 01/06/2023 MCV 90.5 01/06/2023 INR Date Value Ref Range Status 01/09/2023 1.0 0.9 - 1.1 Final 10/15/2022 1.0 0.9 - 1.1 Final Assessment and Plan -Okay to proceed with AF ablation under anesthesia. -Patient has been NPO since midnight. -Labs stable -Last dose of Eliquis 01/08/2023 PM Associated attestation - Moody Christine MD - 01/09/2023 7:53 AM EDT Patient EP plan progressing well. I discussed plan with patient and answered questions. We discussed the procedure, alternatives and risks and the patient wishes to proceed in this direction. Physical Exam: Constitutional: Alert and oriented x 3 Eyes: Extraocular motions are normal. Musculoskeletal: No edema. Neurological: Nonfocal Skin: Skin is warm and dry. Psychiatric: Affect normal. I have independently seen and examined the patient and agree with the history, physicial, assessment and plan of the certified nurse practitioner as addended by me. Moody Christine MD01/09/2023 documented in this encounter [facility] 10-28-2022 Miscellaneous Notes Patient left voicemail on Dr. Liz Black's office phone stating that he wants to hold on repeat upper scope until the summer. He is on blood thinner for upcoming heart ablation and wants to wait for that. [phone] Radha Puente documented in this encounter [facility] 10-18-2022 Miscellaneous Notes Discharge instructions reviewed with patient by RN, all questions answered. Patient verbalized understanding. IV's dc'd per policy with no difficulty and catheter tip intact. Telemetry dc'd. VS stable at time of discharge. Patient being discharged to Home by car with spouse. No patient belongings left at bedside. Patient dc'd with own copy of discharge instructions. Eliquis 30 days supply received from Janusz Weimob and given to pt. Pt verbalized understanding. 10/18/22 1513 Medication Prior Auth Medication Requiring Prior Auth APIXABAN Dosage Form Tablet Intervention spoke with team;spoke with pharmacist Outcome Prior Auth Started Medication PA Process Complete? In Progress Jose G Davila Lacey: BQCMRGER Yinka AMADOR Discharge instructions reviewed with patient by RN, all questions answered. Patient verbalized understanding. IV's dc'd per policy with no difficulty and catheter tip intact. Telemetry dc'd. VS stable. Problem: Patient Care Overview Goal: Plan of Care Review 10/18/20221350 by Awa Fontenot RN Outcome: Adequate for Discharge 10/18/2022930 by Awa Fontenot RN Outcome: Progressing Toward Goal 10/18/2022930 by Awa Fontenot RN Outcome: Ongoing Goal: Individualization & Mutuality 10/18/20221350 by Awa Fontenot RN Outcome: Adequate for Discharge 10/18/2022930 by Awa Fontenot RN Outcome: Progressing Toward Goal 10/18/2022930 by Awa Fontenot RN Outcome: Ongoing Goal: Discharge Needs Assessment 10/18/20221350 by Awa Fontenot RN Outcome: Adequate for Discharge 10/18/2022930 by Awa Fontenot RN Outcome: Progressing Toward Goal 10/18/2022930 by Awa Fontenot RN Outcome: Ongoing Goal: Interdisciplinary Rounds/Family Conf 10/18/2022 135 by Awa Fontenot RN Outcome: Adequate for Discharge 10/18/2022930 by Awa Fontenot RN Outcome: Progressing Toward Goal 10/18/2022930 by Awa Fontenot RN Outcome: Ongoing Problem: Arrhythmia/Dysrhythmia (Symptomatic) (Adult) Goal: Signs and Symptoms of Listed Potential Problems Will be Absent, Minimized or Managed (Arrhythmia/Dysrhythmia) Description: Signs and symptoms of listed potential problems will be absent, minimized or managed by discharge/transition of care (reference Arrhythmia/Dysrhythmia (Symptomatic) (Adult) CPG). 10/18/2022 135 by Awa Fontenot RN Outcome: Adequate for Discharge 10/18/2022930 by Awa Fontenot RN Outcome: Progressing Toward Goal 10/18/2022930 by Awa Fontenot RN Outcome: Ongoing Problem: Patient Care Overview Goal: Plan of Care Review 10/18/2022930 by Awa Fontenot RN Outcome: Progressing Toward Goal 10/18/2022930 by Awa Fontenot RN Outcome: Ongoing Goal: Individualization & Mutuality 10/18/2022930 by Awa Fontenot RN Outcome: Progressing Toward Goal 10/18/2022930 by Awa Fontenot RN Outcome: Ongoing Goal: Discharge Needs Assessment 10/18/2022930 by Awa Fontenot RN Outcome: Progressing Toward Goal 10/18/2022930 by Awa Fontenot RN Outcome: Ongoing Goal: Interdisciplinary Rounds/Family Conf 10/18/2022930 by Awa Fontenot RN Outcome: Progressing Toward Goal 10/18/2022930 by Awa Fontenot RN Outcome: Ongoing Problem: Arrhythmia/Dysrhythmia (Symptomatic) (Adult) Goal: Signs and Symptoms of Listed Potential Problems Will be Absent, Minimized or Managed (Arrhythmia/Dysrhythmia) Description: Signs and symptoms of listed potential problems will be absent, minimized or managed by discharge/transition of care (reference Arrhythmia/Dysrhythmia (Symptomatic) (Adult) CPG). 10/18/2022930 by Awa Fontenot RN Outcome: Progressing Toward Goal 10/18/2022930 by Awa Fontenot RN Outcome: Ongoing Problem: Patient Care Overview Goal: Interdisciplinary Rounds/Family Conf Outcome: Met This Shift Problem: Arrhythmia/Dysrhythmia (Symptomatic) (Adult) Goal: Signs and Symptoms of Listed Potential Problems Will be Absent, Minimized or Managed (Arrhythmia/Dysrhythmia) Description: Signs and symptoms of listed potential problems will be absent, minimized or managed by discharge/transition of care (reference Arrhythmia/Dysrhythmia (Symptomatic) (Adult) CPG). Outcome: Met This Shift Problem: Patient Care Overview Goal: Plan of Care Review Outcome: Ongoing Goal: Individualization & Mutuality Outcome: Ongoing Goal: Discharge Needs Assessment Outcome: Ongoing Problem: Arrhythmia/Dysrhythmia (Symptomatic) (Adult) Goal: Signs and Symptoms of Listed Potential Problems Will be Absent, Minimized or Managed (Arrhythmia/Dysrhythmia) Description: Signs and symptoms of listed potential problems will be absent, minimized or managed by discharge/transition of care (reference Arrhythmia/Dysrhythmia (Symptomatic) (Adult) CPG). Outcome: Met This Shift Problem: Patient Care Overview Goal: Plan of Care Review Outcome: Ongoing Goal: Individualization & Mutuality Outcome: Ongoing Goal: Discharge Needs Assessment Outcome: Ongoing Goal: Interdisciplinary Rounds/Family Conf Outcome: Ongoing Plan of care reviewed w/ patient and physician. Vital signs completed per protocol. Monitoring intake and output q8h. Assessing pain q4h and medicate prn. Obtaining daily weights. Labs completed per protocol and will report any abnormal values to physician. Per order, Diltiazem gtts stopped this AM & daily EKG completed for Flecainide load. Per EP, plan for Treadmill ST 10/18 followed by outpatient ablation. Will continue to monitor. Katherin Geiger RN 10/17/2022 1024 Problem: Patient Care Overview Goal: Interdisciplinary Rounds/Family Conf Outcome: Met This Shift Problem: Arrhythmia/Dysrhythmia (Symptomatic) (Adult) Goal: Signs and Symptoms of Listed Potential Problems Will be Absent, Minimized or Managed (Arrhythmia/Dysrhythmia) Description: Signs and symptoms of listed potential problems will be absent, minimized or managed by discharge/transition of care (reference Arrhythmia/Dysrhythmia (Symptomatic) (Adult) CPG). Outcome: Met This Shift Problem: Patient Care Overview Goal: Plan of Care Review Outcome: Ongoing Goal: Individualization & Mutuality Outcome: Ongoing Goal: Discharge Needs Assessment Outcome: Ongoing Problem: Patient Care Overview Goal: Plan of Care Review Outcome: Ongoing Goal: Individualization & Mutuality Outcome: Ongoing Problem: Arrhythmia/Dysrhythmia (Symptomatic) (Adult) Goal: Signs and Symptoms of Listed Potential Problems Will be Absent, Minimized or Managed (Arrhythmia/Dysrhythmia) Description: Signs and symptoms of listed potential problems will be absent, minimized or managed by discharge/transition of care (reference Arrhythmia/Dysrhythmia (Symptomatic) (Adult) CPG). Outcome: Ongoing Plan of care reviewed w/ patient, nursing, and physician. Vital signs completed per protocol. Monitoring intake and output q8h. Assessing pain q4h and medicate prn. Obtaining daily weights. Labs completed per protocol and will report any abnormal values to physician. Patient on Diltiazem gtts currently at 5 mg/hr. Will continue to monitor. Katherin Geiger RN 10/16/2022 1429 I certify that this patient requires inpatient services at this time. I anticipate the expected length of stay will include at least two midnights. Inpatient services are due to the following medical concerns SVT refractory to oral medications. Failed outpatient treatment including oral beta shon, oral cardizem. Current treatment plan includes cardizem gtt, EP consult. Plans for post hospitalization care will be discharge to home. Problem: Patient Care Overview Goal: Plan of Care Review Outcome: Ongoing Flowsheets (Taken 10/16/2022 0520) Plan Of Care Reviewed With: patient Progress: progress towards functional goals is fair Note: Vital signs completed per protocol. Monitoring intake and output q8h. Assessing pain q4h and medicate prn. Obtaining daily weights. Labs completed per protocol and will report any abnormal values to physician. Will continue hourly rounding per hospital protocol. Plan of care reviewed and updated with patient and patient demonstrates understanding. Problem: Arrhythmia/Dysrhythmia (Symptomatic) (Adult) Goal: Signs and Symptoms of Listed Potential Problems Will be Absent, Minimized or Managed (Arrhythmia/Dysrhythmia) Description: Signs and symptoms of listed potential problems will be absent, minimized or managed by discharge/transition of care (reference Arrhythmia/Dysrhythmia (Symptomatic) (Adult) CPG). Outcome: Ongoing Flowsheets (Taken 10/16/2022 0520) Problems Assessed (Arrhythmia/Dysrhythmia): electrophysiological conduction defect Problems Present (Arrhythmia/Dysrhythmia): electrophysiological conduction defect Note: Continuous cardiac monitoring as ordered. ECGs obtained per protocol. Electrolytes replaced with prn orders when appropriate. Antiarrhythmic given as scheduled. EP consult. Patient on diltiazem gtt. On admission to [facility] @ 1950, from an [facility] ED, a dual RN initial assessment of skin condition was performed by Harper Valentin RN and Catina Booker RN Skin Assessment: WDL Gus Score: 22 Called #[phone] and received report from KENNEDY Pacheco. Katherin Geiger RN 10/15/2022 1401 documented in this encounter [facility] 10-18-2022 Note Formatting of this n ote might be different from the original. Discharge instructions reviewed with patient by RN, all questions answered. Patient verbalized understanding. IV's dc'd per policy with no difficulty and catheter tip intact. Telemetry dc'd. VS stable at time of discharge. Patient being discharged to Home by car with spouse. No patient belongings left at bedside. Patient dc'd with own copy of discharge instructions. Eliquis 30 days supply received from [facility] and given to pt. Pt verbalized understanding. [facility] 10-18-2022 History of Present illness Narrative Focused Assessment for Discharge Planning Patient is here for SVT. Initial Discharge Planning Anticipated discharge disposition: Home Transportation Available for Discharge: Private Vehicle, Family or Friend Anticipated DME: none Anticipated Services at Discharge: Outpatient follow up Patient Assessment Completed: Focused Advanced Care Planning Assessment Advanced Care Planning Has the patient completed Advance Directives?: Not Completed Referral to Social Work for Advance Care Planning? : Patient Declines HCPOA Agent(s): N/A Legal Next of Kin: 1Svitlana Davila spouse [phone] Financial Resources Insurance: Yes Prescription Coverage: Yes Resources Needed: No Resources Provided: N/A Living Environment and Support System Patient resides independently with spouse prior to hospital stay. Patient Resources Prior to Admission Post-acute Services: no Community Resources: no DME: yes - cpap Patient's goal for discharge is home with outpatient follow up. PA attempted and denied for eliquis. Patient's insurance will change on October 23, 2022. [facility] filled prescription with free eliquis trial card. Patient stated he was willing to pay for eliquis and aware of the cost ($500 approx) if he continued to need this medication. Maryjane DIAZ G[employer] WATER METER INSTALLER Clinical Senior Environmental Engineer [facility] Images from the original note were not included. [facility] ([facility] Note: [facility] received the following discharge prescription(s): Total cost is $0.00. I have reviewed the Discharge Rx Reconciliation Report. Discharge date was confirmed with the IS expected discharge date. The discharge prescription(s) will be delivered to the patient on 10/18/2022. Aram Torres RPh,PharmD [facility] [phone] [facility] [phone] [facility] [phone] Bedside delivery [phone] [facility] Progress Note Patient: Jose G Davila, : 1965, Impression / Plan Jose G Davila is a 56yo male with pmhx of PVCs, HTN/HLD, MONROE, Eczema, IBS-C, gastric mass who presented from [place] ED with SVT. #Recurrent SVTs: C/o palpitation, denies chest pain or SOB - Currently on dilt drip, NSR, will continue overnight - Failed outpatient treatment including oral beta shon, oral cardizem - Check ECG, monitor tele - Last Echo (10/04/22) EF 60%, Trivial mitral valve insufficiency, Trivial tricuspid valve insufficiency, Mild focal aortic valve calcification. - Nuc Stress (10/05/22) normal (full impression below) - EP consulted - started on flecainide 100 mg po q12h today - treadmill stress EKG in am - apixaban 5 mg po bid - further mgmt by EP in community - EKG/Drug monitoring per EP - Continue Metoprolol BID - Monitor and replete electrolytes #HTN: continue amlodipine and lopressor #HLD: continue statin and fenofibrate; also on Evolocumab every 2 weeks injection #Ezcema: Dupixent q2 weeks injection #Anxiety: mood stable, continue amitriptyline #MONROE: nocturnal cpap #IBS-C: Miralax prn #Stomach Lesion: EGD/Biopsy 12/2021 negative (full results below). He follows with outpt GI; currently monitoring, next EGD Oct 2022 BMI: 31.4 Obesity - Lifestyle modifications DVT prophylaxis with Lovenox Anticipated Disposition: Home Code status is Full Code Interval History / Subjective No chest pain, sob, palpitations currently. HR stable. Discussed care with EP team - stress test in am. Hemodynamically stable. Objective Temp: [97.7 F (36.5 C)-98.9 F (37.2 C)] 98 F (36.7 C) Pulse (Heart Rate): [68-96] 79 Resp Rate: [14-18] 17 BP: (114-131)/(59-78) 116/71 O2 Sat (%): [92 %-98 %] 98 % Weight: [107.4 kg (236 lb 12.8 oz)] 107.4 kg (236 lb 12.8 oz) Physical Exam Gen: A, A, NAD ENT: MMM Resp: CTA & P bilat, normal effort Cardio: tachy, normal S1, S2, No ISABEL GI: S/NT/ND, NABS Psych: Ox3, appropriate affect and cognition Data Review Na/K+/Phos/Mg/Ca: 141/4.2/--/2.2/-- (10/17 136) Bun/Creat/Cl/CO2/Glucose: 12/0.98/109/23/ (10/17 0136) [facility] Progress Note Patient: Jose G Davila, : 1965, Impression / Plan Jose G Davila is a 56yo male with pmhx of PVCs, HTN/HLD, MONROE, Eczema, IBS-C, gastric mass who presented from [place] ED with SVT. #Recurrent SVTs: C/o palpitation, denies chest pain or SOB - Currently on dilt drip, NSR, will continue overnight - Failed outpatient treatment including oral beta shon, oral cardizem - Check ECG, monitor tele - Last Echo (10/04/22) EF 60%, Trivial mitral valve insufficiency, Trivial tricuspid valve insufficiency, Mild focal aortic valve calcification. - Nuc Stress (10/05/22) normal (full impression below) - EP consulted - started on flecainide 100 mg po q12h today - EKG/Drug monitoring per EP - Continue Metoprolol BID - Monitor and replete electrolytes #HTN: continue amlodipine and lopressor #HLD: continue statin and fenofibrate; also on Evolocumab every 2 weeks injection #Ezcema: Dupixent q2 weeks injection #Anxiety: mood stable, continue amitriptyline #MONROE: nocturnal cpap #IBS-C: Miralax prn #Stomach Lesion: EGD/Biopsy 12/2021 negative (full results below). He follows with outpt GI; currently monitoring, next EGD Oct 2022 BMI: 31.4 Obesity - Lifestyle modifications DVT prophylaxis with Lovenox Anticipated Disposition: Home Code status is Full Code Interval History / Subjective No chest pain, sob, palpitations currently. Discussed care with EP team. Hemodynamically stable. Objective Temp: [97.8 F (36.6 C)-98.8 F (37.1 C)] 97.8 F (36.6 C) Pulse (Heart Rate): [77-89] 89 Resp Rate: [14-16] 16 BP: (115-143)/(65-81) 129/75 O2 Sat (%): [94 %-98 %] 94 % Weight: [107.5 kg (237 lb)-107.7 kg (237 lb 8 oz)] 107.5 kg (237 lb) Physical Exam Gen: A, A, NAD ENT: MMM Resp: CTA & P bilat, normal effort Cardio: tachy, normal S1, S2, No ISABEL GI: S/NT/ND, NABS Psych: Ox3, appropriate affect and cognition Data Review WBC/Hgb/Hct/Plts: 6.49/14.5/43.3/240 (10/16 550) Na/K+/Phos/Mg/Ca: 141/4.4/3.1/2.3/8.9 (10/15 2036-10/16 550) Bun/Creat/Cl/CO2/Glucose: 12/0.97/112/20/115 (10/16 550) Ptt/Pt/Inr: 29.1/13.6/1.0 (10/15 2036) documented in this encounter [facility] 10-18-2022 Note Formatting of this n ote is different from the original. 10/18/22 1513 Medication Prior Auth Medication Requiring Prior Auth APIXABAN Dosage Form Tablet Intervention spoke with team;spoke with pharmacist Outcome Prior Auth Started Medication PA Process Complete? In Progress Jose G Davila Lacey: BQCMRGER - MARJORIE [facility] 10-18-2022 Note Formatting of this n ote might be different from the original. Discharge instructions reviewed with patient by RN, all questions answered. Patient verbalized understanding. IV's dc'd per policy with no difficulty and catheter tip intact. Telemetry dc'd. VS stable. [facility] 10-18-2022 Note Formatting of this n ote might be different from the original. Problem: Patient Care Overview Goal: Plan of Care Review 10/18/2022 1351 by Awa Fontenot RN Outcome: Adequate for Discharge 10/18/2022 0931 by Awa Fontenot RN Outcome: Progressing Toward Goal 10/18/2022930 by Awa Fontenot RN Outcome: Ongoing Goal: Individualization & Mutuality 10/18/20221350 by Awa Fontenot RN Outcome: Adequate for Discharge 10/18/2022930 by Awa Fontenot RN Outcome: Progressing Toward Goal 10/18/2022930 by Awa Fontenot RN Outcome: Ongoing Goal: Discharge Needs Assessment 10/18/2022 135 by Awa Fontenot RN Outcome: Adequate for Discharge 10/18/2022930 by Awa Fontenot RN Outcome: Progressing Toward Goal 10/18/2022930 by Awa Fontenot RN Outcome: Ongoing Goal: Interdisciplinary Rounds/Family Conf 10/18/20221350 by Awa Fontenot RN Outcome: Adequate for Discharge 10/18/2022930 by Awa Fontenot RN Outcome: Progressing Toward Goal 10/18/2022930 by Awa Fontenot RN Outcome: Ongoing Problem: Arrhythmia/Dysrhythmia (Symptomatic) (Adult) Goal: Signs and Symptoms of Listed Potential Problems Will be Absent, Minimized or Managed (Arrhythmia/Dysrhythmia) Description: Signs and symptoms of listed potential problems will be absent, minimized or managed by discharge/transition of care (reference Arrhythmia/Dysrhythmia (Symptomatic) (Adult) CPG). 10/18/2022 135 by Awa Fontenot RN Outcome: Adequate for Discharge 10/18/2022930 by Awa Fontenot RN Outcome: Progressing Toward Goal 10/18/2022930 by Awa Fontenot RN Outcome: Ongoing [facility] 10-18-2022 Hospital course Narrative Images from the original note were not included. Hospital Medicine Discharge Summary Patient: Jose G Davila, : 1965, Date of face to face patient encounter: 10/18/2022 Admission Details Admit Date 10/15/2022 Discharge Date 10/18/2022 Inpatient Days 3 Primary Diagnoses Patient Active Problem List Diagnosis SVT (supraventricular tachycardia) Paroxysmal atrial fibrillation Action Items Follow up with EP for ablation in community. Summary of Hospitalization Dear Doctors, I recently had the opportunity to care for Jose G Davila during his recent hospital stay at [facility]. As you may know, Jose G Davila is a 56yo male with pmhx of PVCs, HTN/HLD, MONROE, Eczema, IBS-C, gastric mass who presented from [place] ED with SVT. #Recurrent SVTs: C/o palpitation, denies chest pain or SOB - Failed outpatient treatment including oral beta shon, oral Cardizem - Concern for possible underlying a fib - Check ECG, monitor tele - Last Echo (10/04/22) EF 60%, Trivial mitral valve insufficiency, Trivial tricuspid valve insufficiency, Mild focal aortic valve calcification. - Nuc Stress (10/05/22) normal (full impression below) - EP consulted - started on flecainide 100 mg po q12h today - treadmill stress EKG this am unremarkable on flecainide - apixaban 5 mg po bid - further mgmt by EP in community - Continue Metoprolol BID - EP follow up in community for intervention/ablation #HTN: continue Lopressor. DC amlodipine. #HLD: continue statin and fenofibrate; also on Evolocumab every 2 weeks injection #Ezcema: Dupixent q2 weeks injection #Anxiety: mood stable, continue amitriptyline #MONROE: nocturnal cpap #IBS-C: Miralax prn #Stomach Lesion: EGD/Biopsy 12/2021 negative (full results below). He follows with BMI: 31.3 Obesity - Follow with PCP for dietary and lifestyle modifications Pt converted to NSR in house. Hemodynamics stable and asymptomatic. EP follow per EP. Stable for dc home. Upon discharge the patient's code was Full Code Please see the remainder of this document for relevant data from this admission as well as the patient's discharge instructions and follow-up appointments. An electronic copy of the patient's records can be obtained via [facility] at [email or web address] It has been my pleasure participating in this patient's care. Please contact me with any questions or concerns regarding his hospital stay. The total time of discharge was 40 minutes. Sincerely, Marty Turner DO, MPH Division of Hospital Medicine Relevant Data from this Admission Temp: [97.7 F (36.5 C)-98.6 F (37 C)] 97.9 F (36.6 C) Pulse (Heart Rate): [68-78] 76 Resp Rate: [14-16] 16 BP: (108-121)/(66-80) 108/69 O2 Sat (%): [93 %-97 %] 93 % Weight: [107.5 kg (237 lb)-107.9 kg (237 lb 14.4 oz)] 107.5 kg (237 lb) Physical Exam Gen: Alert, Awake, NAD Eyes: PERRLA, EOMI, no icterus ENT: MMM, trachea midline Resp: CTA & P, normal respiratory effort Cardio: RRR, normal S1, S2, no M/R/G. No ISABEL. GI: S/NT/ND, NABS MS: No joint effusions or erythema Skin: No jaundice or rash Neuro: lead technical writer 3-7, 9-11 intact and equal. Strength grossly equal in muscle groups of the bilateral UEs and LEs. Psych: Ox3, appropriate affect and cognition Recent Labs 10/15/226 10/16/22 0550 10/17/22 0136 10/18/22 0335 WBC 7.02 6.49 -- -- HGB 15.5 14.5 -- -- PLATELET 269 240 -- -- SODIUM 144 141 141 140 POTASSIUM 4.0 4.4 4.2 4.1 CO2 22 20* 23 24 ANIONGAP 14 13 13 12 BUN 13 12 12 16 CREATSERUM 0.97 0.97 0.98 1.08 MAGNESIUM 2.3 2.3 2.2 2.1 PHOSPHORUS 3.1 -- -- -- AST 17 -- 17 -- ALT 20 -- 21 -- ALKPHOS 37 -- 33 -- BILITOTAL 0.4 -- 0.5 -- BILIDIRECT 0.1 -- 0.1 -- INR 1.0 -- -- -- PTT 29.1 -- -- -- Patient Instructions Future Appointments Date Time Provider Department Center 12/01/2022 1:40 PM Lauri Almazan MD [facility] No follow-up provider specified. Medication List for when you go home START taking these medications * apixaban 5 MG TABS Take 1 tablet by mouth every 12 hours. Commonly known as: ELIQUIS For diagnoses: SVT (supraventricular tachycardia) * apixaban 5 MG TABS Take 1 tablet by mouth every 12 hours. Commonly known as: ELIQUIS For diagnoses: SVT (supraventricular tachycardia) Flecainide 100 MG TABS Take 1 tablet by mouth every 12 hours. Commonly known as: TAMBOCOR * The same medication is listed twice. Please discuss with your provider. CONTINUE taking these medications Amitriptyline 25 MG TABS Take 25 mg by mouth At bedtime. Commonly known as: ELAVIL Complete TABS Take 1 tablet by mouth daily. Dupixent 300 MG/2ML SOPN Inject under the skin. Every 2 weeks injections- for eczema Generic drug: Dupilumab Gemfibrozil 600 MG TABS Take 600 mg by mouth 2 times daily. Commonly known as: LOPID Loratadine 10 MG CAPS Take by mouth. Metoprolol 50 MG tab regular release Take 50 mg by mouth 2 times daily. Commonly known as: LOPRESSOR Pitavastatin Calcium 4 MG TABS Take by mouth. Repatha 140 MG/ML SOSY injection Inject under the skin. Every 2 weeks injections- high cholesterol Generic drug: Evolocumab STOP taking these medications amLODIPine 5 MG TABS Commonly known as: NORVASC documented in this encounter [facility] 10-18-2022 Hospital Discharge instructions Emilee Pugh RN - 10/18/2022 11:27 AM EST Patient Experience Survey Reminder You may receive a survey in the mail within a few weeks regarding your hospitalization. This helps us to improve the care and services we provide at [facility]. We truly appreciate you taking the time to fill this out. We particularly welcome any specific comments you may have (good or bad!) regarding your experience at [facility] so that we may use them to continue to strive towards excellence for our patients. The following attachments cannot be sent through Care Everywhere.flecainide (Mongolian)apixaban (Mongolian)documented in this encounter [facility] 10-18-2022 Note Formatting of this n ote might be different from the original. Problem: Patient Care Overview Goal: Plan of Care Review 10/18/2022930 by Awa Fontenot RN Outcome: Progressing Toward Goal 10/18/2022930 by Awa Fontenot RN Outcome: Ongoing Goal: Individualization & Mutuality 10/18/2022930 by Awa Fontenot RN Outcome: Progressing Toward Goal 10/18/2022930 by Awa Fontenot RN Outcome: Ongoing Goal: Discharge Needs Assessment 10/18/2022930 by Awa Fontenot RN Outcome: Progressing Toward Goal 10/18/2022930 by Awa Fontenot RN Outcome: Ongoing Goal: Interdisciplinary Rounds/Family Conf 10/18/2022930 by Awa Fontenot RN Outcome: Progressing Toward Goal 10/18/2022930 by Awa Fontenot RN Outcome: Ongoing Problem: Arrhythmia/Dysrhythmia (Symptomatic) (Adult) Goal: Signs and Symptoms of Listed Potential Problems Will be Absent, Minimized or Managed (Arrhythmia/Dysrhythmia) Description: Signs and symptoms of listed potential problems will be absent, minimized or managed by discharge/transition of care (reference Arrhythmia/Dysrhythmia (Symptomatic) (Adult) CPG). 10/18/2022930 by Awa Fontenot RN Outcome: Progressing Toward Goal 10/18/2022930 by Awa Fontenot RN Outcome: Ongoing [facility] 10-18-2022 Note Formatting of this n ote might be different from the original. Problem: Patient Care Overview Goal: Interdisciplinary Rounds/Family Conf Outcome: Met This Shift Problem: Arrhythmia/Dysrhythmia (Symptomatic) (Adult) Goal: Signs and Symptoms of Listed Potential Problems Will be Absent, Minimized or Managed (Arrhythmia/Dysrhythmia) Description: Signs and symptoms of listed potential problems will be absent, minimized or managed by discharge/transition of care (reference Arrhythmia/Dysrhythmia (Symptomatic) (Adult) CPG). Outcome: Met This Shift Problem: Patient Care Overview Goal: Plan of Care Review Outcome: Ongoing Goal: Individualization & Mutuality Outcome: Ongoing Goal: Discharge Needs Assessment Outcome: Ongoing [facility] 10-17-2022 Note Formatting of this n ote might be different from the original. Problem: Arrhythmia/Dysrhythmia (Symptomatic) (Adult) Goal: Signs and Symptoms of Listed Potential Problems Will be Absent, Minimized or Managed (Arrhythmia/Dysrhythmia) Description: Signs and symptoms of listed potential problems will be absent, minimized or managed by discharge/transition of care (reference Arrhythmia/Dysrhythmia (Symptomatic) (Adult) CPG). Outcome: Met This Shift Problem: Patient Care Overview Goal: Plan of Care Review Outcome: Ongoing Goal: Individualization & Mutuality Outcome: Ongoing Goal: Discharge Needs Assessment Outcome: Ongoing Goal: Interdisciplinary Rounds/Family Conf Outcome: Ongoing Plan of care reviewed w/ patient and physician. Vital signs completed per protocol. Monitoring intake and output q8h. Assessing pain q4h and medicate prn. Obtaining daily weights. Labs completed per protocol and will report any abnormal values to physician. Per order, Diltiazem gtts stopped this AM & daily EKG completed for Flecainide load. Per EP, plan for Treadmill ST 10/18 followed by outpatient ablation. Will continue to monitor. Katherin Geiger RN 10/17/2022 [id number] [facility] 10-17-2022 Note Formatting of this n ote might be different from the original. Problem: Patient Care Overview Goal: Interdisciplinary Rounds/Family Conf Outcome: Met This Shift Problem: Arrhythmia/Dysrhythmia (Symptomatic) (Adult) Goal: Signs and Symptoms of Listed Potential Problems Will be Absent, Minimized or Managed (Arrhythmia/Dysrhythmia) Description: Signs and symptoms of listed potential problems will be absent, minimized or managed by discharge/transition of care (reference Arrhythmia/Dysrhythmia (Symptomatic) (Adult) CPG). Outcome: Met This Shift Problem: Patient Care Overview Goal: Plan of Care Review Outcome: Ongoing Goal: Individualization & Mutuality Outcome: Ongoing Goal: Discharge Needs Assessment Outcome: Ongoing [facility] 10-16-2022 Note Formatting of this n ote might be different from the original. Problem: Patient Care Overview Goal: Plan of Care Review Outcome: Ongoing Goal: Individualization & Mutuality Outcome: Ongoing Problem: Arrhythmia/Dysrhythmia (Symptomatic) (Adult) Goal: Signs and Symptoms of Listed Potential Problems Will be Absent, Minimized or Managed (Arrhythmia/Dysrhythmia) Description: Signs and symptoms of listed potential problems will be absent, minimized or managed by discharge/transition of care (reference Arrhythmia/Dysrhythmia (Symptomatic) (Adult) CPG). Outcome: Ongoing Plan of care reviewed w/ patient, nursing, and physician. Vital signs completed per protocol. Monitoring intake and output q8h. Assessing pain q4h and medicate prn. Obtaining daily weights. Labs completed per protocol and will report any abnormal values to physician. Patient on Diltiazem gtts currently at 5 mg/hr. Will continue to monitor. Katherin Geiger RN 10/16/2022 [id number] [facility] 10-16-2022 Consult note Associated Order (s): IP CONSULT TO CARDIOLOGY - EP EP CONSULT NOTE Patient Name: Jose G Davila Date of Consult: 10/16/2022 Reason for Consultation: 'recurrent SVT ; evaluation for possible ablation' ASSESSMENT AND PLAN: Jose G Davila is a 56 y.o. male with a history of PVCs, hypertension, MONROE was transferred from an outside facility for palpitations/SVT. PROBLEM LIST 1. SVT: Available strips are of low quality some aching a definitive diagnosis challenging, however I suspect patient is having runs of pulmonary vein tachycardia based on the findings on telemetry while admitted. Review of the scan tracings also appeared to have some irregularity so may have underlying atrial fibrillation as well, as PV-tachs are common triggers for atrial fibrillation. RECOMMENDATIONS 1. Initiate flecainide 100 mg twice daily, patient will need loading doses and treadmill stress EKG to ensure there is no QRS widening 2. Plan to stop the diltiazem drip tomorrow 3. Continue metoprolol 4. Will initiate apixaban in preparation for outpatient PVI, if no further atrial arrhythmias following PVI patient will discontinue anticoagulation after ablation. Thank you for allowing us to participate in the care of this patient. If you have further questions please do not hesitate to contact the EP Consult service. We will continue to follow. -- All recommendations preliminary until cosigned by attending physician. -- Chris Ziegler MD Fellow, Clinical Cardiac Electrophysiology HISTORY: It was my pleasure to see Mr. Jose G Davila in consultation at the [facility] on 10/16/2022 for evaluation of his palpitations/tachycardia. He is a pleasant 56 y.o. male with a history outlined above who presented to an outside facility with complaints of palpitations. Cm narrow complex tachycardia, vagal maneuvers and adenosine were trialed which reportedly led to slowing of the tachycardia but not complete resolution, with resumption of tachycardia and elevated rates after a brief period time. Patient reports he has had intermittent episodes similar to this over the past few weeks. No syncope, no chest pain. PAST MEDICAL HISTORY: PAST MEDICAL HISTORY He has a past medical history of Anxiety and depression, Chronic eczema, Gastric mass, High triglycerides, HLD (hyperlipidemia), HTN (hypertension), Irritable bowel syndrome with constipation, MONROE (obstructive sleep apnea), PVC's (premature ventricular contractions), and SVT (supraventricular tachycardia). PAST SURGICAL HISTORY His has a past surgical history that includes arthroscopy knee w/ meniscus repair (Left, 2005). FAMILY HISTORY His family history includes Cancer- Other in his father; Coronary Artery Disease in his father; Diabetes in his mother; Other - Specify in his mother. He He indicated that his mother is alive. He indicated that his father is . SOCIAL HISTORY He reports that he has quit smoking. His smoking use included cigarettes. He has never used smokeless tobacco. He reports current alcohol use of about 4.0 standard drinks per week. No history on file for drug use. ALLERGIES Allergies Allergen Reactions Atorvastatin Myalgia Cat Dander Grass [*Seasonal] pollen Latex Lisinopril Cough HOME MEDICATIONS Medications Prior to Admission Medication Sig Dispense Refill Last Dose Amitriptyline 25 MG tablet Take 25 mg by mouth At bedtime. amLODIPine 5 MG tablet Take 5 mg by mouth daily. Dupilumab (Dupixent) 300 MG/2ML Solution Pen-injector Inject under the skin. Every 2 weeks injections- for eczema Evolocumab (Repatha) 140 MG/ML Solution Prefilled Syringe injection Inject under the skin. Every 2 weeks injections- high cholesterol Gemfibrozil 600 MG tablet Take 600 mg by mouth 2 times daily. Loratadine 10 MG capsule Take by mouth. Metoprolol 50 MG tab regular release Take 50 mg by mouth 2 times daily. Multiple Vitamins-Minerals (Complete) tablet Take 1 tablet by mouth daily. Pitavastatin Calcium (Livalo) 4 MG tablet Take by mouth. CURRENT MEDICATIONS Amitriptyline 25 mg Oral QHS amLODIPine 5 mg Oral Daily enoxaparin 40 mg Subcutaneous Q24H Fenofibrate 144 mg Oral Daily Loratadine 10 mg Oral Daily Metoprolol 50 mg Oral BID diltiazem (CARDIZEM) IV infusion in NS 7.5 mg/hr (10/16/22604) REVIEW OF SYSTEMS: General: No weight change (increase or decrease), no fevers, no chills Head: No headache, no neck pain Eyes: No blurry vision, no double vision Ears: No hearing loss, no tinnitus Nose/mouth: No rhinorrhea, no congestion, no sore throat Cardiac: No chest pain, no dyspnea on exertion, +palpitations Resp: No shortness of breath, no coughing, no hemoptysis GI: No abdominal pain, No constipation, No diarrhea, No nausea, no emesis, no hematochezia or melena : No dysuria, no hematuria Musculoskeletal: No muscle weakness, no joint pain Neurologic: No loss of sensation, no weakness Psychiatric: Normal mood, no anxiety, no SI/HI Skin: No rash, no jaundice PHYSICAL EXAM: Intake/Output Summary (Last 24 hours) at 10/16/2022623 Last data filed at 10/16/2022 06 Gross per 24 hour Intake 673.63 ml Output 500 ml Net 173.63 ml Temp: [98.1 F (36.7 C)-98.8 F (37.1 C)] 98.1 F (36.7 C) Pulse (Heart Rate): [77-88] 84 Resp Rate: [14-16] 14 BP: (115-143)/(65-81) 115/67 O2 Sat (%): [96 %-98 %] 97 % Weight: [107.5 kg (237 lb)-107.7 kg (237 lb 8 oz)] 107.5 kg (237 lb) BP 115/67 (BP Location: Right arm, BP Position: Lying) Pulse 84 Temp 98.1 F (36.7 C) (Oral) Resp 14 Ht 1.854 m (6' 1 ) Wt 107.5 kg (237 lb) SpO2 97% BMI 31.27 kg/m Smoking Status Former General appearance: The patient is in no distress. Heent: Normocephalic. normal conjunctiva. Pupils are equal, round, and reactive to light. Chest: No chest wall deformity. Clear to auscultation bilaterally. Normal respiratory effort. Heart: Heart rate normal, regular rhythm. S1, S2 normal. No murmurs, clicks, rubs or gallops. There is no jugular venous distension noted. Abdomen: Soft, non-tender. Normal appearance. Bowel sounds normal. No pulsatile masses or organomegaly. Extremities: Normal, atraumatic, no cyanosis. No ulcers. no LE edema Pulses: All pulses 2+ and symmetric. Skin: Skin color, texture, turgor normal. No rashes or lesions. DATA REVIEWED: Lab Results Component Value Date SODIUM 144 10/15/2022 POTASSIUM 4.0 10/15/2022 GLUCOSE 87 10/15/2022 CHLORIDE 112 (H) 10/15/2022 CO2 22 10/15/2022 BUN 13 10/15/2022 CREATSERUM 0.97 10/15/2022 Lab Results Component Value Date WBC 6.49 10/16/2022 HGB 14.5 10/16/2022 HCT 43.3 10/16/2022 PLATELET 240 10/16/2022 MCV 90.2 10/16/2022 No results found for: CHOLESTEROL, TRIG, HDL, LDLCALC, LDLDIRECT No results found for: TROP, BNP EKG, personally reviewed, NSR Telemetry, personally reviewed, SR with short atrial runs, PACs Associated attestation - Moody Christine MD - 10/17/2022 3:23 PM EST EP Staff: Patient EP plan progressing well. I discussed plan with patient and/or family/staff and answered questions. Physical Exam: Constitutional: Alert and oriented x 3 Eyes: Extraocular motions are normal. Musculoskeletal: No edema. Neurological: Nonfocal Skin: Skin is warm and dry. Psychiatric: Affect normal. I have independently seen and examined the patient and agree with the history, physicial, assessment and plan of the my motion study engineer as addended by me. Moody Christine MD10/17/2022 [facility] Work Phone: 10-16-2022 Consult note Associated Order (s): IP CONSULT TO CARDIOLOGY - EP EP CONSULT NOTE Patient Name: Jose G Davila Date of Consult: 10/16/2022 Reason for Consultation: 'recurrent SVT ; evaluation for possible ablation' ASSESSMENT AND PLAN: Jose G Davila is a 56 y.o. male with a history of PVCs, hypertension, MONROE was transferred from an outside facility for palpitations/SVT. PROBLEM LIST 1. SVT: Available strips are of low quality some aching a definitive diagnosis challenging, however I suspect patient is having runs of pulmonary vein tachycardia based on the findings on telemetry while admitted. Review of the scan tracings also appeared to have some irregularity so may have underlying atrial fibrillation as well, as PV-tachs are common triggers for atrial fibrillation. RECOMMENDATIONS 1. Initiate flecainide 100 mg twice daily, patient will need loading doses and treadmill stress EKG to ensure there is no QRS widening 2. Plan to stop the diltiazem drip tomorrow 3. Continue metoprolol 4. Will initiate apixaban in preparation for outpatient PVI, if no further atrial arrhythmias following PVI patient will discontinue anticoagulation after ablation. Thank you for allowing us to participate in the care of this patient. If you have further questions please do not hesitate to contact the EP Consult service. We will continue to follow. -- All recommendations preliminary until cosigned by attending physician. -- Chris Ziegler MD Fellow, Clinical Cardiac Electrophysiology HISTORY: It was my pleasure to see Mr. Jose G Davila in consultation at the [facility] on 10/16/2022 for evaluation of his palpitations/tachycardia. He is a pleasant 56 y.o. male with a history outlined above who presented to an outside facility with complaints of palpitations. Cm narrow complex tachycardia, vagal maneuvers and adenosine were trialed which reportedly led to slowing of the tachycardia but not complete resolution, with resumption of tachycardia and elevated rates after a brief period time. Patient reports he has had intermittent episodes similar to this over the past few weeks. No syncope, no chest pain. PAST MEDICAL HISTORY: PAST MEDICAL HISTORY He has a past medical history of Anxiety and depression, Chronic eczema, Gastric mass, High triglycerides, HLD (hyperlipidemia), HTN (hypertension), Irritable bowel syndrome with constipation, MONROE (obstructive sleep apnea), PVC's (premature ventricular contractions), and SVT (supraventricular tachycardia). PAST SURGICAL HISTORY His has a past surgical history that includes arthroscopy knee w/ meniscus repair (Left, 2005). FAMILY HISTORY His family history includes Cancer- Other in his father; Coronary Artery Disease in his father; Diabetes in his mother; Other - Specify in his mother. He He indicated that his mother is alive. He indicated that his father is . SOCIAL HISTORY He reports that he has quit smoking. His smoking use included cigarettes. He has never used smokeless tobacco. He reports current alcohol use of about 4.0 standard drinks per week. No history on file for drug use. ALLERGIES Allergies Allergen Reactions Atorvastatin Myalgia Cat Dander Grass [*Seasonal] pollen Latex Lisinopril Cough HOME MEDICATIONS Medications Prior to Admission Medication Sig Dispense Refill Last Dose Amitriptyline 25 MG tablet Take 25 mg by mouth At bedtime. amLODIPine 5 MG tablet Take 5 mg by mouth daily. Dupilumab (VIDTEQ [place]) 300 MG/2ML Solution Pen-injector Inject under the skin. Every 2 weeks injections- for eczema Evolocumab (Repatha) 140 MG/ML Solution Prefilled Syringe injection Inject under the skin. Every 2 weeks injections- high cholesterol Gemfibrozil 600 MG tablet Take 600 mg by mouth 2 times daily. Loratadine 10 MG capsule Take by mouth. Metoprolol 50 MG tab regular release Take 50 mg by mouth 2 times daily. Multiple Vitamins-Minerals (Complete) tablet Take 1 tablet by mouth daily. Pitavastatin Calcium (Livalo) 4 MG tablet Take by mouth. CURRENT MEDICATIONS Amitriptyline 25 mg Oral QHS amLODIPine 5 mg Oral Daily enoxaparin 40 mg Subcutaneous Q24H Fenofibrate 144 mg Oral Daily Loratadine 10 mg Oral Daily Metoprolol 50 mg Oral BID diltiazem (CARDIZEM) IV infusion in NS 7.5 mg/hr (10/16/22604) REVIEW OF SYSTEMS: General: No weight change (increase or decrease), no fevers, no chills Head: No headache, no neck pain Eyes: No blurry vision, no double vision Ears: No hearing loss, no tinnitus Nose/mouth: No rhinorrhea, no congestion, no sore throat Cardiac: No chest pain, no dyspnea on exertion, +palpitations Resp: No shortness of breath, no coughing, no hemoptysis GI: No abdominal pain, No constipation, No diarrhea, No nausea, no emesis, no hematochezia or melena : No dysuria, no hematuria Musculoskeletal: No muscle weakness, no joint pain Neurologic: No loss of sensation, no weakness Psychiatric: Normal mood, no anxiety, no SI/HI Skin: No rash, no jaundice PHYSICAL EXAM: Intake/Output Summary (Last 24 hours) at 10/16/2022623 Last data filed at 10/16/2022 0605 Gross per 24 hour Intake 673.63 ml Output 500 ml Net 173.63 ml Temp: [98.1 F (36.7 C)-98.8 F (37.1 C)] 98.1 F (36.7 C) Pulse (Heart Rate): [77-88] 84 Resp Rate: [14-16] 14 BP: (115-143)/(65-81) 115/67 O2 Sat (%): [96 %-98 %] 97 % Weight: [107.5 kg (237 lb)-107.7 kg (237 lb 8 oz)] 107.5 kg (237 lb) BP 115/67 (BP Location: Right arm, BP Position: Lying) Pulse 84 Temp 98.1 F (36.7 C) (Oral) Resp 14 Ht 1.854 m (6' 1 ) Wt 107.5 kg (237 lb) SpO2 97% BMI 31.27 kg/m Smoking Status Former General appearance: The patient is in no distress. Heent: Normocephalic. normal conjunctiva. Pupils are equal, round, and reactive to light. Chest: No chest wall deformity. Clear to auscultation bilaterally. Normal respiratory effort. Heart: Heart rate normal, regular rhythm. S1, S2 normal. No murmurs, clicks, rubs or gallops. There is no jugular venous distension noted. Abdomen: Soft, non-tender. Normal appearance. Bowel sounds normal. No pulsatile masses or organomegaly. Extremities: Normal, atraumatic, no cyanosis. No ulcers. no LE edema Pulses: All pulses 2+ and symmetric. Skin: Skin color, texture, turgor normal. No rashes or lesions. DATA REVIEWED: Lab Results Component Value Date SODIUM 144 10/15/2022 POTASSIUM 4.0 10/15/2022 GLUCOSE 87 10/15/2022 CHLORIDE 112 (H) 10/15/2022 CO2 22 10/15/2022 BUN 13 10/15/2022 CREATSERUM 0.97 10/15/2022 Lab Results Component Value Date WBC 6.49 10/16/2022 HGB 14.5 10/16/2022 HCT 43.3 10/16/2022 PLATELET 240 10/16/2022 MCV 90.2 10/16/2022 No results found for: CHOLESTEROL, TRIG, HDL, LDLCALC, LDLDIRECT No results found for: TROP, BNP EKG, personally reviewed, NSR Telemetry, personally reviewed, SR with short atrial runs, PACs Associated attestation - Emmett, Moody D, MD - 10/17/2022 3:23 PM EST EP Staff: Patient EP plan progressing well. I discussed plan with patient and/or family/staff and answered questions. Physical Exam: Constitutional: Alert and oriented x 3 Eyes: Extraocular motions are normal. Musculoskeletal: No edema. Neurological: Nonfocal Skin: Skin is warm and dry. Psychiatric: Affect normal. I have independently seen and examined the patient and agree with the history, physicial, assessment and plan of the my motion study engineer as addended by me. Moody Christine MD10/17/2022 documented in this encounter [facility] 10-16-2022 Note Formatting of this n ote might be different from the original. I certify that this patient requires inpatient services at this time. I anticipate the expected length of stay will include at least two midnights. Inpatient services are due to the following medical concerns SVT refractory to oral medications. Failed outpatient treatment including oral beta shon, oral cardizem. Current treatment plan includes cardizem gtt, EP consult. Plans for post hospitalization care will be discharge to home. [facility] Work Phone: 10-16-2022 Note Formatting of this n ote might be different from the original. Problem: Patient Care Overview Goal: Plan of Care Review Outcome: Ongoing Flowsheets (Taken 10/16/2022 0520) Plan Of Care Reviewed With: patient Progress: progress towards functional goals is fair Note: Vital signs completed per protocol. Monitoring intake and output q8h. Assessing pain q4h and medicate prn. Obtaining daily weights. Labs completed per protocol and will report any abnormal values to physician. Will continue hourly rounding per hospital protocol. Plan of care reviewed and updated with patient and patient demonstrates understanding. Problem: Arrhythmia/Dysrhythmia (Symptomatic) (Adult) Goal: Signs and Symptoms of Listed Potential Problems Will be Absent, Minimized or Managed (Arrhythmia/Dysrhythmia) Description: Signs and symptoms of listed potential problems will be absent, minimized or managed by discharge/transition of care (reference Arrhythmia/Dysrhythmia (Symptomatic) (Adult) CPG). Outcome: Ongoing Flowsheets (Taken 10/16/2022 0520) Problems Assessed (Arrhythmia/Dysrhythmia): electrophysiological conduction defect Problems Present (Arrhythmia/Dysrhythmia): electrophysiological conduction defect Note: Continuous cardiac monitoring as ordered. ECGs obtained per protocol. Electrolytes replaced with prn orders when appropriate. Antiarrhythmic given as scheduled. EP consult. Patient on diltiazem gtt. [facility] 10-15-2022 Note Acute Coronary Syndr ome (ACS): Initial Evaluation and Management: [email or web address] [facility] 10-15-2022 History and physical note Hospital Medicine Admission History & Physical Patient: Jose G Davila, : 1965, Date of face to face patient encounter: 10/15/2022 Attending: Dr. Oliva, Service: [facility] Impression / Plan Jose G Davila is a 56yo male with pmhx of PVCs, HTN/HLD, MONROE, Eczema, IBS-C, gastric mass who presented from [place] ED with SVT. #Recurrent SVTs: C/o palpitation, denies chest pain or SOB - Currently on dilt drip, NSR, will continue overnight - Check ECG, monitor tele - Last Echo (10/04/22) EF 60%, Trivial mitral valve insufficiency, Trivial tricuspid valve insufficiency, Mild focal aortic valve calcification. - Nuc Stress (10/05/22) normal (full impression below) - EP consulted; appreciate recs - Continue Metoprolol BID - Monitor and replete electrolytes #HTN: continue amlodipine and lopressor #HLD: continue statin and fenofibrate; also on Evolocumab every 2 weeks injection #Ezcema: Dupixent q2 weeks injection #Anxiety: mood stable, continue amitriptyline #MONROE: nocturnal cpap #IBS-C: Miralax prn #Stomach Lesion: EGD/Biopsy 12/2021 negative (full results below). He follows with outpt GI; currently monitoring, next EGD Oct 2022 BMI: 31.4 Obesity - Lifestyle modifications DVT prophylaxis with Lovenox Anticipated Disposition: Home Code status is Full Code Chief Complaint SVT History of Presenting Illness Jose G Davila is a 56 y.o. male with history of PVCs, HTN/HLD, MONROE, Eczema, IBS-C, gastric mass who presented from [place] ED with SVT. Pt reports he had the flu at the beginning of this month. Reports on October 04 he developed palpitation was seen at [place] with SVT/HR 200s, tried valsalva maneuver with no improvement s/p several doses of adenosine and Cardizem gtt. He had an Echo and nuc stress test done that were relatively normal (impressions below) . He was started on lopressor BID, was discharged and had follow up with Cardiology outpt in Nov. Yesterday he was waken up out his sleep with racing heart rate, denied SOB or chest pain; He presented back to [place] s/p several doses of adenosine, po Cardizem and eventually started on Cardizem gtt; his heart rate improved and he was discharged home. He reports while driving home about 15min after being discharged he began to feel palpitation again and proceeded to [place] ED; He was back in SVT s/p several doses of adenosine (6mg & 12mg) and started on Cardizem gtt. He was transferred here for EP evaluation for recurrent SVT. He notes hx of PVCs which he relates to increase stress and fatigue. States he develops a cough with his palpitation. He denies chest pain, SOB, fevers or chills. No N/V or abdominal pain. Denies urinary symptoms. Reports reg BMs at this time. Review of Systems Constitutional: No fever, chills, weight changes Eyes: No vision changes ENT: No ringing, loss of hearing Cardiovascular: + palpitation, No LE edema, leg pain with walking, PND, Orthopnea Respiratory: No cough, SOB Gastrointestinal: No abd pain, constipation, diarrhea Genitourinary: No dysuria, gross hematuria Integumentary: No rash Musculoskeletal: No joint deformity, joint pains Psychiatric: No depressed mood History Past Medical History: Diagnosis Date Anxiety and depression Chronic eczema Gastric mass following with GI; monitoring (next EGD 10/2022) High triglycerides HLD (hyperlipidemia) HTN (hypertension) Irritable bowel syndrome with constipation MONROE (obstructive sleep apnea) PVC's (premature ventricular contractions) SVT (supraventricular tachycardia) Past Surgical History: Procedure Laterality Date ARTHROSCOPY KNEE W/ MENISCUS REPAIR Left 2005 Social History he reports that he has quit smoking. His smoking use included cigarettes. He has never used smokeless tobacco. He reports current alcohol use of about 4.0 standard drinks per week. No history on file for drug use. Family History family history includes Cancer- Other in his father; Coronary Artery Disease in his father; Diabetes in his mother; Other - Specify in his mother. Medications / Allergies Prior to Admission Medications Prescriptions Amitriptyline 25 MG tablet Sig: Take 25 mg by mouth At bedtime. Dupilumab (Dupixent) 300 MG/2ML Solution Pen-injector Sig: Inject under the skin. Every 2 weeks injections- for eczema Evolocumab (Repatha) 140 MG/ML Solution Prefilled Syringe injection Sig: Inject under the skin. Every 2 weeks injections- high cholesterol Gemfibrozil 600 MG tablet Sig: Take 600 mg by mouth 2 times daily. Loratadine 10 MG capsule Sig: Take by mouth. Metoprolol 50 MG tab regular release Sig: Take 50 mg by mouth 2 times daily. Multiple Vitamins-Minerals (Complete) tablet Sig: Take 1 tablet by mouth daily. Pitavastatin Calcium (Livalo) 4 MG tablet Sig: Take by mouth. amLODIPine 5 MG tablet Sig: Take 5 mg by mouth daily. Facility-Administered Medications: None Allergies Allergen Reactions Atorvastatin Myalgia Cat Dander Grass [*Seasonal] pollen Latex Lisinopril Cough Objective Findings BP 143/81 (BP Location: Left arm, BP Position: Lying) Pulse 88 Temp 98.7 F (37.1 C) (Oral) Resp 16 Ht 1.854 m (6' 1 ) Wt 107.7 kg (237 lb 8 oz) SpO2 98% BMI 31.33 kg/m Smoking Status Former Physical Exam Gen: Alert, Awake, NAD Eyes: PERRLA, EOMI, no icterus ENT: MMM, trachea midline Resp: CTA & P, normal respiratory effort Cardio: RRR, normal S1, S2, no M/R/G. No ISABEL. GI: S/NT/ND, NABS MS: No joint effusions or erythema Skin: No jaundice or rash Neuro: lead technical writer 3-7, 9-11 intact and equal. Strength grossly equal in muscle groups of the bilateral UEs and LEs. Psych: Ox3, appropriate affect and cognition Data Review WBC/Hgb/Hct/Plts: 7.02/15.5/46.0/269 (10/15 2036) Echo 10/04/2022 Left ventricular systolic function is normal. The estimated ejection fraction is 60 %. Apical false tendon noted. Trivial mitral valve insufficiency. Trivial tricuspid valve insufficiency. Mild focal aortic valve calcification. Unable to estimate RV systolic pressure/pulmonary artery pressure due to technically difficult study. No evidence for diastolic dysfunction. Nuc Stress 10/05/2022 Impression: 1. Technically adequate (percent predicted maximal heart rate greater than 85%) exercise tolerance test 2. Peak exercise ECG with no obvious ECG change 3. There were no cardiac dysrhythmias pretest, during exercise, or recovery 4. Nuclear images pending Myocardial Perfusion Study Impression: 1. Rest and stress SPECT Cardiolite nuclear imaging demonstrate a small area of subtle diminished tracer uptake near the apical segments without significant change between rest and stress appearing compatible with physiologic apical thinning with no myocardial perfusion changes considered diagnostic for associated stress-induced myocardial ischemia. 2. The gated Cardiolite study reports an LVEF of 66%. EGD 12/2021 Impression: - Small hiatal hernia. Biopsied. - Normal stomach. Biopsied. - Normal examined duodenum. - An intramural (subepithelial) lesion was found in the antrum of the stomach. The lesion appeared to originate from within the submucosa (Layer 3). Recommendation: - Telephone my office for pathology results in 1 week. - Repeat the upper endoscopic ultrasound in 1 year for surveillance. A. Stomach, antrum and body, biopsy: - Antral and oxyntic mucosa with no diagnostic alteration. - No morphologic evidence of Helicobacter pylori microorganisms. B. Esophagogastric junction, biopsy: - Minimally inflamed cardiofundic-type mucosa, negative for intestinal metaplasia or dysplasia. C. Proximal esophagus, biopsy: - Squamous epithelium with no diagnostic alteration. DSA/kr 12/31/2021 Signed, Keena Chamorro APRN-SAMPLE COLLECTOR Pager # [phone] Associated attestation - Helena Oliva DO - 10/15/2022 11:38 PM EST I have seen and examined the patient and have discussed all pertinent findings with Keena Chamorro APRN-MARILEE. I have personally reviewed all available clinical data related to today's encounter, including but not limited to nursing and microsoft bi consultant notes, recent laboratory studies, and radiology images and reports. I have been fully involved in formulation of the documented assessment and plan. Pt has now had multiple episodes of SVT not controlled with beta shon and po cardizem x1, currently NSR on dilt gtt. Plan to continue dilt tonight and await EP recs in the AM. [facility] 10-15-2022 History and physical note Hospital Medicine Admission History & Physical Patient: Jose G Davila, : 1965, Date of face to face patient encounter: 10/15/2022 Attending: Dr. Oliva, Service: RHB Impression / Plan Jose G Davila is a 56yo male with pmhx of PVCs, HTN/HLD, MONROE, Eczema, IBS-C, gastric mass who presented from [place] ED with SVT. #Recurrent SVTs: C/o palpitation, denies chest pain or SOB - Currently on dilt drip, NSR, will continue overnight - Check ECG, monitor tele - Last Echo (10/04/22) EF 60%, Trivial mitral valve insufficiency, Trivial tricuspid valve insufficiency, Mild focal aortic valve calcification. - Nuc Stress (10/05/22) normal (full impression below) - EP consulted; appreciate recs - Continue Metoprolol BID - Monitor and replete electrolytes #HTN: continue amlodipine and lopressor #HLD: continue statin and fenofibrate; also on Evolocumab every 2 weeks injection #Ezcema: Dupixent q2 weeks injection #Anxiety: mood stable, continue amitriptyline #MONROE: nocturnal cpap #IBS-C: Miralax prn #Stomach Lesion: EGD/Biopsy 12/2021 negative (full results below). He follows with outpt GI; currently monitoring, next EGD Oct 2022 BMI: 31.4 Obesity - Lifestyle modifications DVT prophylaxis with Lovenox Anticipated Disposition: Home Code status is Full Code Chief Complaint SVT History of Presenting Illness Jose G Davila is a 56 y.o. male with history of PVCs, HTN/HLD, MONROE, Eczema, IBS-C, gastric mass who presented from [place] ED with SVT. Pt reports he had the flu at the beginning of this month. Reports on October 04 he developed palpitation was seen at [place] with SVT/HR 200s, tried valsalva maneuver with no improvement s/p several doses of adenosine and Cardizem gtt. He had an Echo and nuc stress test done that were relatively normal (impressions below) . He was started on lopressor BID, was discharged and had follow up with Cardiology outpt in Nov. Yesterday he was waken up out his sleep with racing heart rate, denied SOB or chest pain; He presented back to [place] s/p several doses of adenosine, po Cardizem and eventually started on Cardizem gtt; his heart rate improved and he was discharged home. He reports while driving home about 15min after being discharged he began to feel palpitation again and proceeded to [place] ED; He was back in SVT s/p several doses of adenosine (6mg & 12mg) and started on Cardizem gtt. He was transferred here for EP evaluation for recurrent SVT. He notes hx of PVCs which he relates to increase stress and fatigue. States he develops a cough with his palpitation. He denies chest pain, SOB, fevers or chills. No N/V or abdominal pain. Denies urinary symptoms. Reports reg BMs at this time. Review of Systems Constitutional: No fever, chills, weight changes Eyes: No vision changes ENT: No ringing, loss of hearing Cardiovascular: + palpitation, No LE edema, leg pain with walking, PND, Orthopnea Respiratory: No cough, SOB Gastrointestinal: No abd pain, constipation, diarrhea Genitourinary: No dysuria, gross hematuria Integumentary: No rash Musculoskeletal: No joint deformity, joint pains Psychiatric: No depressed mood History Past Medical History: Diagnosis Date Anxiety and depression Chronic eczema Gastric mass following with GI; monitoring (next EGD 10/2022) High triglycerides HLD (hyperlipidemia) HTN (hypertension) Irritable bowel syndrome with constipation MONROE (obstructive sleep apnea) PVC's (premature ventricular contractions) SVT (supraventricular tachycardia) Past Surgical History: Procedure Laterality Date ARTHROSCOPY KNEE W/ MENISCUS REPAIR Left 2005 Social History he reports that he has quit smoking. His smoking use included cigarettes. He has never used smokeless tobacco. He reports current alcohol use of about 4.0 standard drinks per week. No history on file for drug use. Family History family history includes Cancer- Other in his father; Coronary Artery Disease in his father; Diabetes in his mother; Other - Specify in his mother. Medications / Allergies Prior to Admission Medications Prescriptions Amitriptyline 25 MG tablet Sig: Take 25 mg by mouth At bedtime. Dupilumab (Dupixent) 300 MG/2ML Solution Pen-injector Sig: Inject under the skin. Every 2 weeks injections- for eczema Evolocumab (Repatha) 140 MG/ML Solution Prefilled Syringe injection Sig: Inject under the skin. Every 2 weeks injections- high cholesterol Gemfibrozil 600 MG tablet Sig: Take 600 mg by mouth 2 times daily. Loratadine 10 MG capsule Sig: Take by mouth. Metoprolol 50 MG tab regular release Sig: Take 50 mg by mouth 2 times daily. Multiple Vitamins-Minerals (Complete) tablet Sig: Take 1 tablet by mouth daily. Pitavastatin Calcium (Livalo) 4 MG tablet Sig: Take by mouth. amLODIPine 5 MG tablet Sig: Take 5 mg by mouth daily. Facility-Administered Medications: None Allergies Allergen Reactions Atorvastatin Myalgia Cat Dander Grass [*Seasonal] pollen Latex Lisinopril Cough Objective Findings BP 143/81 (BP Location: Left arm, BP Position: Lying) Pulse 88 Temp 98.7 F (37.1 C) (Oral) Resp 16 Ht 1.854 m (6' 1 ) Wt 107.7 kg (237 lb 8 oz) SpO2 98% BMI 31.33 kg/m Smoking Status Former Physical Exam Gen: Alert, Awake, NAD Eyes: PERRLA, EOMI, no icterus ENT: MMM, trachea midline Resp: CTA & P, normal respiratory effort Cardio: RRR, normal S1, S2, no M/R/G. No ISABEL. GI: S/NT/ND, NABS MS: No joint effusions or erythema Skin: No jaundice or rash Neuro: lead technical writer 3-7, 9-11 intact and equal. Strength grossly equal in muscle groups of the bilateral UEs and LEs. Psych: Ox3, appropriate affect and cognition Data Review WBC/Hgb/Hct/Plts: 7.02/15.5/46.0/269 (10/15 2036) Echo 10/04/2022 Left ventricular systolic function is normal. The estimated ejection fraction is 60 %. Apical false tendon noted. Trivial mitral valve insufficiency. Trivial tricuspid valve insufficiency. Mild focal aortic valve calcification. Unable to estimate RV systolic pressure/pulmonary artery pressure due to technically difficult study. No evidence for diastolic dysfunction. Nuc Stress 10/05/2022 Impression: 1. Technically adequate (percent predicted maximal heart rate greater than 85%) exercise tolerance test 2. Peak exercise ECG with no obvious ECG change 3. There were no cardiac dysrhythmias pretest, during exercise, or recovery 4. Nuclear images pending Myocardial Perfusion Study Impression: 1. Rest and stress SPECT Cardiolite nuclear imaging demonstrate a small area of subtle diminished tracer uptake near the apical segments without significant change between rest and stress appearing compatible with physiologic apical thinning with no myocardial perfusion changes considered diagnostic for associated stress-induced myocardial ischemia. 2. The gated Cardiolite study reports an LVEF of 66%. EGD 12/2021 Impression: - Small hiatal hernia. Biopsied. - Normal stomach. Biopsied. - Normal examined duodenum. - An intramural (subepithelial) lesion was found in the antrum of the stomach. The lesion appeared to originate from within the submucosa (Layer 3). Recommendation: - Telephone my office for pathology results in 1 week. - Repeat the upper endoscopic ultrasound in 1 year for surveillance. A. Stomach, antrum and body, biopsy: - Antral and oxyntic mucosa with no diagnostic alteration. - No morphologic evidence of Helicobacter pylori microorganisms. B. Esophagogastric junction, biopsy: - Minimally inflamed cardiofundic-type mucosa, negative for intestinal metaplasia or dysplasia. C. Proximal esophagus, biopsy: - Squamous epithelium with no diagnostic alteration. DEVON/magnus 12/31/2021 Signed, BRIGHT Rosario Pager # [phone] Associated attestation - Helena Oliva DO - 10/15/2022 11:38 PM EST I have seen and examined the patient and have discussed all pertinent findings with BRIGHT Spence. I have personally reviewed all available clinical data related to today's encounter, including but not limited to nursing and microsoft bi consultant notes, recent laboratory studies, and radiology images and reports. I have been fully involved in formulation of the documented assessment and plan. Pt has now had multiple episodes of SVT not controlled with beta shon and po cardizem x1, currently NSR on dilt gtt. Plan to continue dilt tonight and await EP recs in the AM. documented in this encounter [facility] 10-15-2022 Note Formatting of this n ote might be different from the original. On admission to [address] [place] [address] @ 1950, from an [facility] ED, a dual RN initial assessment of skin condition was performed by Harper Valentin RN and Catina Booker RN Skin Assessment: WDL Gus Score: 22 [facility] 10-15-2022 Note Formatting of this n ote might be different from the original. Called #[phone] and received report from KENNEDY Pacheco. Katherin Geiger RN 10/15/2022 1401 [facility] Diagnosis Paroxysmal atrial fibrillation Atrial fibrillation Paroxysmal atrial fibrillation Atrial fibrillation Paroxysmal atrial fibrillation Atrial fibrillation [facility] Diagnosis Paroxysmal atrial fibrillation- Primary Atrial fibrillation SVT (supraventricular tachycardia) Other specified cardiac dysrhythmias Paroxysmal atrial fibrillation Atrial fibrillation [facility] Diagnosis Paroxysmal atrial fibrillation- Primary Atrial fibrillation SVT (supraventricular tachycardia) Other specified cardiac dysrhythmias History of cardiac radiofrequency ablation PVC (premature ventricular contraction) Other premature beats Essential hypertension Unspecified essential hypertension Hyperlipidemia, unspecified hyperlipidemia type [facility] Diagnosis Paroxysmal atrial fibrillation- Primary Atrial fibrillation [facility]* Auth/Cert Specialty Diagnoses / Procedures Referred By Lanre larsen Referred To Contact Diagnoses SVT Marty Turner DO, MPH [address] [place] [address] [facility] [address] [place] [id number] Referral ID Status Reason Start Date Expiration Date Visits Re quested Visits Authorized [id number] 1 1 [facility]* Auth/Cert Specialty Diagnoses / Procedures Referred By Contac t Referred To Contact Diagnoses Paroxysmal atrial fibrillation Paroxysmal atrial fibrillation [I48.0] Procedures MI COMPRE EP EVAL ABLTJ ATR FIB PULM VEIN ISOLATION ABLATION SCHED INTERCARDIAC A-FIB TRANSEPTAL BY PULM VEIN ISOLATION W/EP EVAL ([id number]) Moody Christine MD [address] [place] [phone] [facility] [address] [place] [address] Referral ID Status Reason Start Date Expiration Date Visits Re quested Visits Authorized [id number] 1 1 [facility] Summary Purpose Family History No Family History Records FoundNo Family History Records FoundNo Family History Records FoundNo Family History Records FoundNo Family History Records Found Advance Directives No Advanced Directives Records FoundDocuments on File Type Date Recorded Patient [employer] Expl anation Advance Directive(s) 10/31/2019 9:03 AM Latest Code Status on File Code Status Date Activated Date Inactivated Comments Full Code 10/15/2022 8:04 PM Latest Code Status on File Code Status Date Activated Date Inactivated Comments Full Code 01/09/2023 9:57 AM Code Status History Code Status Date Activated Date Inactivated Comments Full Code 10/15/2022 8:04 PM 01/09/2023 9:57 AM Latest Code Status on File Code Status Date Activated Date Inactivated Comments Full Code 01/09/2023 9:57 AM Code Status History Code Status Date Activated Date Inactivated Comments Full Code 10/15/2022 8:04 PM 01/09/2023 9:57 AM Reason for Referral Specialty Diagnoses / Procedures Referred By Contac t Referred To Contact Procedures ECG, TREADMILL STRESS (NON-IMAGING) MI CV STRS TST XERS&/OR RX CONT ECG W/SI&R Marty Turner DO, MPH [address] [place], [place] [address] [place] [address] Referral ID Status Reason Start Date Expiration Date Visits Re quested Visits Authorized [id number] Closed 10/16/2022 11/10/2023 1 1 Specialty Diagnoses / Procedures Referred By Contac t Referred To Contact Procedures ECG Marty Turner DO, MPH [address] [address] Referral ID Status Reason Start Date Expiration Date V isits Requested Visits Authorized [id number] New Request 10/16/2022 11/10/2023 1 1 Specialty Diagnoses / Procedures Referred By Contac t Referred To Contact Procedures ECG Juan Quan MD [address] [place] [id number] Referral ID Status Reason Start Date Expiration Date V isits Requested Visits Authorized [id number] New Request 10/15/2022 11/09/2023 1 1 Specialty Diagnoses / Procedures Referred By Contac t Referred To Contact Diagnoses Paroxysmal atrial fibrillation Procedures CT CARDIAC PULMONARY VENOGRAM [place] CHG CT HEART CONTRAST EVAL CARDIAC STRUCT/MORPH Abdiaziz Bryan, LACEY [address] [place] [address] Referral ID Status Reason Start Date Expiration Date Visits Re quested Visits Authorized [id number] Closed 10/23/2022 11/12/2023 1 1 Specialty Diagnoses / Procedures Referred By Contac t Referred To Contact Diagnoses Paroxysmal atrial fibrillation Procedures MOBILE CARDIAC TELEMETRY Sarika Strauss, ROCK CRUSHER OPERATOR-SAMPLE COLLECTOR [address] [place], [place] [id number] Referral ID Status Reason Start Date Expiration Date V isits Requested Visits Authorized [id number] New Request 01/09/2023 02/03/2024 1 1 Specialty Diagnoses / Procedures Referred By Contac t Referred To Contact Diagnoses Paroxysmal atrial fibrillation Procedures ECG Carol Enriquez, ROCK CRUSHER OPERATOR-SAMPLE COLLECTOR [address] [place] [phone] Referral ID Status Reason Start Date Expiration Date V isits Requested Visits Authorized [id number] New Request 04/12/2023 05/06/2024 1 1 Referral ID Status Reason Start Date Expiration Date V isits Requested Visits Authorized [id number] New Request 04/12/2023 05/06/2024 1 1 Additional Source Comments (unrecognized sect ion and content) No Status Records FoundNo Status Records FoundNo Status Records FoundNo Status Records FoundNo Status Records Found INFORMATION SOURCE (unrecogn ized section and content) DATE CREATED AUTHOR AUTHOR'S ORGANIZ ATION 10/19/2022 [facility] DATE CREATED AUTHOR AUTHOR'S ORGANIZ ATION 04/23/2023 [facility] DATE CREATED AUTHOR AUTHOR'S ORGANIZ ATION 06/08/2023 [facility] DATE CREATED AUTHOR AUTHOR'S ORGANIZ ATION 07/26/2023 [facility] al Source Comments (unrecognize d section and content) In the event this informatio n is protected by the Federal Confidentiality of Alcohol and Drug Abuse Patient Records regulations: The Federal rules restrict any use of the information to criminally investigate or prosecute any alcohol or drug abuse patient.[facility] the event this information is protected by the Federal Confidentiality of Alcohol and Drug Abuse Patient Records regulations: The Federal rules restrict any use of the information to criminally investigate or prosecute any alcohol or drug abuse patient.[facility] Reason for Visit (unrecogniz ed section and content) Reason Comments December EGD recall AW Specialty Diagnoses / Procedures Referred By Contac t Referred To Contact Diagnoses Paroxysmal atrial fibrillation Procedures CT CARDIAC PULMONARY VENOGRAM [place]G CT HEART CONTRAST EVAL CARDIAC STRUCT/MORPH Abdiaziz Bryan, LACEY [address] [place] [address] Referral ID Status Reason Start Date Expiration Date Visits Re quested Visits Authorized [id number] Closed 10/23/2022 11/12/2023 1 1 Reason Comments Establish Care Previous pt. Would l jonathan to discuss SVT and previous treatments. Pt had an Ablation 01/09/2023 Reason Comments Follow-up Post AF ablation Reason Onset Date Comments Error 04/12/2023 Telephone Encounter - Jennyfer Wright Ma - 08/21/2020 10:56 AM EDT Miscellaneous Notes (unrecog nized section and content) Patient is due for EUS for 10/2020. Dr. Black, please place orders and route to [place] Procedure Pool. Jennyfer Wright Ma documented in this encounter <item><item> Privacy Markings (unrecogniz ed section and content) Section Author: Olinda Montana PROHIBITION ON REDISCLOSURE OF CONFIDENTIAL INFORMATION This notice accompanies a disclosure of information concerning a client made to you with the consent of such client. Section Author: Olinda Montana PROHIBITION ON REDISCLOSURE OF CONFIDENTIAL INFORMATION This notice accompanies a disclosure of information concerning a client made to you with the consent of such client. Scheduled Active and Recently Administ ered Medications (unrecognized section and content) Continuous Medication Order 10/16/2022 10/17/2022 10/18/2022 Diltiazem (CARDIZEM) 125 mg in Sodium chloride 0.9% 125 mL IV infusion (CANCELED) 0-15 mg/hr (0-15 mL/hr), Intravenous, CONTINUOUS, Starting on 10/15/22 at 2015, Until 10/17/22 at 0700, Telemetry Required Initiate at 5 mg/hr. Titrate by 2.5 mg/hr every 15 minutes to maintain HR between 80 and 110 BPM. Titrate to the lowest rate to achieve target goal. Notify prescriber for inability to achieve goals at maximum dose of ordered range, SBP<100mmHg or MAP<65mmHg, or change in clinical condition. 0029 (Rate/Dose Change - Provider: Harper Steen RN)0039 (Rate/Dose Verify - Provider: Harper Steen RN)0130 (Rate/Dose Change - Provider: Harper Steen RN)0132 (Rate/Dose Verify - Provider: Harper Steen RN)0249 (Rate/Dose Verify - Provider: Harper Steen RN)0358 (Rate/Dose Change - Provider: Harper Steen RN)0434 (Rate/Dose Verify - Provider: Harper Steen RN)0545 (Rate/Dose Verify - Provider: Harper Steen RN)0605 (Rate/Dose Verify - Provider: Harper Steen RN)1019 (Rate/Dose Verify - Provider: Katherin Hernandez RN)1104 (Stopped - Provider: Katherin Hernandez RN)1108 (Stopped - Provider: Katherin Hernandez RN)1108 ($$New Bag$$ - Provider: Alcira Hauser RN)1201 (Paused - Provider: Katherin Hernandez RN)1201 (Restarted - Provider: Katherin Hernandez RN)1249 (Rate/Dose Change - Provider: Katherin Hernandez RN)1250 (Rate/Dose Verify - Provider: Katherin Hernandez RN)1705 (Rate/Dose Verify - Provider: Katherin Hernandez RN)1922 (Paused - Provider: Joey Swan RN)1925 (Rate/Dose Change - Provider: Joey Swan RN)1939 (Rate/Dose Verify - Provider: Joey Swan RN) 0715 (Paused - Provider: Katherin Hernandez RN)0711 (Restarted - Provider: Katherin Hernandez RN)1383 (Stopped - Provider: Katherin Hernandez RN) PRN Medication Order 10/16/2022 10/17/2022 10/18/2022 Acetaminophen (TYLENOL) tablet 650 mg 650 mg, Oral, EVERY 6 HOURS NEEDED, Starting on Mon10/15/22 at 2002, Until Mon10/18/22 at 1947, Mild Pain, Oral temp > 100.4 F, Maximum dose of acetaminophen is 4000 mg from all sources in 24 hours. alum/mag hydrox.-simethicone oral suspension 30 mL 30 mL, Oral, EVERY 6 HOURS NEEDED, Starting on Mon10/15/22 at 2002, Until Mon10/18/22 at 1947, Indigestion, Per 5 mL is equivalent to: (Alum-Mag Hydroxide 200-225 mg and Simethicone 20 mg) and (Alum-Mag Hydroxide 200-200 mg and Simethicone 20 mg) Benzocaine-menthol (CEPACOL) 15-3.6 MG per lozenge 1 lozenge 1 lozenge, Oral, EVERY 2 HOURS NEEDED, Starting on Mon10/15/22 at 2003, Until Mon10/18/22 at 1947, Sore Throat, Max 8 lozenges/day Patient may self-administer. guaiFENesin (ROBITUSSIN) oral solution 400 mg 400 mg, Oral, EVERY 6 HOURS NEEDED, Starting on Mon10/15/22 at 2003, Until Mon10/18/22 at 1947, Cough, Congestion magnesium oxide (MAG-OX) tablet 800 mg 800 mg, Oral, ADMINISTER DIRECTED, Starting on Mon10/15/22 at 2003, Until Mon10/18/22 at 1947, See admin instructions, For Magnesium 1.6 - 2.0, give 800 mg of Magnesium oxide. Magnesium Sulfate 4 g in sterile water 50 ml premix IVPB 4 g, Intravenous, Administer over 4 Hours, ADMINISTER DIRECTED, Starting on Mon10/15/22 at 2003, Until Mon10/18/22 at 1947, Other, Magnesium Replacement Therapy, If Magnesium less than 1.6, give 4 g Magnesium Sulfate IVPB over 4 hours (may give over 1 hour if arrhythmias present). Melatonin tablet 6 mg 6 mg, Oral, DAILY AT BEDTIME NEEDED, Starting on Mon10/15/22 at 2003, Until Mon10/18/22 at 1947, Insomnia Ondansetron (ZOFRAN) tablet 4 mg(Linked Group 1) 4 mg, Oral, EVERY 6 HOURS NEEDED, Starting on Mon10/15/22 at 2002, Until Mon10/18/22 at 1947, Nausea / Vomiting, 1st line for Nausea/Vomiting Ondansetron 4mg/2ml (ZOFRAN) injection 4 mg(Linked Group 1) 4 mg, Intravenous, EVERY 6 HOURS NEEDED, Starting on Mon10/15/22 at 2002, Until Mon10/18/22 at 1947, Nausea / Vomiting, 1st line for Nausea/Vomiting Polyethylene glycol (MIRALAX) packet 17 g 17 g, Oral, DAILY NEEDED, Starting on Mon10/15/22 at 2003, Until Mon10/18/22 at 1947, Constipation 1st Line Polyvinyl Alcohol-Povidone PF (REFRESH) ophthalmic solution 1 drop 1 drop, Both Eyes, EVERY 1 HOUR NEEDED, Starting on Mon10/15/22 at 2003, Until Mon10/18/22 at 1947, Dry Eyes, Patient may self-administer. Potassium chloride (K-DUR) tablet ER 20-40 mEq 20-40 mEq, Oral, ADMINISTER DIRECTED, Starting on Mon10/15/22 at 2003, Until Mon10/18/22 at 1947, See admin instructions, If SCr 2.0 - 2.5 mg/dL 1. For Potassium 3.6-4.0, give 20 mEq potassium chloride. 2. If Potassium less than 3.6, give 40 mEq potassium chloride, recheck in AM. If SCr greater than 2.5 and potassium less than 4.0, Contact /JANAY for replacement order. Potassium chloride (K-DUR) tablet ER 40-60 mEq 40-60 mEq, Oral, ADMINISTER DIRECTED, Starting on Mon10/15/22 at 2003, Until Mon10/18/22 at 1947, See admin instructions, If SCr less than 2.0 mg/dL 1. For Potassium 3.6 - 4.0, give 40 mEq of Potassium Chloride orally, recheck in the AM. 2. For Potassium less than 3.6, give 60 mEq Potassium Chloride orally, recheck in 8 hours. If potassium is low please administer magnesium first if indicated. Sodium chloride 0.9% IV solution 250 mL Intravenous, at 20 mL/hr, NEEDED, Starting on Mon10/15/22 at 2001, Until Mon10/18/22 at 194, Carrier Fluid - See Admin. Inst, 250mL 0.9NS to be used as carrier fluid for intermittent small volume or piggyback medication administration as needed. Infusion rate of the carrier fluid should be set at 20 mL/hr unless the rate as the intermittent medication is less than 20 mL/hr. For intermittent medications with a rate less than 20 mL/hr set the carrier fluid at that rate of the intermittent or piggy back medication. Linked Groups Order Group 1: Ondansetron 4mg/2ml (ZOFRAN) injection 4 mgJump to med 4 mg, Intravenous, EVERY 6 HOURS NEEDED, Starting on Mon10/15/22 at 2002, Until Mon10/18/22 at 194, Nausea / Vomiting, 1st line for Nausea/Vomiting Or Ondansetron (ZOFRAN) tablet 4 mgJump to med 4 mg, Oral, EVERY 6 HOURS NEEDED, Starting on Mon10/15/22 at 2002, Until Mon10/18/22 at 194, Nausea / Vomiting, 1st line for Nausea/Vomiting Scheduled Medication Order 01/07/2023 01/08/2023 01/09/2023 apixaban (ELIQUIS) tablet 5 mg 5 mg, Oral, EVERY 12 HOURS, First dose on Mon01/09/23 at 1400, Until Discontinued, Due to the rapid onset of action of apixaban, no overlap is needed with other anticoagulants (e.g. enoxaparin, heparin)., Indications: Atrial Fibrillation, Post-op/Post-Proc 1406 (Given - Provid er: Avani Duran RN - Comment: give per Dr Christine at 1400) Aspirin tablet 325 mg (COMPLETED) 325 mg, Oral, ONCE, 1 dose, On Mon01/09/23 at 0545, Pre-op/Pre-Proc 0601 (Given - Provid er: Stephanie Pan RN) methylPREDNISolone (MEDROL) tablet 12 mg 12 mg, Oral, EVERY 4 HOURS, 2 doses, First dose on Mon01/09/23 at 1700, Last dose on Mon01/09/23 at 2200, Medrol dose pack Day total dose equals 24 mg broken into two doses of 12 mg each at dinner and at bedtime., Post-op/Post-Proc methylPREDNISolone (MEDROL) tablet 4 mg 4 mg, Oral, EVERY 4 HOURS, 3 doses, First dose on Mon01/10/23 at 0800, Last dose on Mon01/10/23 at 1800, Medrol dose pack: Day (dose at breakfast, lunch and supper), Post-op/Post-Proc methylPREDNISolone (MEDROL) tablet 4 mg 4 mg, Oral, 4 TIMES DAILY, 4 doses, First dose on Mon01/11/23 at 0900, Last dose on Mon01/11/23 at 2100, Medrol dose pack: (dose at breakfast, noon, supper, bedtime), Post-op/Post-Proc methylPREDNISolone (MEDROL) tablet 4 mg 4 mg, Oral, 3 TIMES DAILY, 3 doses, First dose on Mon01/12/23 at 0900, Last dose on Mon01/12/23 at 2100, Medrol dose pack: Day (dose at breakfast, lunch, bedtime), Post-op/Post-Proc methylPREDNISolone (MEDROL) tablet 4 mg 4 mg, Oral, EVERY 12 HOURS NON-STANDARD, 2 doses, First dose on Mon01/13/23 at 0800, Last dose on Mon01/13/23 at 2000, Medrol dose pack: Day (dose at breakfast, bedtime), Post-op/Post-Proc methylPREDNISolone (MEDROL) tablet 4 mg 4 mg, Oral, DAILY EVERY MORNING, 1 dose, First dose on Mon01/14/23 at 0900, Medrol dose pack: Day (dose at breakfast), Post-op/Post-Proc methylPREDNISolone (MEDROL) tablet 8 mg 8 mg, Oral, DAILY AT BEDTIME, 1 dose, First dose on Mon01/10/23 at 2100, Medrol dose pack: Day (dose at bedtime), Post-op/Post-Proc Pantoprazole (PROTONIX) tablet DR 40 mg 40 mg, Oral, DAILY, First dose on Mon01/09/23 at 1000, Until Discontinued, Swallow whole; do not crush or chew., Indications: Prevention of esophageal injury after catheter ablation, Post-op/Post-Proc 1342 (Given - Provid er: Avani Duran RN) PRN Medication Order 01/07/2023 01/08/2023 01/09/2023 Acetaminophen (TYLENOL) tablet 325 mg 325 mg, Oral, EVERY 6 HOURS NEEDED, Starting on Mon01/09/23 at 0956, Until Mon01/09/23 at 1646, Mild Pain, Maximum dose of acetaminophen is 4000 mg from all sources in 24 hours., Post-op/Post-Proc HYDROmorphone (DILAUDID) injection 0.2 mg 0.2 mg, Intravenous, EVERY 2 HOURS NEEDED, Starting on Mon01/09/23 at 0956, Until Mon01/09/23 at 1646, Severe Pain, Post-op/Post-Proc HYDROmorphone (DILAUDID) injection 0.2 mg(Linked Group 1) 0.2 mg, Intravenous, EVERY 5 MINUTES NEEDED, Starting on Mon01/09/23 at 1011, Until Mon01/09/23 at 1646, Moderate Pain, Severe Pain, Use as initial dose. Higher dose may be administered if lower dose did not result in adverse effects (RR<10, decrease in level of consciousness) and was previously documented as ineffective. May give a total of 4mg in PACU., Recovery HYDROmorphone (DILAUDID) injection 0.5 mg(Linked Group 1) 0.5 mg, Intravenous, EVERY 5 MINUTES NEEDED, Starting on Mon01/09/23 at 1011, Until Mon01/09/23 at 1646, Moderate Pain, Severe Pain, Higher dose may be administered if lower dose did not result in adverse effects (RR<10, decrease in level of consciousness) and was previously documented as ineffective. Decrease back to lower dose if patient has adverse effects, or no PRN used in previous 30 minutes. May give a total of 4mg in PACU ., Recovery Lidocaine (XYLOCAINE) 10 mg/mL injection (CANCELED) Infiltration, NEEDED, Starting on Mon01/09/23 at 0800, Until Mon01/09/23 at 1007, Intra-op/Intra-Proc 0800 (Given - Provid er: Marlin Garza MD) magnesium oxide (MAG-OX) tablet 800 mg 800 mg, Oral, ADMINISTER DIRECTED, Starting on Mon01/09/23 at 0956, Until Mon01/09/23 at 1646, See admin instructions, For Magnesium 1.6 - 2.0, give 800 mg of Magnesium oxide, Post-op/Post-Proc Magnesium sulfate 4 g in sterile water 50 ml premix IVPB 4 g, Intravenous, Administer over 4 Hours, ADMINISTER DIRECTED, Starting on Mon01/09/23 at 0956, Until Mon01/09/23 at 1646, Other, Magnesium Replacement Therapy, If Magnesium less than 1.6, give 4 g Magnesium Sulfate IVPB over 4 hours (may give over 1 hour if arrhythmias present)., Post-op/Post-Proc Ondansetron 4mg/2ml (ZOFRAN) injection 4 mg 4 mg, Intravenous, EVERY 4 HOURS NEEDED, Starting on Mon01/09/23 at 0956, Until Mon01/09/23 at 1646, Nausea / Vomiting, Post-op/Post-Proc oxyCODONE (ROXICODONE) tablet 5 mg(Linked Group 2) 5 mg, Oral, EVERY 4 HOURS NEEDED, Starting on Mon01/09/23 at 0956, Until Mon01/09/23 at 1646, Moderate Pain, Severe Pain, PRN for Moderate Pain. Use for Severe Pain if IV not available for use as initial dose. Higher dose may be administred if lower dose was previously documented as ineffective and did not result in adverse effects (RR<10, decrease in level of consciousness)., Post-op/Post-Proc oxyCODONE HCl (ROXICODONE) tablet 10 mg(Linked Group 2) 10 mg, Oral, EVERY 4 HOURS NEEDED, Starting on Mon01/09/23 at 0956, Until Mon01/09/23 at 1646, Moderate Pain, Severe Pain, PRN for Moderate Pain. Use for Severe Pain if IV not available for use as initial dose. Higher dose may be administred if lower dose was previously documented as ineffective and did not result in adverse effects (RR<10, decrease in level of consciousness), Post-op/Post-Proc Potassium chloride (K-DUR) tablet ER 20 mEq 20 mEq, Oral, ADMINISTER DIRECTED, Starting on Mon01/09/23 at 0956, Until Mon01/09/23 at 1646, See admin instructions, If Cr 2.0 - 2.5 mg/dL For Potassium less than 3.6, give 20 mEq Potassium Chloride orally, recheck in AM. If Cr greater than 2.5 mg/dL contact physician/LIP for Potassium less than 3.6 for replacement orders. If potassium is low please administer magnesium first if indicated, Post-op/Post-Proc Potassium chloride (K-DUR) tablet ER 40-60 mEq 40-60 mEq, Oral, ADMINISTER DIRECTED, Starting on Mon01/09/23 at 0956, Until Mon01/09/23 at 1646, See admin instructions, If Cr less than 2.0 mg/dL 1. For Potassium 3.6 - 4.0, give 40 mEq of Potassium Chloride orally, recheck in the AM. 2. For Potassium less than 3.6, give 60 mEq Potassium Chloride orally, recheck in 8 hours. 3. If potassium is low please administer magnesium first if indicated., Post-op/Post-Proc Prochlorperazine (COMPAZINE) injection 5 mg 5 mg, Intravenous, EVERY 1 HOUR NEEDED, 2 doses, Starting on Mon01/09/23 at 1011, Until Mon01/09/23 at 1646, Nausea / Vomiting, FIRST Line antiemetic, Do not administer within 6 hours of intra-operative dose. For IV route: dilute dose with 10mL normal saline and give by slow IV push at a rate of 5mg/min. Maximum of 40mg/day., Recovery Sodium chloride 0.9% IV solution 500 mL Intravenous, at 10 mL/hr, ADMINISTER DIRECTED, Starting on Mon01/09/23 at 0541, Until Mon01/09/23 at 1646, Per treatment plan, Start the morning of procedure., Pre-op/Pre-Proc 0614 ($$New Bag$$ - Provider: Stephanie Pan RN)0714 (Rate/Dose Change - Provider: LEO Pedro)1000 (Stopped - Provider: LEO Pedro) Sodium chloride 0.9% IV solution Intravenous, at 1 mL/hr, CONTINUOUS NEEDED, Starting on Mon01/09/23 at 0956, Until Mon01/09/23 at 1646, See administration instructions, Per pressure bag for all transduced lines., Post-op/Post-Proc Linked Groups Order Group 1: HYDROmorphone (DILAUDID) injection 0.2 mgJump to med 0.2 mg, Intravenous, EVERY 5 MINUTES NEEDED, Starting on Mon01/09/23 at 1011, Until Mon01/09/23 at 1646, Moderate Pain, Severe Pain
Use as initial dose. Higher dose may be administered if lower dose did not result in adverse effects (RR<10, decrease in level of consciousness) and was previously documented as ineffective. May give a total of 4mg in PACU.
Recovery Or HYDROmorphone (DILAUDID) injection 0.5 mgJump to med 0.5 mg, Intravenous, EVERY 5 MINUTES NEEDED, Starting on Mon01/09/23 at 1011, Until Mon01/09/23 at 1646, Moderate Pain, Severe Pain
Higher dose may be administered if lower dose did not result in adverse effects (RR<10, decrease in level of consciousness) and was previously documented as ineffective. Decrease back to lower dose if patient has adverse effects, or no PRN used in previous 30 minutes. May give a total of 4mg in PACU .
Recovery Group 2: oxyCODONE (ROXICODONE) tablet 5 mgJump to med 5 mg, Oral, EVERY 4 HOURS NEEDED, Starting on Mon01/09/23 at 0956, Until Mon01/09/23 at 1646, Moderate Pain, Severe Pain
PRN for Moderate Pain. Use for Severe Pain if IV not available for use as initial dose. Higher dose may be administred if lower dose was previously documented as ineffective and did not result in adverse effects (RR<10, decrease in level of consciousness).
Post-op/Post-Proc Or oxyCODONE HCl (ROXICODONE) tablet 10 mgJump to med 10 mg, Oral, EVERY 4 HOURS NEEDED, Starting on Mon01/09/23 at 0956, Until Mon01/09/23 at 1646, Moderate Pain, Severe Pain
PRN for Moderate Pain. Use for Severe Pain if IV not available for use as initial dose. Higher dose may be administred if lower dose was previously documented as ineffective and did not result in adverse effects (RR<10, decrease in level of consciousness)
Post-op/Post-Proc Care Teams (unrecognized sec tion and content) Senior Telecommunications Engineer Relationship Specialty Start Date End Date Nnamdi Garcia MD [address] [place] [address] PCP - General Family Medicine 10/30/19 Senior Telecommunications Engineer Relationship Specialty Start Date End Date Nnamdi Garcia MD [address] [place] [address] PCP - General Family Medicine 10/15/22 Senior Telecommunications Engineer Relationship Specialty Start Date End Date Nnamdi Garcia MD [address] [place] [address] PCP - General Family Medicine 10/15/22 Senior Telecommunications Engineer Relationship Specialty Start Date End Date Nnamdi Garcia MD [address] [place] [address] PCP - General Family Medicine 10/15/22 Senior Telecommunications Engineer Relationship Specialty Start Date End Date Nnamdi Garcia MD [address] [facility] [address] [place] [address] PCP - General Family Medicine 10/15/22 Senior Telecommunications Engineer Relationship Specialty Start Date End Date Nnamdi Garcia MD [address] [place] [address] PCP - General Family Medicine 10/15/22 FOR RECORDS PERTAINING TO PATIENTS WHO ARE OR HAVE BEEN ENROLLED IN A CHEMICAL DEPENDENCY/SUBSTANCEABUSE PROGRAM, SOME INFORMATION MAY BE OMITTED. This clinical summary was aggregated from multiple sources. Caution should be exercised in using it in the provision of clinical care. This summary normalizes information from multiple sources, and as a consequence, information in this document may materially change the coding, format and clinical context of patient data. In addition, data may be omitted in some cases. CLINICAL DECISIONS SHOULD BE BASED ON THE PRIMARY CLINICAL RECORDS. [employer] [facility]. provides no warranty or guarantee of the accuracy or completeness of information in this document.
[2023-10-19] MEDS: Rabies Vaccine,Human Diploid 2.5 UNITS Vial IM (09:16)
== END 2023-10-19 09:57 | disposition home or self-care (01) ==
PROVIDERS: PCP Family Medicine; Visit Provider Emergency Medicine
DX: Z23 Encounter for immunization (principal)
CPT/HCPCS: 90675; 96372

== ENCOUNTER → 2024-04-04 | Outpatient (CLI) | payer OTHER, SELFPAY ==
[2024-04-04 15:57] LABS: ALB/GLOB Ratio 1.2 RATIO (0.9-2.4); AST(SGOT) 21 U/L (15-37); Alanine Aminotransfer ALT/SGPT 33 U/L (16-61); Albumin, Serum 4.2 g/dL (3.2-5.0); Alkaline Phosphatase 49 U/L (45-117); Anion Gap 6 (5-15); BUN 11 mg/dL (7-18); BUN/Creat Ratio 10.9 RATIO (10-20); Calcium,Total 9.7 mg/dL (8.5-10.1); Chloride 107 mmol/L (98-107); Cholesterol 192 mg/dL (200); Creatinine, Serum 1.01 mg/dL (0.70-1.30); EST Glomerular Filtration Rate 81 mL/min (>60); Est Glom Filt Rate - Afr Amer 98 mL/min (>60); Globulin 3.6 g/dL (2.2-4.2); Glucose 91 mg/dL (74-106); High Density Lipoprotein 61 mg/dL; Potassium 4.4 mmol/L (3.5-5.1); Protein, Total 7.8 g/dL (6.4-8.2); Sodium Level 137 mmol/L (136-145); Triglycerides 158 mg/dL; Very Low Density Lipoprotein 32 mg/dL (5-40)
== END | disposition home or self-care (01) ==
LOC: MFPLAB 11:29
PROVIDERS: PCP Family Medicine; Visit Provider Family Medicine
DX: E78.1 Pure hyperglyceridemia (principal)
CPT/HCPCS: 36415; 80053; 80061

== ENCOUNTER 2024-05-14 07:24 | Day surgery (SDC) | payer OTHER, SELFPAY ==
[2024-05-14] VITALS (9 sets, daily range): BP systolic 108–130; BP diastolic 72–84; PULSE 70–81; RESP 16–18; TEMP 36.3–36.8; O2SAT 94–97; BMI 31.8
[2024-05-14] MEDS: Lactated Ringers 1,000 ML 15 ML IV (07:57)
--- NOTE | 2024-05-14 08:08 | PRE.ANES_ITS ---
ASA Classification* ASA Classification ASA Classification: 2 Assessment & Plan Anesthesia* Anesthesia Assessment Anesthesia Assessment: Discussed sedation and/or anesthesia options, risks, benefits, and alternatives with patient/parents/legal guardian/POA. Questions invited. The patient/parents/legal guardian/POA seems to understand and agrees to proceed with anesthesia plan. Reviewed the physical assessment, medical history, allergy history and patient home medications list prior to surgery/procedure/anesthetic and documented any changes. Performed airway and anesthesia risk assessments. Anesthesia Type Anesthesia Type: MAC Anesthesia Focused Assessment* Temperature: 97.3 F Pulse Rate: 81 Blood Pressure: 130/84 Respiratory Rate: 16 Pulse Ox: 94 Airway Assessment Mouth opens: >3 cm Mallampati Score: II Focused Labs Anesthesia Preop lab: CBC WBC 9.3 K/mm3 (4.4-11.0) 10/15/22 08:55 RBC 5.42 M/mm3 (4.6-6.2) 10/15/22 08:55 Hgb 16.2 g/dL (13.0-16.5) 10/15/22 08:55 Hct 49.2 % (40-54) 10/15/22 08:55 Plt Count 337 K/mm3 (150-450) 10/15/22 08:55 CHEMISTRY Potassium 4.4 mmol/L (3.5-5.1) 04/04/24 11:29 Sodium 137 mmol/L (136-145) 04/04/24 11:29 Magnesium 2.6 mg/dL (1.6-2.6) 10/05/22 05:04 BUN 11 mg/dL (7-18) 04/04/24 11:29 Creatinine 1.01 mg/dL (0.70-1.30) 04/04/24 11:29 Glucose 91 mg/dL (74-106) 04/04/24 11:29 TSH 1.62 uIU/mL (0.358-3.74) 10/04/22 10:45 COAG PT 12.7 SECONDS (11.7-14.9) 10/15/22 08:55 Pre-Assessment Diagnosis/Proposed Procedure Planned Operative Procedure(s): COLONOSCOPY Anesthesia History 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 When Was Last Pacemaker Check QUESTION #4 FULL TEXT: You/Your Family Experience fever (hyperthermia) with Anesthesia Last Oral Intake Last Oral intake: Last Oral Intake NPO since 20:30 05/14/24 07:48 Meds taken in AM with sips of water? 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 Female No 05/10/24 09:57 HX of Motion Sickness No 05/10/24 09:57 HX of N/V After Surgery No 05/10/24 09:57 Non-Smoker Yes 05/10/24 09:57 Duration of Surgery greater No 05/10/24 09:57 than 60 minutes Number of Risk Factors 1 05/10/24 09:57 PONV Score Low Risk 05/10/24 09:57 Height & Weight Height & Weight: Anesthesia: Height & Weight Height 6 ft 1 in 05/14/24 07:48 Weight: 109.679 kg 05/14/24 07:48 Body Mass Index (BMI) 31.8 05/14/24 07:48 Respiratory Assessment Respiratory Assessment - solder technician: Respiratory Tract Infection Hx - solder technician Hx Respiratory Tract Infection No 05/10/24 09:57 STOP Sleep Apnea STOP Sleep Apnea - solder technician: STOP Sleep Apnea - solder technician Hx Hypertension Yes: CONTROLLED ON MED 05/10/24 09:57 Hx Sleep Apnea Yes 05/10/24 09:57 CPAP Yes 05/10/24 09:57 BIPAP No 05/10/24 09:57 Do you snore loudly (louder than talking or can be heard Do you often feel tired/ fatigued/ sleepy during daytime? Has anyone observed you stop breathing during sleep? STOP Results Positive 05/10/24 09:57 QUESTION #5 FULL TEXT : Do you snore loudly (louder than talking or can be heard through closed doors)? 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 Specify any problems Hx of Preganancy in last 3 N/A 05/10/24 09:57 Months Nurse Filling Out Transfusion VCHRISTIN 05/10/24 09:57 & Questions: Date: 05/10/24 05/10/24 09:57 Time: 09:58 05/10/24 09:57 Patient unable to answer at this time (ie. confused, unrespo /Reproduction History /Reproductive History - solder technician: /Reproductive Hx- solder technician Hx Now Gestational Age (in weeks): EDC: Hx Hx Para Hx Section SAB Active Medications Active Medications: Current Medications Generic Name Dose Route Start Last Admin Trade Name Freq PRN Reason Stop Dose Admin Lactated Ringer's 1,000 mls @ 15 mls/hr 05/14/24 07:30 05/14/24 07:57 IV 15 mls/hr .Q48H PRINCESS Administration PFSH Medical History Wears glasses Alcohol use Gastric reflux Former smoker CPAP (continuous positive airway pressure) dependence History of echocardiogram History of stress test Hypertension Cardiology follow-up encounter History of irregular heartbeat SVT (supraventricular tachycardia) Borderline systolic HTN Coronary artery calcification Pure hypercholesterolemia Gastric mass Epigastric pain Anxiety Sleep apnea GERD (gastroesophageal reflux disease) Home Medications ?Medication ?Instructions ?Recorded ?Last Taken ?Type loratadine 10 mg tablet 10 mg PO DAILY Allergies 03/20/18 05/13/24 History multivitamin 1 ea PO DAILY Supplement 03/20/18 05/11/24 History amitriptyline 25 mg tablet 25 mg PO QHS 07/09/20 05/13/24 History ascorbic acid (vitamin C) 500 mg 500 mg PO DAILY 07/09/20 05/11/24 History tablet cholecalciferol (vitamin D3) 125 125 mcg PO DAILY 07/09/20 05/11/24 History mcg (5,000 unit) capsule dupilumab 300 mg/2 mL subcutaneous 300 mg subcut Q2W eczema 09/06/21 05/09/24 History pen injector (Dupixent) apixaban 5 mg tablet 5 mg PO BID #180 tabs 12/08/22 05/11/24 Rx metoprolol tartrate 50 mg tablet 25 mg PO BID 01/26/23 05/14/24 06:30 History omega-3 fatty acids 1,000 mg 1,000 mg PO DAILY 01/26/23 05/11/24 History capsule evolocumab 140 mg/mL subcutaneous See Rx Instructions .Route 08/01/23 05/06/24 Rx syringe (Repatha Syringe) .COMPLEX #2 mL pitavastatin calcium 4 mg tablet 4 mg PO DAILY #30 TABLETS 03/06/24 05/13/24 Rx gemfibrozil 600 mg tablet 600 mg PO BID #180 TABLETS 04/08/24 05/13/24 Rx amlodipine 10 mg tablet 10 mg PO DAILY 05/10/24 05/13/24 History Allergy/AdvReac Type Severity Reaction Status Date / Time latex Allergy Itching Verified 05/14/24 07:45 atorvastatin AdvReac Severe Myalgias Verified 05/14/24 07:45 simvastatin AdvReac Severe myalgias Verified 05/14/24 07:45 lisinopril AdvReac Intermediate cough Verified 05/14/24 07:45 Family History Father Heart disease Myocardial infarction Cancer pancreas Mother Diabetes Cardiac pacemaker in situ Heart valve disorder Surgical History History of esophagogastroduodenoscopy (EGD) Hx of prior ablation treatment S/P ablation of atrial fibrillation History of arthroscopy of left knee History of vasectomy History of colonoscopy (~2017) Social History Smoking Status: Former smoker how long ago did patient quit smokin alcohol intake: current alcohol intake frequency: a few times a week substance use type: does not use caffeine: Yes Type: coffee Number of servings: 3 Review of Systems (Anesthesia) ROS Narrative System reviewed and no additional complaints, except as documented.
--- NOTE | 2024-05-14 09:04 | PCM.HP.BLA ---
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 Required: No Is patient in pain?: No Allergies latex Allergy (Verified 04/16/24 09:52) Itchingatorvastatin Adverse Reaction (Severe, Verified 04/16/24 09:52) Myalgiassimvastatin Adverse Reaction (Severe, Verified 04/16/24 09:52) myalgiaslisinopril Adverse Reaction (Intermediate, Verified 04/16/24 09:52) cough Medications ?Medication ?Instructions ?Recorded ?Confirmed ?Type loratadine 10 mg tablet 10 mg PO DAILY Allergies 03/20/18 04/16/24 History multivitamin 1 ea PO DAILY Supplement 03/20/18 04/16/24 History amitriptyline 25 mg tablet 25 mg PO QHS 07/09/20 04/16/24 History ascorbic acid (vitamin C) 500 mg 500 mg PO DAILY 07/09/20 04/16/24 History tablet cholecalciferol (vitamin D3) 125 125 mcg PO DAILY 07/09/20 04/16/24 History mcg (5,000 unit) capsule dupilumab 300 mg/2 mL subcutaneous 300 mg subcut Q2W eczema 09/06/21 04/16/24 History pen injector (Dupixent) apixaban 5 mg tablet 5 mg PO BID #180 tabs 12/08/22 04/16/24 Rx metoprolol tartrate 50 mg tablet 25 mg PO BID 01/26/23 04/16/24 History omega-3 fatty acids 1,000 mg 1,000 mg PO DAILY 01/26/23 04/16/24 History capsule evolocumab 140 mg/mL subcutaneous See Rx Instructions .Route 08/01/23 04/16/24 Rx syringe (Repatha Syringe) .COMPLEX #2 mL pitavastatin calcium 4 mg tablet 4 mg PO DAILY #30 TABLETS 03/06/24 04/16/24 Rx gemfibrozil 600 mg tablet 600 mg PO BID #180 TABLETS 04/08/24 04/16/24 Rx PFSH Medical History (Reviewed 01/26/23 @ 10:56 by Noris Plummer FIELD CANE SCALE CLERK, FIELD CANE SCALE CLERK-C) Anxiety Borderline systolic HTN Coronary artery calcification Epigastric pain Gastric mass GERD (gastroesophageal reflux disease) Pure hypercholesterolemia Sleep apnea SVT (supraventricular tachycardia) Surgical History History of arthroscopy of left knee History of colonoscopy (~2018) History of vasectomy S/P ablation of atrial fibrillation Family History Father Heart disease Myocardial infarction Cancer pancreasMother Diabetes Cardiac pacemaker in situ Heart valve disorder Social History Smoking Status: Former smoker how long ago did patient quit smokin alcohol intake: current alcohol intake frequency: a few times a week substance use type: does not use caffeine: Yes Type: coffee Number of servings: 3 HPI HPI HPI: Patient is a 58-year-old male here for follow-up for polyps. Patient colonoscopy 6 years ago and a tubular adenoma was removed. He denies abdominal pain or blood in the stool or any GI upset issues or family history of colon cancer. ROS General General: No weight change, appetite, fatigue, colon cancer, breast cancer or weakness HEENT HEENT: No difficulty swallowing, eye injury, eye surgery, swollen glands or hoarseness Endo Endocrine: No thyroid disease, diabetes mellitus, thyroid cancer, Hair loss, heat intolerance or cold intolerance Skin Skin: No rash or changing moles Breast Breast: No left breast lump, right breast lump, nipple discharge, breast pain, abnormal mammogram, abnormal US or breast enlargement Musc Musculoskeletal: No back problems, arthritis, rheumatoid arthritis, gout or joint pain Cardio Cardiovascular: Yes high blood pressure; No murmur, pacemaker, heart disease, atrial fibrillation, heart attack, heart stent, palpitations, shortness of breat with exertion or chest pain Psych Psychiatric: Yes anxiety; No depression or hearing voices Resp Respiratory: No shortness of breath, Yes sleep apnea, No cough, No COPD, No asthma, No emphysema and No wheezing Gastro Gastrointestinal: No abdominal pain, No nausea or vomiting, No diarrhea, No constipation, No blood in stool, Yes acid reflux, No hemorrhoids, No ulcers, No gallbladder problem and No black,tarry stools Ramos Hematologic: Yes blood thinners, No blood disorders, No bleeding, No anemia and No blood clots Neuro Neurologic: No system reviewed and no additional complaints, except as documented, No as per HPI, No abnormal gait, No abnormal hearing, No abnormal movements, No abnormal speech, No behavioral changes, No burning sensations, No confusion, No convulsions, No disequilibrium, No dizziness, No localized weakness, No frequent falls, No headache(s), No lack of coordination, No loss of vision, No memory loss, No numbness, No other visual disturbances, No radicular pain, No restless legs, No sensory deficit, No syncope, No tingling, No tremor(s), No weakness and No other Exam Const General: cooperative Orientation: alert and oriented x3 HENMT Head: normal to inspection Neck Neck: normal visual inspection and full ROM Chest Chest palpation & inspection: normal inspection of the chest Resp Effort & Inspection: normal respiratory effort Auscultation: clear to auscultation bilaterally Cardio Rate: regular rate Rhythm: regular rhythm GI Inspection: non-distended Palpation: soft and nontender Skin General: no rashes or lesions noted Neuro General: patient alert and patient oriented x3 Extrem General: full ROM Psych Appearance: grossly normal Mental Status: mental status grossly normal Assessment and Plan Assessment and Plan (1) History of colon polyps: Status: Acute Plan: The patient has a history of colon polyps that is 1 year overdue for surveillance colonoscopy. I discussed colonoscopy with him. He is having no issues at this time. I explained endoscopy in detail to the patient. I explained the risks including but not limited to stroke or heart attack with anesthesia, perforation of the GI tract, bleeding, infection. I explained that any of these could necessitate further emergency surgery. The patient understands and all questions were answered sufficiently. The patient wishes to proceed with procedure. Patient will hold his Eliquis for 2 days prior to the colonoscopy. Shade Toure MD Pager: [facility] [address] [place] [address], [address] [place] [address] Office: I have examined the patient and the H&P has been reviewed. There are no clinical changes since date of exam.
--- NOTE | 2024-05-14 09:46 | PCM.POST.ANE ---
Anesthesia: Postop Eval I Current Vital Signs Temperature: 97.9 F Pulse Rate: 78 Blood Pressure: 111/72 Respiratory Rate: 18 Pulse Ox: 97 Oxygen Delivery Method: Room Air Assessment Airway patent: Yes Spontaneous unlabored respirations: Yes Mental status: Awake and Calm nausea: No Vomiting: No Anesthesia Complication: No Fluid Hydration Crystalloid volume administer (ml): 400 Total IV fluid infused: 400 Progress Note Anesthesia document: Postop Eval 1 completed: Yes
--- NOTE | 2024-05-14 09:54 | OP.COLON_ITS ---
Patient Name: Jose G Davila Procedure Date: 05/14/2024 9:05 AM Date of : 1965 Age: 58 Procedure: Colonoscopy Indications: High risk colon cancer surveillance: Personal history of colonic polyps Providers: Shade Toure MD Referring MD: Nnamdi Garcia MD Medicines: Propofol per Anesthesia Patient Profile: This is a 58 year old male. Refer to note in patient chart for documentation of history and physical. Last Colonoscopy: several years ago. Complications: No immediate complications. Procedure: Pre-Anesthesia Assessment: - Prior to the procedure, a History and Physical was performed, and patient medications and allergies were reviewed. The patient's tolerance of previous anesthesia was also reviewed. The risks and benefits of the procedure and the sedation options and risks were discussed with the patient. All questions were answered, and informed consent was obtained. Prior Anticoagulants: The patient has taken no anticoagulant or antiplatelet agents. After reviewing the risks and benefits, the patient was deemed in satisfactory condition to undergo the procedure. After I obtained informed consent, the scope was passed under direct vision. Throughout the procedure, the patient's blood pressure, pulse, and oxygen saturations were monitored continuously. The colonoscope was introduced through the anus and advanced to the cecum, identified by appendiceal orifice and ileocecal valve. The colonoscopy was performed without difficulty. The patient tolerated the procedure well. The quality of the bowel preparation was good. The ileocecal valve, appendiceal orifice, and rectum were photographed. Scope In: 9:32:09 AM Scope Withdrawal Time 0 hours 6 minutes 9 seconds Scope Out: 9:42:10 AM Total Procedure Duration Time 0 hours 10 minutes 1 second Findings: The entire examined colon appeared normal on direct and retroflexion views. Impression: - The entire examined colon is normal on direct and retroflexion views. - No specimens collected. Recommendation: - Discharge patient to home. - Resume previous diet. - Continue present medications. - Repeat colonoscopy in 10 years for screening purposes. Procedure Code(s): --- Professional --- 69326, Colonoscopy, flexible; diagnostic, including collection of specimen(s) by brushing or washing, when performed (separate procedure) Diagnosis Code(s): --- Professional --- Z86.010, Personal history of colonic polyps CPT copyright 2021 [employer]. All rights reserved. The codes documented in this report are preliminary and upon corn sheller operator review may be revised to meet current compliance requirements. Shade Toure MD 05/14/2024 9:54:08 AM This report has been signed electronically. Number of Addenda: 0 Note Initiated On: 05/14/2024 9:05 AM
--- NOTE | 2024-05-14 09:55 | OP.CCLET_ITS ---
05/14/2024 Nnamdi Garcia MD [address] [phone] Re : Colonoscopy procedure for Jose G Davila Dear Dr. Garcia This procedure was performed on Tuesday, May 14, 2024. My impressions and recommendations are as follows: Impressions : - The entire examined colon is normal on direct and retroflexion views. - No specimens collected. Recommendations : - Discharge patient to home. - Resume previous diet. - Continue present medications. - Repeat colonoscopy in 10 years for screening purposes. My findings are described in the full procedure note, which is enclosed. If I can be of further assistance, please feel free to contact me at Doctor phone number(s): , Work: . Sincerely, Shade Toure MD 05/14/2024 9:54:08 AM This report has been signed electronically.
--- NOTE | 2024-05-14 10:49 | POSTOPAN2_ITS ---
Anesthesia Postop Eval I Sum Postop Eval Completion status Anesthesia document: Postop Eval 1 completed: Yes Anesthesia Postop Eval I Summary Anesthesia Postop Eval I Summary: Anesthesia Postop Eval I: Assessment Summary Airway patent Yes 05/14/24 09:47 FLAG [email or web address] Spontaneous unlabored Yes 05/14/24 09:47 FLAG [email or web address] respirations Mental status Awake,Calm 05/14/24 09:47 FLAG [email or web address] nausea No 05/14/24 09:47 FLAG [email or web address].[email or web address] Vomiting No 05/14/24 09:47 FLAG [email or web address] Anesthesia Postop Eval I: Fluid Summary Crystalloid volume administer 400 05/14/24 09:47 FLAG [email or web address] (ml) Colloids volume administered ( ml) Blood Product volume administered (ml) Total IV fluid infused 400 05/14/24 09:47 FLAG [email or web address] Anesthesia Postop Eval I: Summary Notes Anesthesia Complication No 05/14/24 09:47 FLAG [email or web address] Anesthesia Complication Comment: Post-operative progress note Anesthesia: Postop Eval II Evaluation Mental status: Awake and Calm Pain Level: 0 nausea: No Vomiting: No Complications Anesthesia Complication: No
--- NOTE | 2024-05-14 10:49 | PCM.POSTANE2 ---
Anesthesia Postop Eval I Sum Postop Eval Completion status Anesthesia document: Postop Eval 1 completed: Yes Anesthesia Postop Eval I Summary Anesthesia Postop Eval I Summary: Anesthesia Postop Eval I: Assessment Summary Airway patent Yes 05/14/24 09:47 CAKE PRESS [email or web address] Spontaneous unlabored Yes 05/14/24 09:47 CAKE PRESS OPERATOR.[email or web address] respirations Mental status Awake,Calm 05/14/24 09:47 CAKE PRESS [email or web address].[email or web address] nausea No 05/14/24 09:47 CAKE PRESS OPERATOR.[email or web address] Vomiting No 05/14/24 09:47 CAKE PRESS [email or web address].[email or web address] Anesthesia Postop Eval I: Fluid Summary Crystalloid volume administer 400 05/14/24 09:47 CAKE PRESS [email or web address] (ml) Colloids volume administered ( ml) Blood Product volume administered (ml) Total IV fluid infused 400 05/14/24 09:47 CAKE PRESS [email or web address].[email or web address] Anesthesia Postop Eval I: Summary Notes Anesthesia Complication No 05/14/24 09:47 CAKE PRESS [email or web address].[email or web address] Anesthesia Complication Comment: Post-operative progress note Anesthesia: Postop Eval II Evaluation Mental status: Awake and Calm Pain Level: 0 nausea: No Vomiting: No Complications Anesthesia Complication: No
== END 2024-05-14 10:30 | disposition home or self-care (01) ==
LOC: EN 07:24 → AC 07:25
PROVIDERS: PCP Family Medicine; Referring Provider Family Medicine; Visit Provider Surgery
PROC: 0DJD8ZZ Inspection of Lower Intestinal Tract, Via Natural or Artificial Opening Endoscopic (ICD-10-PCS; CPT 45378; principal; 2024-05-14 08:25)
DX: Z12.11 Encounter for screening for malignant neoplasm of colon (principal); I25.10 Atherosclerotic heart disease of native coronary artery without angina pectoris; Z86.010 Personal history of colon polyps; Z87.891 Personal history of nicotine dependence; E78.00 Pure hypercholesterolemia, unspecified; K21.9 Gastro-esophageal reflux disease without esophagitis; I10 Essential (primary) hypertension; F41.9 Anxiety disorder, unspecified; Z79.01 Long term (current) use of anticoagulants; Z79.899 Other long term (current) drug therapy
CPT/HCPCS: 45378; J7120

== ENCOUNTER → 2024-10-03 | Outpatient (CLI) | payer OTHER, SELFPAY ==
[2024-10-03 11:00] LABS: ALB/GLOB Ratio 1.2 RATIO (0.9-2.4); AST(SGOT) 18 U/L (15-37); Alanine Aminotransfer ALT/SGPT 32 U/L (16-61); Albumin, Serum 4.1 g/dL (3.2-5.0); Alkaline Phosphatase 43 U/L (45-117); Anion Gap 7 (5-15); BUN 13 mg/dL (7-18); Calcium,Total 9.4 mg/dL (8.5-10.1); Chloride 106 mmol/L (98-107); Cholesterol 171 mg/dL (200); Creatinine, Serum 1.08 mg/dL (0.70-1.30); EST Glomerular Filtration Rate 75 mL/min (>60); Est Glom Filt Rate - Afr Amer 90 mL/min (>60); Globulin 3.5 g/dL (2.2-4.2); Glucose 109 mg/dL (74-106); High Density Lipoprotein 60 mg/dL; Potassium 4.2 mmol/L (3.5-5.1); Protein, Total 7.6 g/dL (6.4-8.2); Sodium Level 138 mmol/L (136-145); Triglycerides 196 mg/dL; Very Low Density Lipoprotein 39 mg/dL (5-40)
== END | disposition home or self-care (01) ==
LOC: MFPLAB 08:35
PROVIDERS: PCP Family Medicine; Referring Provider Family Medicine; Visit Provider Family Medicine
DX: I10 Essential (primary) hypertension (principal)
CPT/HCPCS: 36415; 80053; 80061